=== PATIENT | female | born 1955 | race Caucasian/White ===

== ENCOUNTER 2020-05-22 09:43 | Outpatient (REF) | payer MEDICARE, SELFPAY | END 2020-05-22 09:44 | disposition home or self-care (01) | LOC: HO.LAB 09:43 | PROVIDERS: Visit Provider Internal Medicine | DX: Z20.828 Contact with and (suspected) exposure to other viral communicable diseases (principal) | CPT/HCPCS: C9803; U0003 ==

== ENCOUNTER 2021-01-28 09:04 | Emergency (ER) | payer MEDICARE, SELFPAY ==
--- NOTE | ~2021-01-28 | XR_ITS ---
EXAMINATION: XR CHEST CLINICAL INFORMATION: Bilateral flank pain COMPARISON: None TECHNIQUE: 2 views of the chest were obtained. FINDINGS: Lungs are clear. There is no pneumothorax, pneumomediastinum, or free air beneath the diaphragms. No hyperinflation, airspace consolidation, or effusion. The heart is normal in size. The costophrenic sulci are clear. The heart is normal in size and the hilar and mediastinal contours are normal. Bony structures are unremarkable. XR/XR chest 2V IMPRESSION: Unremarkable examination.
[2021-01-28 10:08] VITALS: BP 153/98; PULSE 62; RESP 16; TEMP 36.6; O2SAT 98; BMI 25.6
[2021-01-28] MEDS: Cyclobenzaprine HCl 5 MG TABLET PO (10:22)
[2021-01-28] MEDS: Lidocaine 4 % Patch ADH..PATCH 1 PATCH TRANSDERMA (10:23)
[2021-01-28] MEDS: Ketorolac Tromethamine 15 MG/ML VIAL IM ×2 (10:23)
--- NOTE | 2021-01-28 10:32 | ED.BACK ---
HPI - Back Pain/Injury General Chief Complaint: Back Pain/Injury Stated Complaint: Back Pain, nausea Time Seen by Provider: 01/28/21 09:59 Source: patient Mode of arrival: ambulatory History of Present Illness HPI Narrative: 65-year-old female with a past medical history of hyperlipidemia, hypertension, presenting to the ED complaining of bilateral flank pain and nausea nausea x1 week, and nonbloody diarrhea x3 weeks. Admits to golfing, denies other injury/trauma or falls. Denies fever, chills, vomiting, constipation, hematuria, dysuria, bloody BM/melena, numbness/tingling, CP/SOB Denies suspicious food intake, recent travel MD elicited complaint: back pain Related Data Previous Rx's Medication Instructions Recorded acetaminophen [Tylenol Extra 500 mg PO Q6H PRN #20 tab 01/28/21 Strength] cyclobenzaprine 5 mg PO Q8H PRN 5 Days #14 tab 01/28/21 lidocaine [Lidoderm] 1 patch TOPICAL DAILY PRN #30 ea 01/28/21 MDD remove after 12 hours naproxen 500 mg PO BID PRN 10 Days #20 tab 01/28/21 ondansetron HCl [Zofran] 4 mg PO Q8H PRN #10 tab 01/28/21 oxycodone 5 mg PO Q8H PRN 3 Days #9 tab 01/28/21 Allergies Allergy/AdvReac Type Severity Reaction Status Date / Time No Known Allergies Allergy Unverified 03/28/20 17:23 Review of Systems Review of Systems: Constitutional: No Fever, No Chills, No Fatigue, No Malaise Cardiovascular: No Chest Pain, No SOB Respiratory: No Cough, No Dyspnea Gastrointestinal: + Nausea, No Vomiting, + Diarrhea, No Constipation, No Abdominal pain, No Hematochezia, No Melena Genitourinary: No Dysuria, No Urinary Frequency, No Hematuria, + Flank Pain, No Urinary Flow Changes, No Hesitancy Musculoskeletal: No joint pain, No Myalgias, No Joint Swelling Skin: No Skin Lesions, No rash Neuro: No Weakness, No Numbness, No Paresthesias, No Headache Yes all other systems are reviewed and are negative Neurologic: Denies Sensory deficit (Neuro) [facility] Past Medical History Attestation statement: The following information was validated with the patient. Medical History (Updated 01/28/21 @ 11:22 by EZEQUIEL Sunshine) HLD (hyperlipidemia) HTN (hypertension) Social History Social History Alcohol intake: never Patient Tobacco Use Status: Never used Tobacco Use of substances other than those prescribed or required for medical reasons: No Advance Directives: No Advance Directives Information Provided: No Physical Exam Vital Signs: Vital Signs: Last Vital Signs Temp 97.9 F 01/28/21 10:08 Pulse 62 01/28/21 10:08 Resp 16 01/28/21 10:08 BP 153/98 H 01/28/21 10:08 Pulse Ox 98 01/28/21 10:08 Body Mass Index 25.6 Const: General: cooperative, healthy appearing and no acute distress Orientation/consciousness: patient oriented x3 Limitations: no limitations HENMT: Head: Yes normal to inspection Ears: hearing grossly normal bilaterally General nose exam: Normal external nose present Face and sinus: Yes normal facial exam Eyes: General: appearance normal, both eyes and all related structures EOM: EOMs intact bilaterally Neck: Neck: Yes normal visual inspection and Yes no meningeal signs Resp: Effort & Inspection: normal respiratory effort Auscultation: clear to auscultation bilaterally, no rales, no rhonchi and no wheezes Cardio: Rate: regular rate Heart sounds: S1 normal heart sound present and S2 normal heart sound present GI: Inspection: Yes normal to inspection Palpation (GI): Soft to palpation, nontender, no guarding and not rigid : General: Yes CVA tenderness bilateral Back/Spine/Pelvis: Other: No midline cervical/thoracic/lumbar spinous tenderness/step-off or deformity Skin: Rashes: no rashes Wounds: no wounds Neuro: Other: No saddle anesthesia General: patient oriented x3, gait normal, tone normal, moves all extremities and no meningeal signs Gait exam (Neuro): Normal gait present Motor exam (neuro): 5/5 motor strength present throughout Sensory Exam: No Sensory deficit (Neuro) Extrem: General: Yes normal to inspection Course Course Course Narrative: XR chest 2V IMPRESSION: Unremarkable examination. -1108--UA with trace blood patient with known history of hematuria. Not infected. Admits had outpatient labs through [facility] drawn this week which were WNL other than mildly elevated bilirubin. Patient reports back pain still present, discussed/offered labs and stool study, with shared decision making and recent labs just performed patient would like to follow-up with PCP, given sterile to provide stool sample for outpatient stool studies with PCP. Results discussed with patient, low suspicion for renal stone/pyelonephritis with UA results. Likely MSK pain. Worrisome signs and symptoms and strict return precautions discussed including close follow-up with PCP, patient verbalized understanding feel safe for discharge home MDM - Back Pain/Injury MDM Narrative Medical decision making narrative: 65-year-old female with a past medical history of hyperlipidemia, hypertension, presenting to the ED complaining of bilateral flank pain and nausea nausea x1 week, and diarrhea x3 weeks. On exam vital signs stable, NAD/nontoxic, no midline spinous tenderness throughout, no red flag symptoms, lungs CTA, bilateral CVAT. Concern for MSK pain vs pyelo vs ?Renal stone vs underlying pneumonia. Low concern for PE Plan: UA, CXR, symptomatic treatment, +/-lab/US, reassess Lab Data Labs: Lab Results 01/28/21 Range/Units 10:28 Urine Color YELLOW Urine Appearance CLEAR Urine pH 7.5 (5.0-8.0) Ur Specific [place] 1.010 (1.005-1.025) Urine Protein NEG (NEG-TRACE) MG/DL Urine Glucose (UA) NEG (NEG) MG/DL Urine Ketones NEG (NEG) MG/DL Urine Blood TRACE (NEG) Urine Nitrite NEG (NEG) Ur Leukocyte Esterase NEG (NEG) Urine RBC 1-4 (0) /HPF Urine WBC 0-2 (0-4) /HPF Ur Squamous Epith Cells TRACE /LPF Urine Bacteria NONE /LPF Discharge Plan Discharge Clinical Impression: Thoracic back pain, Diarrhea Patient Disposition: Home, Self-Care Instructions: Acute Diarrhea (ED), Back Pain (ED) Additional Instructions: Your x-ray was unremarkable, your urine had trace blood which is chronic for you Your given a sterile cup, please supply your PCP with a stool sample Zofran as an antinausea medication, take as needed Make sure you are staying hydrated at home Please call your doctor for follow-up Your pain is likely musculoskeletal Flexeril is a muscle relaxer, take at night as it makes you drowsy, do not drive, drink alcohol, or operate machinery while taking it Naproxen as an anti-inflammatory / pain medication, take with food Lidoderm patches are numbing patches, apply to painful area In addition take Tylenol at home Oxycodone as an opiate pain medication, take only when pain is severe for the next 3 days If symptoms persist or worsen, pain becomes unbearable, you developed urinary retention or incontinence, or weakness return to the ED Prescriptions: New ondansetron HCl [Zofran] 4 mg tablet 4 mg PO Q8H PRN (Reason: nausea and vomiting) Qty: 10 RF: 0 cyclobenzaprine 5 mg tablet 5 mg PO Q8H PRN (Reason: pain (scale score 7-10)) 5 Days Qty: 14 RF: 0 acetaminophen [Tylenol Extra Strength] 500 mg tablet 500 mg PO Q6H PRN (Reason: pain or fever) Qty: 20 RF: 0 lidocaine [Lidoderm] 5 % adhesive patch,medicated 1 patch topical DAILY MDD remove after 12 hours PRN (Reason: pain) Qty: 30 RF: 0 naproxen 500 mg tablet 500 mg PO BID PRN (Reason: pain) 10 Days Qty: 20 RF: 0 oxycodone 5 mg tablet 5 mg PO Q8H PRN (Reason: pain, severe) 3 Days Qty: 9 RF: 0 Referrals: Yesenia Moreno NP [Primary Care Provider] - 2 days
[2021-01-28 10:49] LABS: Glucose Urine UA NEG (NEG); Leukocyte Esterase Urine NEG (NEG); Nitrite Urine NEG (NEG); PH 7.5 (5.0-8.0); Urine Blood TRACE (NEG); Urine Ketones NEG (NEG); Urine Protein NEG (NEG-TRACE)
[2021-01-28 10:51] LABS: Appearance Urine CLEAR; Color Urine YELLOW
[2021-01-28 11:06] LABS: Squamous Epithelial Cell Urine TRACE /LPF; WBC Urine 0-2 /HPF (0-4)
== END 2021-01-28 11:39 | disposition home or self-care (01) ==
PROVIDERS: Physician Assistant; Emergency Provider Emergency Medicine; PCP Nurse Practitioner Family
DX: M54.6 Pain in thoracic spine (principal); R19.7 Diarrhea, unspecified; I10 Essential (primary) hypertension
CPT/HCPCS: 71046; 81001; 96372; 99284; J1885

== ENCOUNTER 2021-01-29 10:28 | Outpatient (REF) | payer MEDICARE, OTHER, SELFPAY ==
[2021-01-29 11:30] LABS: CDiff Gene PCR NEGATIVE (Negative)
== END 2021-01-29 10:29 | disposition home or self-care (01) ==
LOC: HO.LNP 10:28
PROVIDERS: PCP Nurse Practitioner Family; Visit Provider Physician Assistant
DX: R19.7 Diarrhea, unspecified (principal)
CPT/HCPCS: 87045; 87046; 87493

== ENCOUNTER 2021-06-10 09:42 | Outpatient (REF) | payer MEDICARE, OTHER, SELFPAY ==
[2021-06-10 10:14] LABS: COVID-19 Test Negative (Negative)
== END 2021-06-10 09:43 | disposition home or self-care (01) ==
LOC: HO.LAB 09:42
PROVIDERS: Visit Provider Internal Medicine
DX: Z20.822 Contact with and (suspected) exposure to COVID-19 (principal)
CPT/HCPCS: 36415; 87635; C9803

== ENCOUNTER 2021-06-16 09:59 | Outpatient (REF) | payer MEDICARE, OTHER, SELFPAY | END 2021-06-16 10:00 | disposition home or self-care (01) | LOC: HO.LAB 09:59 | PROVIDERS: Visit Provider Internal Medicine | DX: Z20.822 Contact with and (suspected) exposure to COVID-19 (principal) | CPT/HCPCS: C9803; U0003; U0005 ==

== ENCOUNTER 2022-02-04 08:49 | Emergency (ER) | payer MEDICARE, OTHER, SELFPAY ==
[2022-02-04 09:26] VITALS: BP 146/78; PULSE 66; RESP 18; TEMP 36.9; O2SAT 97; BMI 24.7
[2022-02-04 10:20] LABS: MANUAL DIFF FLAG NO
[2022-02-04 10:22] LABS: Basophils Percent Auto 0.5 % (0-2); Eosinophils Absolute Auto 0.2 X10*3/uL (0.0-0.4); Eosinophils Percent Auto 3.9 % (0-4); Hematocrit 44.2 % (37.0-47.0); Hemoglobin 14.7 g/dl (12.0-16.0); Imm Gran Abs Auto 0.01 X10*3/uL (0.00-0.03); Imm Gran Pct Auto 0.2 % (0.0-0.4); Lymphocytes Percent Auto 34.2 % (20-40); Mean Corpuscular HGB Conc 33.3 g/dl (31.0-35.0); Mean Corpuscular Hemoglobin 29.6 pg (27.0-33.0); Mean Corpuscular Volume 89.1 fL (80.0-98.0); Mean Platelet Volume 9.3 fL (9.4-12.3); Monocytes Absolute Auto 0.5 X10*3/uL (0.1-1.2); Monocytes Percent Auto 7.7 % (2-11); Neutrophils Absolute Auto 3.1 x10*3/uL (2.0-8.3); Neutrophils Percent Auto 53.5 % (45-73); Platelet Count 219 X10*3/uL (160-400); Red Blood Count 4.96 X10*6/uL (4.20-5.50); White Blood Count 5.9 X10*3/uL (4.8-10.8)
[2022-02-04 10:40] LABS: Anion Gap 12 (12-20); Blood Urea Nitrogen 18 mg/dL (9-16); Calcium 9.1 mg/dL (8.4-10.2); Carbon Dioxide 27 mmol/L (22-29); Chloride 105 mmol/L (96-108); Estimated Glomerular Filt Rate > 60; Glucose Random 88 mg/dL (60-115); Sodium 140 mmol/L (135-145)
--- NOTE | 2022-02-04 13:29 | ED.EXTPRO ---
HPI - Extremity Problem General Chief complaint: Extremity Problem Stated complaint: R ARM NUMBNESS BURNING NO KNOWN INJ Time Seen by Provider: 02/04/22 13:06 Source: patient Mode of arrival: ambulatory Limitations: no limitations History of Present Illness HPI Narrative: Patient presents to the emergency department for evaluation of right arm pain described as burning, with intermittent numbness. She is from [place] currently staying with her mother until April. She states that she was being treated for a ?pinched nerve? she had been given a Medrol Dosepak without significant improvement, had been in physical therapy for 3 sessions without any improvement. She presents today as she continues to have this same pain. She does note that it is worse at night, and she had a really difficult time sleeping last night. She denies any neck pain, any precipitating injuries. Denies any symptoms to the left upper extremity, no back pain, no bladder or bowel dysfunction, no numbness or tingling to the lower extremities nor weakness. Related Data Previous Rx's Medication Instructions Recorded acetaminophen 500 mg tablet 500 mg PO Q6H PRN pain or fever 01/28/21 (Tylenol Extra Strength) #20 tabs cyclobenzaprine 5 mg tablet 5 mg PO Q8H PRN pain (scale score 01/28/21 7-10) 5 days #14 tabs lidocaine 5 % topical patch 1 patch topical DAILY PRN pain #30 01/28/21 (Lidoderm) ea naproxen 500 mg tablet 500 mg PO BID PRN pain 10 days #20 01/28/21 tabs ondansetron HCl 4 mg tablet 4 mg PO Q8H PRN nausea and 01/28/21 (Zofran) vomiting #10 tabs oxycodone 5 mg tablet 5 mg PO Q8H PRN pain, severe 3 01/28/21 days #9 tabs Allergies Allergy/AdvReac Type Severity Reaction Status Date / Time No Known Allergies Allergy Unverified 03/28/20 17:23 Review of Systems Review of Systems: Constitutional: No weight loss. No fever. No chills. No weakness. No fatigue. Skin: No rash. No itching. Cardiovascular: No chest pain. No chest pressure. No palpitations. No pedal edema. Respiratory: No shortness of breath. No cough. No sputum production. Gastrointestinal: No anorexia. No nausea. No vomiting. No diarrhea. No abdominal pain. Genitourinary: No burning micturition. No urinary frequency. No incontinence. Neurologic: No headache. No dizziness. No pre-syncope/ syncope. No unilateral weakness. No ataxia. Positive intermittent numbness. No tingling. No change in bowel or bladder control. Musculoskeletal: Positive arm pain No back pain. No joint pain. No stiffness. Hematologic: No bleeding. No bruising. Lymphatics: No enlarged lymph nodes. Psychiatric:No depression. No anxiety. Endocrine: No reports of sweating. No cold or heat intolerance. No polyuria. No polydipsia. Yes all other systems are reviewed and are negative [facility] Past Medical History Attestation statement: The following information was validated with the patient. Source: old records reviewed Medical History HLD (hyperlipidemia) HTN (hypertension) Social History Social History Alcohol intake: never Patient Tobacco Use Status: Never used Tobacco Advance Directives: No Advance Directives Information Provided: No Physical Exam Vital Signs: Vital Signs: Last Vital Signs Temp 98.4 F 02/04/22 09:26 Pulse 66 02/04/22 09:26 Resp 18 02/04/22 09:26 BP 146/78 H 02/04/22 09:26 Pulse Ox 97 02/04/22 09:26 O2 Del Method 02/04/22 09:26 BMI result Body Mass Index 24.7 Appearance: Alert.?Oriented to person, place and time. No acute distress.?Normal affect. Eyes: Pupils equal, round and reactive to light.? ENT: Pharynx normal.?? Neck: Normal inspection.? Neck supple.??No midline cervical spine tenderness, step-offs, deformities CVS: Heart sounds normal. Normal heart rate and rhythm.? Pulses normal.?? Respiratory: No respiratory distress.? Lung sounds clear to auscultation bilaterally?? Abdomen: Soft and non-tender. Normoactive bowel sounds. ? Skin: Skin warm and dry.? Normal skin color.? ? Extremities: No lower extremity edema.? Bilateral upper extremity strength strong and equal. Palpable 2+ radial pulse bilaterally. Phalen sign is equivocal. Tinel sign is equivocal Neuro: Moves all extremities spontaneously. Sensation intact bilaterally. CN II-XII intact. No focal neuro deficits. Ambulates with normal steady gait. Course Course Course Narrative: Patient is a 66-year-old female with a past medical history of hypertension and hyperlipidemia presented to the emergency department for evaluation of persistent right arm pain described as burning with intermittent, pain is been ongoing over the past 3 weeks but was noted to be worse last night. There is no neurological deficit distally. No weakness. Has full AROM to the right shoulder. She was previously being treated for a pinched in her before she came to visit her mother for a few months. She states that she had an x-ray of her cervical spine and an x-ray of her right shoulder both of which were unremarkable. Given that the pain is felt to be particularly worse at night especially to her hand and forearm we discussed the possibility of carpal tunnel syndrome, Phalen sign and Tinel sign are equivocal on exam difficult for her to discern whether the symptoms are exacerbated with either movement. Discussed treatment with anti-inflammatories, as well as a wrist splint which she agrees to purchase from a pharmacy. She states that she does not have a primary care provider in this location or insurance. She plans to go back to her home residence in April, which is 3 months from now. Discussed that she likely needs further outpatient workup for evaluation of nerve impingement or EMG studies for carpal tunnel syndrome. Advised patient that I could prescribe her a short course of gabapentin to trial and see whether this helps with her pain as it does sound neuropathic in nature. She states that she does not want to take the medication if she is not going to be given an extended course of it. Discussed that that I would not prescribe an extended course from an emergency department setting, she would need appropriate follow-up. Encouraged her to consider establishing care with a primary care provider in this area she is going to remain here for some time. Patient states she will continue taking her naproxen as well as trialing the wrist splints at night. Discussed worsening signs that she should return back emergency department for. All questions were answered, she was discharged home in stable condition. MDM - Extremity (Nontraumatic) Medical Records Attestation: I reviewed the patient's medical records. Lab Data Attestation: I reviewed the patient's lab results. Result diagrams: 02/04/22 10:15 02/04/22 10:15 Labs: Lab Results 02/04/22 02/04/22 Range/Units 10:15 10:15 WBC 5.9 (4.8-10.8) X10*3/uL RBC 4.96 (4.20-5.50) X10*6/uL Hgb 14.7 (12.0-16.0) g/dl Hct 44.2 (37.0-47.0) % MCV 89.1 (80.0-98.0) fL MCH 29.6 (27.0-33.0) pg MCHC 33.3 (31.0-35.0) g/dl RDW 13.0 (11.0-16.0) % Plt Count 219 (160-400) X10*3/uL MPV 9.3 L (9.4-12.3) fL Immature Gran % (Auto) 0.2 (0.0-0.4) % Neut % (Auto) 53.5 (45-73) % Lymph % (Auto) 34.2 (20-40) % [place] % (Auto) 7.7 (2-11) % Eos % (Auto) 3.9 (0-4) % Baso % (Auto) 0.5 (0-2) % Lymph # (Auto) 2.0 (1.2-4.9) X10*3/uL [place] # (Auto) 0.5 (0.1-1.2) X10*3/uL Eos # (Auto) 0.2 (0.0-0.4) X10*3/uL Baso # (Auto) 0.0 (0.0-0.2) X10*3/uL Abs Immat Gran (auto) 0.01 (0.00-0.03) X10*3/uL Absolute Neuts (auto) 3.1 (2.0-8.3) x10*3/uL Absolute Nucleated RBC 0.000 (0.0-0.012) X10*3/uL Nucleated RBC % (auto) 0.0 (0.0-0.2) /100WBC Sodium 140 (135-145) mmol/L Potassium 4.0 (3.3-5.1) mmol/L Chloride 105 (96-108) mmol/L Carbon Dioxide 27 (22-29) mmol/L Anion Gap 12 (12-20) BUN 18 H (9-16) mg/dL Creatinine 0.81 (0.5-1.4) mg/dL Estim Creat Clear Calc 58.0 Estimated GFR > 60 Random Glucose 88 (60-115) mg/dL Calcium 9.1 (8.4-10.2) mg/dL Discharge Plan Discharge Clinical Impression: Neuropathy, Arm pain Patient Disposition: Home, Self-Care Instructions: Peripheral Neuropathy (ED), Arm Pain (ED) Additional Instructions: You advised us that you are being treated for a pinched nerve by your doctor, you had an x-ray of your neck and your right shoulder which were normal. You trialed a steroid Dosepak without significant improvement as well as physical therapy. As we discussed, the symptoms that you are describing seem most consistent with neuropathy, which may be secondary to a pinched nerve, we also discussed the possibility of carpal tunnel syndrome as a cause for your symptoms. Use a neutral/cock-up wrist splint at night You were offered a medication called gabapentin to trial for your pain however you declined and will continue taking your naproxen. As we discussed, you will likely need further outpatient workup, including EMG nerve studies, and possible MRI in the future. If you are going to remain in this area, you should consider having a primary care provider established here. Please feel free to return to the emergency department with any new or worsening symptoms or concerns. Prescriptions: No Action ondansetron HCl [Zofran] 4 mg tablet 4 mg PO Q8H PRN (Reason: nausea and vomiting) Qty: 10 0RF cyclobenzaprine 5 mg tablet 5 mg PO Q8H PRN (Reason: pain (scale score 7-10)) 5 Days Qty: 14 0RF acetaminophen [Tylenol Extra Strength] 500 mg tablet 500 mg PO Q6H PRN (Reason: pain or fever) Qty: 20 0RF lidocaine [Lidoderm] 5 % adhesive patch,medicated 1 patch topical DAILY MDD remove after 12 hours PRN (Reason: pain) Qty: 30 0RF Rx Instructions: leave on most painful area for up to 12 hrs naproxen 500 mg tablet 500 mg PO BID PRN (Reason: pain) 10 Days Qty: 20 0RF oxycodone 5 mg tablet 5 mg PO Q8H PRN (Reason: pain, severe) 3 Days Qty: 9 0RF Interventions: ED Discharge Assessment Last Done: 02/04/22 13:41 Discharge Date/Time: 02/04/22 13:42
== END 2022-02-04 13:42 | disposition home or self-care (01) ==
PROVIDERS: Emergency Provider Emergency Medicine
DX: G62.9 Polyneuropathy, unspecified (principal); M79.601 Pain in right arm; I10 Essential (primary) hypertension; E78.5 Hyperlipidemia, unspecified
CPT/HCPCS: 36415; 80048; 85025; 99282; 99283

== ENCOUNTER 2025-06-26 11:58 | Emergency (ER) | payer MEDICARE, SELFPAY ==
--- OUTSIDE RECORDS SUMMARY | 2024-07-20 03:45 | XMS_ITS ---
Author Organization [facility] Address [address] [address] Care Team Providers Care Shoe Cobbler Name Role Phone syeda rankin Primary Care Provider Unavailvicky e Kevin Heath Unavailable [phone] PCP, NO Unavailable Unavailable REASON FOR VISIT EKG Encounters Encounter Location Date Provider Diagnosis [facility] [address] [place] [phone] 07/20/2024 Kevin Heath HTN Hypertension I10 Assessments Encounter Date Diagnosis (ICD Code) Assessment Notes Treatment Notes Treatment Clinical Notes Section Notes 07/20/2024 HTN Hypertension (ICD-10 - I10) Plan Of Treatment Pending Test Test Name Order Date Electrocardiogram (EKG) 07/20/2024 Next Appt Details Provider Name:Kevin Heath 07/13 09:00:00 AM, [facility], [address], Provider Name:Kevin Heath 07/13 09:15:00 AM, [facility] [address], [address], Progress Notes * ASMITA KIMOB:1955 (69 yo F)Acc No.[id number]:07/20/2024 Progress Notes Patient: SAULO GTZ Provider: Blanca Heath MD, Ph D, [facility]1955 A ge:68 Y S ex:Female Date:07/20/2024 Address:[address] [place] [phone] Pcp:syeda rankin Subjective: * Chief Complaints: * 1 . EKG. * Medical History: Objective: * Vitals: Assessment: * Assessment: 1. H TN Hypertension - I10 (Primary) Plan: * Treatment: * Procedure Codes: 9 3000 ELECTROCARDIOGRAM, COMPLETE * * Electronic signature of Kevin Heath [facility] on 06/26/2025 at 07:56 PM EST Sign off status: Pending * Provider: Blanca Heath MD, Ph D, [facility] Date: 0 07/20/2024 Generated for Rory cardona/Nissa/Kostaitting on: 08/27/2024 07:56 PM EST
--- OUTSIDE RECORDS SUMMARY | 2025-01-18 02:45 | XMS_ITS ---
Author Organization [facility] Address [facility] [address] Care Team Providers Care Sales Associate Key Holder Name Role Phone syeda rankin Primary Care Provider Kevin Hess [phone] PCP, NO Unavailable Unavailable REASON FOR VISIT Echocardiogram Encounters Encounter Location Date Provider Diagnosis [place] [id number] [address] 01/18/2025 Kevin Heath Tricuspid Regurgita tion, nonrheumatic I36.1 Assessments Encounter Date Diagnosis (ICD Code) Assessment Notes Treatment Notes Treatment Clinical Notes Section Notes 01/18/2025 Tricuspid Regurgitation, nonrheumatic (ICD-10 - I36.1) Plan Of Treatment Pending Test Test Name Order Date Echocardiogram 01/18/2025 Next Appt Details Provider Name:Kevin Heath 07/13 09:00:00 AM, [facility] [address], [address], Provider Name:Kevin Heath 07/13 09:15:00 AM, [facility] [address], [address], Progress Notes * ASMITA KIMOB:1955 (69 yo F)Acc No.[id number]:01/18/2025 Progress Notes Patient: SAULO GTZ Provider: Blanca Heath MD, Ph D, [facility] :1955 A ge:69 Y S ex:Female Date:01/18/2025 Address:[address] [place] [phone] Pcp:syeda rankin Subjective: * Chief Complaints: * 1 . Echocardiogram. * Medical History: Objective: * Vitals: Assessment: * Assessment: 1. T ricuspid Regurgitation, nonrheumatic - I36.1 (Primary) Plan: * Treatment: * Procedure Codes: 9 3306 ECHO TTE W/DOPPLER, COMPLETE * * Electronic signature of Kevin Heath [facility] on 06/26/2025 at 07:53 PM EST Sign off status: Pending * Provider: Blanca Heath MD, Ph D, [facility] Date: 0 01/18/2025 Generated for Rory cardona/Nissa/Kostaitting on: 1 08/27/2024 07:53 PM EST
--- OUTSIDE RECORDS SUMMARY | 2025-01-23 04:00 | XMS_ITS ---
Author Organization [facility] Address [address] [place] [address] Care Team Providers Care Advertising Photographer Name Role Phone syeda rankin Primary Care Provider Kevin Hess Unavailable [phone] PCP, NO Unavailable Unavailable REASON FOR VISIT EKG Encounters Encounter Location Date Provider Diagnosis [facility] [address] [place] [phone] 01/23/2025 Kevin Heath Tricuspid Regurgita tion, nonrheumatic I36.1 and HTN Hypertension I10 Assessments Encounter Date Diagnosis (ICD Code) Assessment Notes Treatment Notes Treatment Clinical Notes Section Notes 01/23/2025 Tricuspid Regurgitation, nonrheumatic (ICD-10 - I36.1) 01/23/2025 HTN Hypertension (ICD-10 - I10) Plan Of Treatment Pending Test Test Name Order Date Electrocardiogram (EKG) 01/23/2025 Next Appt Details Provider Name:Kevin Heath 07/13 09:00:00 AM, [facility] [address], [address], Provider Name:Kevin Heath 07/13 09:15:00 AM, [facility] [place] [address], [phone], Progress Notes * ASMITA KIMOB:1955 (69 yo F)Acc No.[id number]:01/23/2025 Progress Notes Patient: SAULO GTZ Provider: Blanca Heath MD, Ph D, [facility] :1955 A ge:69 Y S ex:Female Date:01/23/2025 Address:[address] [place], [place] [phone] Pcp:syeda rankin Subjective: * Chief Complaints: * 1 . EKG. * Medical History: Objective: * Vitals: Assessment: * Assessment: 1. T ricuspid Regurgitation, nonrheumatic - I36.1 (Primary) 2 . H TN Hypertension - I10 Plan: * Treatment: 2. H TN Hypertension I maging: Electrocardiogram (EKG) * Procedure Codes: 9 3000 ELECTROCARDIOGRAM, COMPLETE * * Electronic signature of Kevin Heath [facility] on 06/26/2025 at 07:55 PM EST Sign off status: Pending * Provider: Blanca [facility] MD, Ph D, [facility] Date: 0 01/23/2025 Generated for Rory cardona/Nissa/Kostaitting on: 1 08/27/2024 07:55 PM EST
--- OUTSIDE RECORDS SUMMARY | 2025-04-03 09:45 | XMS_ITS ---
Author Organization [facility] Address [address] [address] Care Team Providers Care Ladies Locker Room Attendant Name Role Phone syeda rankin Primary Care Provider Unavailvicky e Kevin Heath Unavailable [phone] PCP, NO Unavailable Unavailable REASON FOR VISIT EKG Encounters Encounter Location Date Provider Diagnosis [facility] [address] [place] [phone] 04/03/2025 Kevin Heath HTN Hypertension I10 Assessments Encounter Date Diagnosis (ICD Code) Assessment Notes Treatment Notes Treatment Clinical Notes Section Notes 04/03/2025 HTN Hypertension (ICD-10 - I10) Plan Of Treatment Pending Test Test Name Order Date Electrocardiogram (EKG) 04/03/2025 Next Appt Details Provider Name:Kevin Heath 07/13 09:00:00 AM, [facility], [address], Provider Name:Kevin Heath 07/13 09:15:00 AM, [facility] [address], [address], Progress Notes * ASMITA KIMOB:1955 (69 yo F)Acc No.[id number]:04/03/2025 Progress Notes Patient: SAULO GTZ Provider: Blanca Heath MD, Ph D, [facility]1955 A ge:69 Y S ex:Female Date:04/03/2025 Address:[address] [place] [id number] Pcp:syeda rankin Subjective: * Chief Complaints: * 1 . EKG. * Medical History: Objective: * Vitals: Assessment: * Assessment: 1. H TN Hypertension - I10 (Primary) Plan: * Treatment: * Procedure Codes: 9 3000 ELECTROCARDIOGRAM, COMPLETE * * Electronic signature of Kevin Heath [facility] on 06/26/2025 at 07:53 PM EST Sign off status: Pending * Provider: Blanca Heath MD, Ph D, [facility] Date: 0 04/03/2025 Generated for Rory cardona/Nissa/Kostaitting on: 1 08/27/2024 07:53 PM EST
--- OUTSIDE RECORDS SUMMARY | 2025-04-09 05:30 | XMS_ITS ---
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 I25.10 and Abn EKG R94.31 Assessments Encounter Date Diagnosis (ICD Code) Assessment Notes Treatment Notes Treatment Clinical Notes Section Notes 04/09/2025 Atherosclerotic heart disease of [place] coronary artery without angina pectoris (ICD-10 - I25.10) 04/09/2025 Abn EKG (ICD-10 - R94.31) Plan Of Treatment Pending Test Test Name Order Date Nuclear Stress Test Exercise 04/09/2025 Next Appt Details Provider Name:Kevin Heath 07/13 09:00:00 AM, [facility] [address], [address], Provider Name:Kevin Heath 07/13 09:15:00 AM, [facility] [address], [address], Progress Notes * GUME KIM:1955 (69 yo F)Acc No.[id number]:04/09/2025 Progress Notes Patient: SAULO GTZ Provider: Blanca Heath MD, Ph D, [facility] :1955 A ge:69 Y S ex:Female Date:04/09/2025 Address:[address] [place], [place] [phone] Pcp:syeda rankin Subjective: * Chief Complaints: * 1 . stress test, fasting, nothing to eat or drink after midnight except water, no caffine 12 hours prior, please arrive at 9:30am Nuclear stress test. * Medical History: Objective: * Vitals: Assessment: * Assessment: 1. A therosclerotic heart disease of [place] coronary artery without angina pectoris - I25.10 (Primary) 2 . A bn EKG - R94.31 Plan: * Treatment: 2. O thers I maging: Nuclear Stress Test Exercise * Procedure Codes: 9 3015 CARDIOVASCULAR STRESS TEST, A9500 TC 99M [facility]CH[facility], Units: 2.00 , 08205 HT MUSCLE IMAGE SPECT MULT GLOBAL * * Electronic signature of Kevin Heath [facility] on 06/26/2025 at 07:53 PM EST Sign off status: Pending * Provider: Blanca Heath MD, Ph D, [facility] Date: 0 04/09/2025 Generated for Rory cardona/Nissa/Pablo on: 1 08/27/2024 07:53 PM EST
--- OUTSIDE RECORDS SUMMARY | 2025-04-16 09:00 | XMS_ITS ---
Author Organization [facility] Address [address] [address] Care Team Providers Care Cage Loader Name Role Phone syeda rankin Primary Care Provider Kevin Hess [phone] PCP, NO Unavailable Unavailable Allergies No Known Allergies REASON FOR VISIT 2 Weeks (Reason: Stress test) Medications Medication SIG (Take, Route, Frequency, Duration) Notes Start Date End Date Status Losartan Potassium 25 MG 1 tablet Orally Once a day; Duration: 90 days 09/20/2023 Active Atorvastatin Calcium 20 MG 1 tablet Oral ly Once a day; Duration: 90 days Active Aspirin 81 MG 1 tablet Orally Once a day; Duration: 30 day(s) Active Omeprazole 20 MG 1 tablet 30 minutes before morning meal Orally Once a day as needed as needed Active Nitroglycerin 0.4 MG 1 tablet under the tongue and allow to dissolve as needed. Take every 5 minutes up to 3 times if chest pain persists Sublingual as directed; Duration: 30 days Active Social History Tobacco Use: Social History Observation Description Date Details (start date - stop date) Former Smoker NA - NA Tobacco Control (Standard) Question Answer Notes Tobacco use: Former smoker How long has it been since you last smoked? Grea ter than 10 years Encounters Encounter Location Date Provider Diagnosis [facility] [address] [address] 04/16/2025 Kevin Heath Atherosclerotic hea rt disease of [place] coronary artery with unspecified angina pectoris I25.119 ; HTN Hypertension I10 ; Other hyperlipidemia E78.49 ; Palpitations R00.2 ; Abn EKG R94.31 ; Bradycardia R00.1 ; Tricuspid Regurgitation, nonrheumatic I36.1 ; Dizziness R42 and Other specified symptoms and signs involving the circulatory and respiratory systems R09.89 Assessments Encounter Date Diagnosis (ICD Code) Assessment Notes Treatment Notes Treatment Clinical Notes Section Notes 04/16/2025 Atherosclerotic heart disease of [place] coronary artery with unspecified angina pectoris (ICD-10 - I25.119) Mild to moderate non-obstructive CAD per [facility] 07/29/23. CP presents. Continue aggressive risk factor modifications. Continue optimal medical therapy. Order nitroglycerin 0.4 mg PRN. Continue ASA/statin therapy. Patient is not a good candidate for beta-vaibhav due to underlying bradycardia. order stress test to evaluate for ischemia Patient instructed to call 911 or present to the nearest ER for any concerning symptoms and expressed full understanding. 04/16/2025 HTN Hypertension (ICD-10 - I10) Stable. Well controlled on losartan 25mg daily, extra does prn Renal US 07/18/24: Abdominal aorta 2.0 cm, right RAR 2.11, left RAR 3.03 Pt intolerant to amlodipine. recommend patient to continue low salt diet, closely monitor BP at home, call office if BP is high. 04/16/2025 Other hyperlipidemia (ICD-10 - E78.49) Lipid panel 07/29/2023 TC 159, TG 48, HDL 77, LDL 72. 01/16/2025: TC 159, TG 62, HDL 72, LDL 75 Goal LDL <70, h/o muscle pain and fatigue on higher dose of statin. Advised lifestyle modifications. Continue heart healthy diet, continue statin therapy. Routine labs per PCP 04/16/2025 Palpitations (ICD-10 - R00.2) Stable. Not a good candidate for BB due to underlying bradycardia. If worsening symptoms, consider event monitor vs Holter monitor. Closely monitor HR. Periodic EKG Patient advised to avoid caffeine, ETOH and other stimulants Increase hydration Patient also advised to go to ED if palpitations worsen. 04/16/2025 Abn EKG (ICD-10 - R94.31) SR with acceptable HR. Routine EKG survelliance. 04/16/2025 Bradycardia (ICD-10 - R00.1) HR acceptable in office. Consider Event monitor vs Holter monitor in the future. Closely monitor HR. periodic ECG 04/16/2025 Tricuspid Regurgitation, nonrheumatic (ICD-10 - I36.1) mild TR Stable. Routine ECHO survelliance. 04/16/2025 Dizziness (ICD-10 - R42) Stable. Advised well hydration and slow position changes. Closely monitor BP and HR. 04/16/2025 Other specified symptoms and signs involving the circulatory and respiratory systems (ICD-10 - R09.89) b/l normal carotid arteries. stable Continue ASA/statin therapy. Routine survelliance. 04/16/2025 Other The patient car e coordinated with Dr. Brown by Florencio Richmond PA-C Plan Of Treatment Medication Medication Name Sig Start Date Stop Date Notes Nitroglycerin 0.4 MG 1 tablet under the tongue and allow to dissolve as needed. Take every 5 minutes up to 3 times if chest pain persists Sublingual as directed; Duration: 30 days Treatment Notes Assessment Notes Atherosclerotic heart diseas e of [place] coronary artery with unspecified angina pectoris Mild to moderate non-obstructive CAD per [facility] 07/29/23. CP presents. Continue aggressive risk factor modifications. Continue optimal medical therapy. Order nitroglycerin 0.4 mg PRN. Continue ASA/statin therapy. Patient is not a good candidate for beta-vaibhav due to underlying bradycardia. order stress test to evaluate for ischemia Patient instructed to call 911 or present to the nearest ER for any concerning symptoms and expressed full understanding. HTN Hypertension Stable. Well controlled on losartan 25mg daily, extra does prn Renal US 07/18/24: Abdominal aorta 2.0 cm, right RAR 2.11, left RAR 3.03 Pt intolerant to amlodipine. recommend patient to continue low salt diet, closely monitor BP at home, call office if BP is high. Other hyperlipidemia Lipid panel 07/29/2023 TC 159, TG 48, HDL 77, LDL 72. 01/16/2025: TC 159, TG 62, HDL 72, LDL 75 Goal LDL <70, h/o muscle pain and fatigue on higher dose of statin. Advised lifestyle modifications. Continue heart healthy diet, continue statin therapy. Routine labs per PCP Palpitations Stable. Not a good candidate for BB due to underlying bradycardia. If worsening symptoms, consider event monitor vs Holter monitor. Closely monitor HR. Periodic EKG Patient advised to avoid caffeine, ETOH and other stimulants Increase hydration Patient also advised to go to ED if palpitations worsen. Abn EKG SR with acceptable HR. Routine EKG survelliance. Bradycardia HR acceptable in office. Consider Event monitor vs Holter monitor in the future. Closely monitor HR. periodic ECG Tricuspid Regurgitation, nonrheumatic mild TR Stable. Routine ECHO survelliance. Dizziness Stable. Advised well hydration and slow position changes. Closely monitor BP and HR. Other specified symptoms and signs involving the circulatory and respiratory systems b/l normal carotid arteries. stable Continue ASA/statin therapy. Routine survelliance. 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 Brown by Florencio Richmond PA-C Next Appt Details Provider Name:Kevin Heath, 07/13 09:00:00 AM, [address] [place] [address], [phone], Provider Name:Kevin Heath, 07/13 09:15:00 AM, [address] [place] [address], [phone], Progress Notes * ASMITA KIMOB:1955 (69 yo F)Acc No.[id number]:04/16/2025 Progress Notes Patient: SAULO GTZ Provider: Blanca Heath MD, Ph D, [facility] :1955 A ge:69 Y S ex:Female Date:04/16/2025 Address:[address] [place], [place] [phone] Pcp:syeda rankin Subjective: * Chief Complaints: * 1 . 2 Weeks (Reason: Stress test). * HPI: F ollow-Up Visit Note: 69 year old female with PMH of HTN, HLD, bradycardia, mild to moderate CAD per [facility] 07/29/23, GERD, remote smoking, h/o breast cancer, pancreatic cyst managed by Dr. Nathan at [facility] who comes to the office for a follow up. Patient presents to office due to complaints of chest pain. Patient states symptoms started last Wednesday and comes and goes. Patient states symptoms feel sharp and dull. Symptom occurs on the l eft side of her chest. Patient has associated symptoms of SOB that occurs with chest discomfort. Patient denies any active pain in the office. Patient has palpitations that are unchanged from baseline. Patient denies syncope, TIA/stroke symptoms, or edema. BP 130/76, HR 60. EKG today shows SR with HR 59. DIAGNOSTICS: Carotid US 09/14/23 b/l normal carotid arteries. ECHO 07/27/23 (PCP) mild LVH, EF 60-65%, Grade I DD, mild AV sclerosis, mild TR. ECHO 01/18/25: Mild LVH, EF 60-65%, grade IDD, trace AR/MR, mild TR, RVSP 34 mmHg LHC 07/29/23 mild to moderate non-obstructive CAD, mCFx 30% stenosis, OM1 30%m LAD 30-50% stenosis, DIAG 50% stenosis, RPDA 30% stenosis, EF 55%. Renal US 07/18/24: Abdominal aorta 2.0 cm, right RAR 2.11, left RAR 3.03. * ROS: G eneral/Constitutional: Change in appetite d enies. C hills d enies. F ever d enies. N ight sweats d enies. R espiratory: Comments S HPI for details. C ough d enies. S hortness of breath at rest d enies. S hortness of breath with exertion d enies. W heezing d enies. C ardiovascular: Comments S HPI for details. C hest pain at rest d enies. C hest pain with exertion d enies. I rregular heartbeat d enies. D iaphoresis d enies. G astrointestinal: Abdominal pain d enies. D iarrhea d enies. N ausea d enies. V omiting d enies . O phthalmologic: Blurred vision d enies. D ischarge d enies. E ye Pain d enies. E NT: Decreased hearing d enies. S ore throat d enies.?Swollen glands d enies. E ndocrine: Cold intolerance d enies. E xcessive thirst d enies. H eat intolerance d enies. W eight loss d enies. N eurologic: Dizziness d enies. F ainting d enies. H eadache?denies. L oss of strength d enies. L oss of use of extremity d enies. ? G enitourinary: Blood in urine d enies. D ifficulty urinating d enies. F requent urination d enies. M usculoskeletal: Painful joints d enies. W eakness d enies. ? S kin: Dry skin d enies. I tching d enies. R ray d enies. * Medical History: m ild to moderate non-obstructive CAD, HLD, GERD, Remote smoking, Breast cancer. * Surgical History: h ysterectomy . * Family History: M other: , h/o DVT, PE, diagnosed with Hypertension, Stroke, A-FIB. * Social History: T obacco Use: T obacco Control (Standard) T obacco use: F ormer smoker H ow long has it been since you last smoked??Greater than 10 years M iscellaneous: C affeine: Yes, 1 cup per day of coffee. Alcohol: Yes, Wine, 4 per week. Living with: Alone. Marital status: single, . Occupation: Retired. * Medications: T aking Losartan Potassium 25 MG Tablet 1 tablet Orally Once a day , Taking Atorvastatin Calcium 20 MG Tablet 1 tablet Orally Once a day , Taking Aspirin 81 MG Tablet Delayed Release 1 tablet Orally Once a day , Taking Omeprazole 20 MG Tablet Delayed Release 1 tablet 30 minutes before morning meal Orally Once a day as needed , Notes to Pharmacist: as needed, Taking Nitroglycerin 0.4 MG Tablet Sublingual 1 tablet under the tongue and allow to dissolve as needed. Take every 5 minutes up to 3 times if chest pain persists Sublingual as directed * Allergies: N .K.D.A. Objective: * Vitals: * Examination: G eneral Examination: GENERAL APPEARANCE: w ell developed, well nourished, in no acute distress. HEAD: n ormocephalic, atraumatic. EYES: p upils equal, round, conjunctiva clear, extraocular movement full and smooth, sclera non-icteric. ORAL CAVITY: m ucosa moist. THROAT: no exudate. NECK/THYROID: c arotid pulse normal, no jugular venous distention, no cervical lymphadenopathy. LUNGS: c lear to auscultation bilaterally. HEART: r egular rate and rhythm, S1, S2 normal, no murmurs.? ABDOMEN: s oft, nontender, nondistended, bowel sounds present, no organomegaly . EXTREMITIES: n o clubbing, cyanosis, or edema. PERIPHERAL PULSES: 2 + posterior tibial. NEUROLOGIC: a lert and oriented x 3, nonfocal, motor strength normal upper and lower extremities. SKIN: w arm and dry, no suspicious lesions. ? C QM Exceptions: BETA Vaibhav therapy not given R shannan: M edical Reason T ype of Medical Reason: C ontraindicated Assessment: * Assessment: 1. A therosclerotic heart disease of [place] coronary artery with unspecified angina pectoris - I25.119 2 . H TN Hypertension - I10 3 . O ther hyperlipidemia - E78.49 4 . P alpitations - R00.2 5 . A bn EKG - R94.31 6. B radycardia - R00.1 7 . T ricuspid Regurgitation, nonrheumatic - I36.1 8 . D izziness - R42 9 . O ther specified symptoms and signs involving the circulatory and respiratory systems - R09.89 Plan: * Treatment: 2. H TN Hypertension Notes: Stable. Well controlled on losartan 25mg daily, extra does prn Renal US 07/18/24: Abdominal aorta 2.0 cm, right RAR 2.11, left RAR 3.03 Pt intolerant to amlodipine. recommend patient to continue low salt diet, closely monitor BP at home, call office if BP is high.? 3. O ther hyperlipidemia Notes: Lipid panel 07/29/2023 TC 159, TG 48, HDL 77, LDL 72. 01/16/2025: TC 159, TG 62, HDL 72, LDL 75 Goal LDL <70, h/o muscle pain and fatigue on higher dose of statin. Advised lifestyle modifications. Continue heart healthy diet, continue statin therapy. Routine labs per PCP 4. P alpitations Notes: Stable. Not a good candidate for BB due to underlying bradycardia. If worsening symptoms, consider event monitor vs Holter monitor. Closely monitor HR. Periodic EKG Patient advised to avoid caffeine, ETOH and other stimulants Increase hydration Patient also advised to go to ED if palpitations worsen. 5. A bn EKG Notes: SR with acceptable HR. Routine EKG survelliance. 6. B radycardia Notes: HR acceptable in office. Consider Event monitor vs Holter monitor in the future. Closely monitor HR. periodic ECG 7. T ricuspid Regurgitation, nonrheumatic Notes: mild TR Stable. Routine ECHO survelliance. 8. D izziness Notes: Stable. Advised well hydration and slow position changes. Closely monitor BP and HR. 9. O ther specified symptoms and signs involving the circulatory and respiratory systems Notes: b/l normal carotid arteries. stable Continue ASA/statin therapy. Routine survelliance. 10. O thers Start Nitroglycerin Tablet Sublingual, 0.4 MG, 1 tablet under the tongue and allow to dissolve as needed. Take every 5 minutes up to 3 times if chest pain persists, Sublingual, as directed, 30 days, 25, Refills 3. Notes: The patient care coordinated with Dr. Brown by Florencio Richmond PA-C * Preventive Medicine: Diet / Activity: L ow salt diet: L imit diet to 2 grams sodium daily.? L ow Fat / Low Cholesterol Diet: R ecommended. D ecrease carbohydrates: R ecommended. B risk walking 30-45 minutes daily 5-7 times a week: R ecommended. Counseling: Carissa P Management: BP Reassessment Plan: F ollow-up 2 weeks LIFESTYLE RECOMMENDATION: H ypertension education WEIGHT REDUCTION RECOMMENDATION: W eight-reducing diet education DIETARY RECOMMENDATIONS: D iet education H ypertension Counseling P lease follow a low salt diet, Limit your caffeine and alcohol intake. * Hypertension can be a silent disease- affecting the heart, brain and kidneys and is essential to be under good control. Checking your blood pressures outside of the office (home, pharmacy) aids your provider in determining adequate treatment. Increased physical fitness will help to improve and maintain good blood pressure control. H yperlipidemia Counseling * *Make sure to eat plenty of fruits, vegetables, whole grains and fish-all of which promote heart health. Avoid saturated and trans fats, which can raise cholesterol levels.. B IL Care goal follow-up plan: BMI management provided Y es Above Normal BMI Follow-up D ietary management education, guidance, and counseling * * Electronic signature of YAZAN YihDELENA on 06/26/2025 at 07:56 PM EST Sign off status: Pending * Provider: Blanca Heath MD, Ph D, [facility] Date: Generated for Rory cardona/Nissa/Pablo on: 08/27/2024 07:56 PM EST History and Physical Notes * HPI (History of Present Illness) Category Sub-Category Detail Notes Category Not es Follow-Up Visit Note 69 year old female with PMH of HTN, HLD, bradycardia, mild to moderate CAD per [facility] 07/29/23, GERD, remote smoking, h/o breast cancer, pancreatic cyst managed by Dr. Nathan at [facility] who comes to the office for a follow up. Patient presents to office due to complaints of chest pain. Patient states symptoms started last Wednesday and comes and goes. Patient states symptoms feel sharp and dull. Symptom occurs on the left side of her chest. Patient has associated symptoms of SOB that occurs with chest discomfort. Patient denies any active pain in the office. Patient has palpitations that are unchanged from baseline. Patient denies syncope, TIA/stroke symptoms, or edema. BP 130/76, HR 60. EKG today shows SR with HR 59. DIAGNOSTICS: Carotid US 09/14/23 b/l normal carotid arteries. ECHO 07/27/23 (PCP) mild LVH, EF 60-65%, Grade I DD, mild AV sclerosis, mild TR. ECHO 01/18/25: Mild LVH, EF 60-65%, grade IDD, trace AR/MR, mild TR, RVSP 34 mmHg [facility] 07/29/23 mild to moderate non-obstructive CAD, mCFx 30% stenosis, OM1 30%m LAD 30-50% stenosis, DIAG 50% stenosis, RPDA 30% stenosis, EF 55%. Renal US 07/18/24: Abdominal aorta 2.0 cm, right RAR 2.11, left RAR 3.03 Examination Category Sub-Category Detail Notes Category Not es General Examination GENERAL APPEARANCE: well dev eloped, well nourished, in no acute distress HEAD: normocephalic, atrau matic EYES: pupils equal, round, conjunctiva clear, extraocular movement full and smooth, sclera non-icteric THROAT: no exudate NECK/THYROID: carotid pulse normal , no jugular venous distention, no cervical lymphadenopathy HEART: regular rate and rhy thm, S1, S2 normal, no murmurs LUNGS: clear to auscultatio n bilaterally ABDOMEN: soft, nontender, non distended, bowel sounds present, no organomegaly NEUROLOGIC: alert and oriented x 3, nonfocal, motor strength normal upper and lower extremities SKIN: warm and dry, no antoine picious lesions EXTREMITIES: no clubbing, cyanosi s, or edema PERIPHERAL PULSES: 2+ posterior tibial ORAL CAVITY: mucosa moist CQM Exceptions BETA Vaibhav therapy not given Reason:: Med ical Reason Type of Medical Reason:: Contraindicated
--- OUTSIDE RECORDS SUMMARY | 2025-04-29 03:00 | XMS_ITS ---
Author Organization [employer] [facility] Address [address] [place] [address] Care Team Providers Care Regrader Name Role Phone Eliu Negron Primary Care Provider Kyle Clemons Unavailable [phone] REASON FOR VISIT Throbbing pain in left foot Social History Sex Assigned At : Social History Observation Description Sex Assigned At Female Encounters Encounter Location Date Provider Diagnosis [facility] [address] [address] 04/29/2025 Kyle Clemons Plan Of Treatment Next Appt Details Provider Name:Eliu Negron, 08/02/2025 10:30:00 AM, [address], [address], [address], Progress Notes * ASMITA KIMOB:1955 (69 yo F)Acc No.[id number]:04/29/2025 Telephone Only Visit Patient: Blanca JADELITSAULO Provider: EZEQUIEL Butcher, RD :1955 A ge:69 Y S ex:Female Date:04/29/2025 [facility] Pcp:Eliu Negron Subjective: * Chief Complaints: * T hrobbing pain in left foot * Electronic signature of EZEQUIEL Floyd on 06/26/2025 at 07:57 PM EST Sign off status: Pending * Provider: EZEQUIEL Butcher, RD Date: 1 Generated for Rory cardona/Nissa/Pablo on: 1 08/27/2024 07:57 PM EST
--- OUTSIDE RECORDS SUMMARY | 2025-05-30 04:30 | XMS_ITS ---
Author Organization [facility] Address [address] [address] Care Team Providers Care Sweep Molder Name Role Phone Jamil KEE, Eliu Primary Care Provider Unavaila Gus Jensen Unavailable [phone] Luis Haque Unavailable [phone] REASON FOR VISIT PT tx Encounters Encounter Location Date Provider Diagnosis [facility] [address] [address] 05/30/2025 Luis Haque Plan Of Treatment No Information Progress Notes * Amira KIMDOB: (69 yo F)Acc No.[id number]:05/30/2025 Patient: Blanca NOWAKAmira Provider: Sumi Haque PT :1955 A ge:69 Y S ex:Female Date:05/30/2025 Address:[address] [place], [place] [id number] Pcp:Eliu Negron MD Subjective: * Chief Complaints: * 1 . PT tx. * Medical History: Objective: * Vitals: Therapeutic Interventions: Assessment: Plan: * Treatment: * Billing Information: * Visit Code: * Procedure Codes: * Electronic signature of Luis Haque PT on 06/26/2025 at 07:53 PM EST Sign off status: Pending * Provider: Sumi Haque PT Date: 07/30/2024 Generated for Printi ng/Fakailag/eTransmitting on: 08/27/2024 07:53 PM EST
--- OUTSIDE RECORDS SUMMARY | 2025-05-30 08:00 | XMS_ITS ---
Author Organization [facility] Address [address] [address] Care Team Providers Care Concrete Sculptor Name Role Phone Jamil KEE, Eliu Primary Care Provider Unavaila Gus Jensen Unavailable [phone] Luis Haque Unavailable [phone] REASON FOR VISIT PT tx Encounters Encounter Location Date Provider Diagnosis [facility] [address] [address] 05/30/2025 Luis Haque Plan Of Treatment No Information Progress Notes * Amira KIMDOB: (69 yo F)Acc No.[id number]:05/30/2025 Patient: Blanca NOWAKAmira Provider: Sumi Haque PT :1955 A ge:69 Y S ex:Female Date:05/30/2025 Address:[address] [place], [place] [id number] Pcp:Eliu Negron MD Subjective: * Chief Complaints: * 1 . PT tx. * Medical History: Objective: * Vitals: Therapeutic Interventions: Assessment: Plan: * Treatment: * Billing Information: * Visit Code: * Procedure Codes: * Electronic signature of Luis Haque PT on 06/26/2025 at 07:57 PM EST Sign off status: Pending * Provider: Sumi Haque PT Date: 07/30/2024 Generated for Printi ng/Fakailag/eTransmitting on: 08/27/2024 07:57 PM EST
--- OUTSIDE RECORDS SUMMARY | 2025-06-01 04:30 | XMS_ITS ---
Author Organization [facility] Address [address] [address] Care Team Providers Care Consulting Intern Name Role Phone Eliu Negron MD Primary Care Provider Unavaila Gus Jensen Unavailable [phone] Luis Haque Unavailable [phone] REASON FOR VISIT PT tx 8 Medications Medication SIG (Take, Route, Frequency, Duration) Notes Start Date End Date Status Baby Aspirin Active Omeprazole Active Atorvastatin Calcium Active Doxycycline Monohydrate 100 MG 1 capsule Orally Once a day; Duration: 10 days 04/04/2025 Active Ketoconazole 2 % 1 application Externally Once a day; Duration: 14 days apply pea size drop to the area daily 05/08/2025 Active Losartan Potassium A ctive Encounters Encounter Location Date Provider Diagnosis [facility] [address] [address] 06/01/2025 Luis Haque Difficulty in walkin g, not elsewhere classified R26.2 ; Pain in left ankle and joints of left foot M25.572 ; Pain in left lower leg M79.662 ; Muscle weakness (generalized) M62.81 and Contracture of muscle, left lower leg M62.462 Assessments Encounter Date Diagnosis (ICD Code) Assessment Notes Treatment Notes Treatment Clinical Notes Section Notes 06/01/2025 Difficulty in walking, not elsewhere classified (ICD-10 - R26.2) 06/01/2025 Pain in left ankle and joints of left foot (ICD-10 - M25.572) 06/01/2025 Pain in left lower leg (ICD-10 - M79.662) 06/01/2025 Muscle weakness (generalized) (ICD-10 - M62.81) 06/01/2025 Contracture of muscle, left lower leg (ICD-10 - M62.462) Plan Of Treatment Next Appt Details Follow Up: Patient to follow up with DPM on 06/04/25., Reason: Progress Notes * Amira KIM JDOB: [birth year] (69 yo F)Acc No.[id number]:06/01/2025 Last Scheduled Visit Patient: Amira GTZ Provider: Sumi Haque PT :1955 A ge:69 Y S ex:Female Date:06/01/2025 Address:[address] [place], [place] [id number] Pcp:Eliu Negron MD Subjective: * Chief Complaints: * 1 . PT tx 8. * HPI: - : Pt reports 2-3/10 pain on left top of foot/front of ankle/foot upon entering therapy this morning. Pt relates the big toe wound is still there and she saw the I nfectious disease doctor ad was prescribed medications and was advised to not wear socks and keep the bandage on; pt was also advised to have the toe nail removed and pt is scheduled to see DPM next week, 05/29/25. Pt missed a visit due to cancelling accidentally and unable to get scheduled on same time due to it was already taken, as per patient. * Medical History: * Medications: T aking Atorvastatin Calcium , Taking Losartan Potassium , Taking Baby Aspirin , Taking Omeprazole , Taking Doxycycline Monohydrate 100 MG Capsule 1 capsule Orally Once a day , Taking Ketoconazole 2 % Cream 1 application Externally Once a day apply pea size drop to the area daily Objective: * Vitals: * Examination: G ait: Appearance a ntalgic using bilateral axillary crutches..? I nspection: Lower Extremity Functional Scale N o apparent swelling. + band aid on left big toe.. P alpation: Arch LT P ainful to deep palpation on left arch. lateral ankle p ainful to moderately deep palpation on left lateral ankle including sinus tarsi. dorsal surface of foot p ainful to moderately deep palpation on left dorsal foot. LEFT METATARSAL HEADS p ainful to deep palpation on left ball of the foot. M ore tender on left lat ankle, lateral/ant distal lower leg, Achilles tendon and sinus tarsi area. R yakov of Motion: Ankle RT ROM 1 , Dorsiflexion at 0 Knee Flexion 8 degrees, Plantarflexion 52 degrees, Inversion 24 d egrees, Eversion 6 degrees. Ankle LT ROM 1 , D orsiflexion at 0 Knee Flexion -19 degrees, P lantarflexion 32 degrees, I nversion 12 degrees, Eversion -5 degrees. S trength: Gastrocnemius RT . Gastrocnemius LT 2 +/5 with pain. Peroneal RT . Peroneal LT 2 +/5 with pain. Anterior Tibialis LT 2 +/5 with pain. Anterior Tibialis RT . inversion R . inversion L 2 +/5 with pain. Therapeutic Interventions: * Therapeutic Interventions: 1 . P hysical Therapy Today's treatment : Ther ex for LE ROM and strengthening per ex grid., Ther act for functional training per ex grid., Manual therapy to include Gentle manual soft tissue mobilization to left gastrocnemius and ankle/dorsal/plantar foot,, Direct Minutes : 45 minutes Total Treatment time : 45 minutes P erformed functional activities designed to improve proprioception, weight bearing/weight shifting with stabilization of ankle/foot region and activities to simulate bending and squatting to minimize injury or risk for falls in the home and community. Assessment: * Physical Therapy Assessment: 1. F unctional Limitations standing : limited standing time with pain ambulation : Limited to short periods of time of ambulation with pain; antalgic gait with bilateral axillary crutches Functional : Unable to normally bend, lift, or squat with pain assesment : Patient needed verbal cues for proper exercise performance. Patient felt strong stretch with all LE stretches. Patient showing limited ankle ROM with DF, , , See assessment above for details. Pt was educated on safely using bilateral axillary crutches to start with step to pattern to prevent exacerbation of pain and for safety. 2. I mpairments Prior Level of Functioning : Independent. 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 L manuel Term Goals 4 weeks : Patient to stand > 60 minutes without increased pain., Patient to ambulate >60 minutes with good heel toe gait pattern without increased pain., Patient to resume normal bending, lifting, and squatting activities without increased pain., Patient to be independent with HEP., increase ankle dorsi flexion to 5 degrees to allow normal gait mechanics 4. P T Prognosis Rehab potential : good 5. S hort Term Goals 2 weeks : Decrease pain with standing by 50%, Decrease pain with ambulation by 50%, Patient to have 1/2 grade improvement with ankle muscles., Issue HEP., Increase active dorsiflexion by 5 degrees to normalize gait pattern/heelstrike, transitions 6. P ain Description Pain Scale : left top of foot, Current, 3/10, 4/10, Best, 2/10, Worst, 8/10, lateral ankle Current, 5/10, 6/10, Best, 2/10, Worst, 8/10, and distal lateral lower leg , Current, 5/10, 6/10, Best, 2/10, Worst, 8/10 Pain Description : constant shooting sharp pain Pain Location : left top of foot, lateral ankle and distal lateral lower leg Pain Alleviators : Rest, Elevation Pain Aggravators : Any weight bearing activities, pressure/touch 7. P rior Level of Functioning Independent : ADL's, Self Care, Ambulation/Mobility, standing, lifting, bending, squatting Mental Status/Cognition : Alert and Oriented, to person, to Place, to time, insight and judgement intact 8. H istory of falls Fall history : no history 9. H istory of Injury Date of Onset : subacute to , chronic, Last DP appointment: 05/01/25 Duration : months Mechanism of injury : insidious onset Previous PT : Denies 10. C ertification of Medical Necessity Completed : It will be understood that the treatment plan mentioned above is certified medically necessary by the documenting therapist and referring physician mentioned in this report. Unless the physician indicates otherwise through written correspondance with our office, all further prescriptions will act as certification of medical necessity on the treatment plan indicated above. POC notification : Patient is aware of and agrees with the plan of care. P t was directed on safely performing exercises and activities without aggravating pain, Palpable tenderness on left ant/lateral distal lower leg, achilles tendon area, ant ankle/dorsal foot, sinus tarsi but denies tenderness on ball/arch area during soft tissue mobilization including attempted gentle IASTM and reports tingly sensation during manual therapy. + band aid on left big toe noted. Pt noted with significantly improved heel toe gait during ambulation. No complaints with continued progression of treatment with standing exercises/activities. HEP copy issued. Pt still demonstrates decreased left ankle DF with complaints of pain and tenderness on left dorsal foot/ankle area. Pt will benefit from continued skilled PT to further address deficits and pain and work toward achieving set goals. * Assessment: 1. D ifficulty in walking, not elsewhere classified - R26.2 (Primary) 2 . P ain in left ankle and joints of left foot - M25.572 3 . P ain in left lower leg - M79.662 4 . M uscle weakness (generalized) - M62.81 5 . C ontracture of muscle, left lower leg - M62.462 Plan: * Treatment: * Procedure Codes: 9 7140 MANUAL THERAPY, Modifiers: GP , 90748 THERAPEUTIC EXERCISES, Modifiers: GP , 04167 THERAPEUTIC ACTIVITIES, Modifiers: GP , 59 * Follow Up: P atient to follow up with DPM on 06/04/25. * Billing Information: * Visit Code: * Procedure Codes: 80526 MANUAL THERAPY. Modifiers: GP 27238 THERAPEUTIC EXERCISES. Modifiers: GP 82784 THERAPEUTIC ACTIVITIES. Modifiers: GP, 59 * Electronic signature of Luis Haque PT on 06/26/2025 at 07:56 PM EST Sign off status: Pending * Provider: Sumi Haque PT Date: 08/01/2024 Generated for Rory cardona/Nissa/Kostaitting on: 08/27/2024 07:56 PM EST History and Physical Notes * HPI (History of Present Illness) Category Sub-Category Detail Notes Category Not es - Pt reports 2-3/ 10 pain on left top of foot/front of ankle/foot upon entering therapy this morning. Pt relates the big toe wound is still there and she saw the Infectious disease doctor ad was prescribed medications and was advised to not wear socks and keep the bandage on; pt was also advised to have the toe nail removed and pt is scheduled to see DPM next week, 05/29/25. Pt missed a visit due to cancelling accidentally and unable to get scheduled on same time due to it was already taken, as per patient. Examination Category Sub-Category Detail Notes Category Not es Inspection Lower Extremity Functional Scale No apparent swelling. + band aid on left big toe. Range of Motion Ankle RT ROM 05/03/25 , Dorsi flexion at 0 Knee Flexion 8 degrees, Plantarflexion 52 degrees, Inversion 24 degrees, Eversion 6 degrees Ankle LT ROM 05/03/25 , Dorsiflex ion at 0 Knee Flexion -19 degrees, Plantarflexion 32 degrees, Inversion 12 degrees, Eversion -5 degrees Strength Gastrocnemius RT 5/5 Gastrocnemius LT 2+/5 with pain Peroneal RT 5/5 Peroneal LT 2+/5 with pain Anterior Tibialis LT 2+/5 with pain Anterior Tibialis RT 5/5 inversion R 5/5 inversion L 2+/5 with pain Palpation Arch LT Painful to deep palpation on left arch More tender on left lat ankle, lateral/ant distal lower leg, Achilles tendon and sinus tarsi area lateral ankle painful to moderatel y deep palpation on left lateral ankle including sinus tarsi dorsal surface of foot painful to modera tely deep palpation on left dorsal foot LEFT METATARSAL HEADS painful to deep pa lpation on left ball of the foot Gait Appearance antalgic using bilateral axi llary crutches.
--- OUTSIDE RECORDS SUMMARY | 2025-06-09 11:55 | XMS_ITS ---
Author Organization [facility] Address [address] [facility] [address] [place] [address] Care Team Providers Care Viticulturist Name Role Phone Eliu Negron Primary Care Provider [phone] Kiersten Zamarripa Unavailable [phone] REASON FOR VISIT Cough Social History Sex Assigned At : Social History Observation Description Sex Assigned At Female Encounters Encounter Location Date Provider Diagnosis [facility] [address] [address] 06/09/2025 Kiersten Zamarripa Plan Of Treatment Next Appt Details Provider Name:Eliu Negron, 08/02/2025 10:30:00 AM, [address], [facility] [address], [place], [address], Progress Notes * ASMITA KIMOB:1955 (69 yo F)Acc No.[id number]:06/09/2025 Telephone Only Visit Patient: SAULO GTZ Provider: EZEQUIEL Morales :1955 A ge:69 Y S ex:Female Date:06/09/2025 Address:[address] [place], [place] [phone] Pcp:Eliu Negron Subjective: * Chief Complaints: * C ough * Electronic signature of EZEQUIEL Anne on 06/26/2025 at 07:52 PM EST Sign off status: Pending * Provider: EZEQUIEL Morales Date: 08/09/2024 Generated for Rory cardona/Nissa/Pablo on: 08/27/2024 07:52 PM EST
--- OUTSIDE RECORDS SUMMARY | 2025-06-11 10:30 | XMS_ITS ---
Author Organization [facility] Address [address] [address] Care Team Providers Care Anvilsmith Name Role Phone Eliu Negron MD Primary Care Provider Unavaildarline eloisa Gus Vincent Unavailable [phone] Steven Roth Unavailable [phone] REASON FOR VISIT LT FT big toe nails removed, swollen; dropped a bottle a shampoo Medications Medication SIG (Take, Route, Frequency, Duration) Notes Start Date End Date Status Doxycycline Monohydrate 100 MG 1 capsule Orally Once a day; Duration: 10 days 04/04/2025 Active Omeprazole Active Baby Aspirin Active Losartan Potassium A ctive Ketoconazole 2 % 1 application Externally Once a day; Duration: 14 days apply pea size drop to the area daily 05/08/2025 Active Atorvastatin Calcium Active Encounters Encounter Location Date Provider Diagnosis [facility] [address] [place] [address] 06/11/2025 Steven Roth Plan Of Treatment No Information Progress Notes * Amira KIMDOB: (69 yo F)Acc No.[id number]:06/11/2025 Emergent Visit Patient: Amira GTZ Provider: Shankar Roth DPM :1955 A ge:69 Y S ex:Female Date:06/11/2025 Address:[address] [place], [place] [phone] Pcp:Eliu Negron MD Subjective: * Chief Complaints: * 1 . LT FT big toe nails removed, swollen; dropped a bottle a shampoo. * Medical History: * Medications: T aking Atorvastatin Calcium , Taking Losartan Potassium , Taking Baby Aspirin , Taking Omeprazole , Taking Doxycycline Monohydrate 100 MG Capsule 1 capsule Orally Once a day , Taking Ketoconazole 2 % Cream 1 application Externally Once a day apply pea size drop to the area daily Objective: * Vitals: Assessment: Plan: * Treatment: * Billing Information: * Visit Code: * Procedure Codes: * Electronic signature of Emigdio Roth DPM on 06/26/2025 at 07:57 PM EST Sign off status: Pending * Provider: Shankar Roth DPM Date: 08/12/2024 Generated for Rory cardona/Nissa/Pablo on: 08/27/2024 07:57 PM EST
--- OUTSIDE RECORDS SUMMARY | 2025-06-22 06:45 | XMS_ITS ---
Author Organization [facility] Address [address] [address] Care Team Providers Care Container Packer Operator Name Role Phone Jamil KEE, Eliu Primary Care Provider Unavaila Gus Jensen Unavailable [phone] REASON FOR VISIT LT hallux total avulsion Encounters Encounter Location Date Provider Diagnosis [facility] [address] [facility] [address] [place] [address] 06/22/2025 Gus Vincent Plan Of Treatment No Information Progress Notes * Amira KIMDOB: (69 yo F)Acc No.[id number]:06/22/2025 Follow Up Patient: Blanca NOWAKAmira Provider: Sumi Vincent DPM :1955 A ge:69 Y S ex:Female Date:06/22/2025 Address:[address] [place], [place] [phone] Pcp:Eliu Negron MD Subjective: * Chief Complaints: * 1 . LT hallux total avulsion. * Medical History: Objective: * Vitals: Assessment: Plan: * Treatment: * Billing Information: * Visit Code: * Procedure Codes: * Electronic signature of Ronny Vincent DPM on 06/26/2025 at 07:57 PM EST Sign off status: Pending * Provider: Sumi Vincent DPM Date: 08/23/2024 Generated for Printi ng/Fakailag/eTransmitting on: 08/27/2024 07:57 PM EST
--- OUTSIDE RECORDS SUMMARY | 2025-06-25 11:00 | XMS_ITS ---
Author Organization [facility] Address [address] [address] Care Team Providers Care Storeroom Keeper Name Role Phone Jamil KEE, Eliu Primary Care Provider Unavaila Gus Jensen Unavailable [phone] REASON FOR VISIT LT hallux total avulsion Encounters Encounter Location Date Provider Diagnosis [facility] 340 [facility] [address] [place] [address] 06/25/2025 Gus Vincent Plan Of Treatment No Information Progress Notes * Amira KIMDOB: (69 yo F)Acc No.[id number]:06/25/2025 Follow Up Patient: Blanca NOWAKAmira Provider: Sumi Vincent DPM :1955 A ge:69 Y S ex:Female Date:06/25/2025 Address:[address] [place], [place] [phone] Pcp:Eliu Negron MD Subjective: * Chief Complaints: * 1 . LT hallux total avulsion. * Medical History: Objective: * Vitals: Assessment: Plan: * Treatment: * Billing Information: * Visit Code: * Procedure Codes: * Electronic signature of Ronny Vincent DPM on 06/26/2025 at 07:53 PM EST Sign off status: Pending * Provider: Sumi Vincent DPM Date: 08/26/2024 Generated for Printi ng/Fakailag/eTransmitting on: 08/27/2024 07:53 PM EST
--- NOTE | ~2025-06-26 | XR_ITS ---
EXAMINATION: XR FOOT, LEFT CLINICAL INFORMATION: big toe pain. ostoemyelitits? Fracutre? COMPARISON: None available. TECHNIQUE: AP, lateral, and oblique views of the left foot. FINDINGS: Mild degenerative changes of the first MTP joint are evident with marginal osteophytes along the lateral joint line. No fractures are clear evidence of erosive changes are identified. XR/XR foot LT min 3V IMPRESSION: No definite erosions and no fracture. Mild first MTP joint osteoarthritis. Electronically signed by: Ramses Magana MD 06/26/2025 01:22 PM EST
[2025-06-26 13:01] VITALS: BP 156/70; PULSE 73; RESP 16; TEMP 36.9; O2SAT 98; BMI 24.6
--- NOTE | 2025-06-26 13:21 | ED_ITS ---
HPI - General Adult General Chief complaint: Skin/Abscess/Foreign Body Stated complaint: toe infection Time Seen by Provider: 06/26/25 15:19 Source: patient Mode of arrival: ambulatory Limitations: no limitations History of Present Illness ED Provider: Rashid Rao HPI narrative: 69 yold female presents to the left bit toe redness and pain for the past couple of weeks. Patient states has had pain for month, but the redness is new. patient states in the past having toenail removed due to recurrent ingorwn toe nails. patient states some chills Related Data Previous Rx's ?Medication ?Instructions ?Recorded acetaminophen 500 mg tablet 500 mg PO Q6H PRN pain or fever 01/28/21 (Tylenol Extra Strength) #20 tabs cyclobenzaprine 5 mg tablet 5 mg PO Q8H PRN pain (scal e score 01/28/21 7-10) 5 days #14 tabs lidocaine 5 % topical patch 1 patch topical DAILY PRN pain #30 01/28/21 (Lidoderm) ea naproxen 500 mg tablet 500 mg PO BID PRN pain 10 da ys #20 01/28/21 tabs ondansetron HCl 4 mg tablet 4 mg PO Q8H PRN nausea and 01/28/21 (Zofran) vomiting #10 tabs oxycodone 5 mg tablet 5 mg PO Q8H PRN pain, severe 3 01/28/21 days #9 tabs naproxen 500 mg tablet 500 mg PO BID PRN pain #14 t abs 06/26/25 sulfamethoxazole 800 1 tab PO Q12H 7 days #14 tab s 06/26/25 mg-trimethoprim 160 mg tablet (Bactrim DS) Allergies Allergy/AdvReac Type Severity Reaction Status Date / Time No Known Allergies Allergy Verified 06/26/25 13:05 Review of Systems 2 Review of Systems: left bit toe rendess Yes all other systems are reviewed and are negative [facility] Past Medical History Medical History HLD (hyperlipidemia) HTN (hypertension) Social History Social History Alcohol intake: never Patient Tobacco Use Status: Never used Tobacco Physical Exam ED Vital Signs: Vital Signs - 24 hr 06/26/25 13:01 Temperature 98.4 F Pulse Rate 73 Respiratory Rate 16 Blood Pressure 156/70 H Pulse Oximetry 98 Oxygen Delivery Method Room Air BMI result Body Mass Index 24.6 Const General: cooperative, healthy appearing, comfortable, no acute distress, well developed, alert, awake and Physically active [facility] Head: Yes normal to inspection, Yes No palpable skull fracture present, Yes normocephalic and Yes atraumatic Eyes General: appearance normal, both eyes and all related structures Neck Neck: Yes normal visual inspection, Yes full ROM, Yes no lymphadenopathy, Yes no meningeal signs, Yes trachea midline, Yes supple, No anterior neck swelling and No tender Chest Chest palpation & inspection: normal inspection of the chest and normal palpation of entire chest wall Resp Effort & Inspection: normal respiratory effort and able to speak in complete sentences Auscultation: clear to auscultation bilaterally Cardio Jugular venous distension: no JVD Heart sounds: S1 normal heart sound present and S2 normal heart sound present GI Inspection: Yes normal to inspection Palpation (GI): Soft to palpation, not firm, nontender, no guarding and not rigid General: Yes no CVA tenderness Back/Spine/Pelvis Back: no CVA tenderness and No back tenderness Skin General skin exam: no rashes or lesions noted, elasticity normal and turgor normal Neuro General: gait normal, tone normal, moves all extremities, no meningeal signs, no focal motor deficits, CN's II-XI intact bilaterally and normal sensation to monofilament Extrem General: Yes normal to inspection, Yes full ROM and Yes capillary refill normal Ankle/foot/toe images: 2 1. positive for tenderness on palpation. positive for erythema. negative for ecchymosis, open wounds ulcer, pus discharge, foul odor, deformities, or red streaks. rest of extremity is normal. motor, neuro, and vascular exam is itnactg Psych Appearance: grossly normal, well kempt and not disheveled Course Course Course Narrative: RME: 69-year-old female presents to the ED for left big toe pain with redness. Patient has had this pain for months with a redness for the past few weeks. Patient denies any calf pain, leg swelling, chest pain or shortness of breath. Medical Decision Making Medical Decision Making MDM Narrative: [age] year female presents to ED for left big toe redness with pain. Labs came back reassuring. X-ray negative for osteomyelitis. Not suspecting arterial occlusion, DVT, PE, necrotizing fascitits, compartment syndrome, lypmhandigits or any other life threatening eitology. Patient states allergic reaction to Keflex. Will discharge with bactrim. Differential Diagnosis Differential Diagnoses: The differential diagnosis associated with the presentation includes (Osteomyelitis, arthritis, cellulitis,) Admission/Observation Consideration of admission/observation: Escalation of care including admission/observation considered Lab Data MDM Lab Attestation statement: I reviewed the patient's lab results. 06/26/25 13:22 06/26/25 13:22 Labs: Lab Results 06/26/25 Range/Units 13:22 WBC 8.1 (4.8-10.8) X10*3/uL RBC 4.44 (4.20-5.50) X10*6/uL Hgb 13.5 (12.0-16.0) g/dl Hct 39.9 (37.0-47.0) % MCV 89.9 (80.0-98.0) fL MCH 30.4 (27.0-33.0) pg MCHC 33.8 (31.0-35.0) g/dl RDW 13.5 (11.0-16.0) % Plt Count 263 (160-400) X10*3/uL MPV 9.3 L (9.4-12.3) fL Immature Gran % (Auto) 0.2 (0.0-0.4) % Neut % (Auto) 67.6 (45-73) % Lymph % (Auto) 20.8 (20-40) % Knott % (Auto) 6.7 (2-11) % Eos % (Auto) 4.1 H (0-4) % Baso % (Auto) 0.6 (0-2) % Lymph # (Auto) 1.7 (1.2-4.9) X10*3/uL Knott # (Auto) 0.5 (0.1-1.2) X10*3/uL Eos # (Auto) 0.3 (0.0-0.4) X10*3/uL Baso # (Auto) 0.1 (0.0-0.2) X10*3/uL Abs Immat Gran (auto) 0.02 (0.00-0.03) X10*3/uL Absolute Neuts (auto) 5.5 (2.0-8.3) x10*3/uL Absolute Nucleated RBC 0.000 (0.0-0.012) X10*3/uL Nucleated RBC % (auto) 0.0 (0.0-0.2) /100WBC ESR 5 (1-30) MM/HR Sodium 143 (135-145) mmol/L Potassium 3.9 (3.3-5.1) mmol/L Chloride 106 (96-108) mmol/L Carbon Dioxide 29 (22-29) mmol/L Anion Gap 12 (12-20) BUN 15 (9-16) mg/dL Creatinine 0.84 (0.5-1.4) mg/dL Estim Creat Clear Calc 55.7 Estimated GFR > 60 Random Glucose 127 H (60-115) mg/dL Calcium 9.2 (8.4-10.2) mg/dL Total Bilirubin 2.7 H (0.0-1.0) mg/dL AST 24 (5-31) U/L ALT 24 (0-31) U/L Alkaline Phosphatase 61 (39-117) U/L C-Reactive Protein < 0.10 (< or = 0.50) mg/dL Total Protein 7.1 (6.5-8.0) g/dL Albumin 4.4 (3.5-5.0) g/dL Independent Interpretation I performed an independent interpretation of an: Plain X-Ray Radiology Impression Discussion of test interpretation with radiology: I have reviewed the radiologist's reading. Independent Historian Clinical information obtained from an independent historian. History obtained from or confirmed by: Other (patient) Prescription Management I considered prescription management with: Antibiotic Discharge Plan Discharge Clinical Impression: Cellulitis Patient Disposition: Home, Self-Care Instructions: Cellulitis (ED), Warm Compress or Soak (ED) Additional Instructions: Recommend follow-up with primary care provider, wound clinic, and tumbler tender. Return to the ED immediately for any redness, swelling, pus discharge, foul odor, fever, chills, bluish black discoloration, or any other concerning symptoms. Prescriptions: New sulfamethoxazole-trimethoprim [Bactrim DS] 800-160 mg tablet 1 tab PO Q12H 7 Days Qty: 14 0RF naproxen 500 mg tablet 500 mg PO BID PRN (Reason: pain) Qty: 14 0RF No Action ondansetron HCl [Zofran] 4 mg tablet 4 mg PO Q8H PRN (Reason: nausea and vomiting) Qty: 10 0RF cyclobenzaprine 5 mg tablet 5 mg PO Q8H PRN (Reason: pain (scale score 7-10)) 5 Days Qty: 14 0RF acetaminophen [Tylenol Extra Strength] 500 mg tablet 500 mg PO Q6H PRN (Reason: pain or fever) Qty: 20 0RF lidocaine [Lidoderm] 5 % adhesive patch,medicated 1 patch topical DAILY MDD remove after 12 hours PRN (Reason: pain) Qty: 30 0RF Rx Instructions: leave on most painful area for up to 12 hrs naproxen 500 mg tablet 500 mg PO BID PRN (Reason: pain) 10 Days Qty: 20 0RF oxycodone 5 mg tablet 5 mg PO Q8H PRN (Reason: pain, severe) 3 Days Qty: 9 0RF Referrals: [facility] [place] Podiatry [Provider Group, Podiatry] - 2 days Referral Note: Foot cellulitis great toe Clinical Impression: Cellulitis [facility] [place] Wound Care Management [Provider Group, Wound Care] - 2 days Referral Note: Chronic cellulitis Clinical Impression: Cellulitis Stand Alone Forms: Work/School Release Discharge Date/Time: 06/26/25 16:21 Print Language: Bengali
[2025-06-26 13:27] LABS: MANUAL DIFF FLAG NO
[2025-06-26 13:29] LABS: Hematocrit 39.9 % (37.0-47.0); Hemoglobin 13.5 g/dl (12.0-16.0); Imm Gran Abs Auto 0.02 X10*3/uL (0.00-0.03); Imm Gran Pct Auto 0.2 % (0.0-0.4); Lymphocytes Absolute Auto 1.7 X10*3/uL (1.2-4.9); Mean Corpuscular HGB Conc 33.8 g/dl (31.0-35.0); Mean Corpuscular Hemoglobin 30.4 pg (27.0-33.0); Mean Corpuscular Volume 89.9 fL (80.0-98.0); NRBC Abs Auto 0.000 X10*3/uL (0.0-0.012); NRBC Pct Auto 0.0 /100WBC (0.0-0.2); Platelet Count 263 X10*3/uL (160-400); Red Blood Count 4.44 X10*6/uL (4.20-5.50); White Blood Count 8.1 X10*3/uL (4.8-10.8)
[2025-06-26 13:51] LABS: Alanine Aminotransferase 24 U/L (0-31); Albumin Level 4.4 g/dL (3.5-5.0); Alkaline Phosphatase 61 U/L (39-117); Anion Gap 12 (12-20); Aspartate Amino Transferase 24 U/L (5-31); Blood Urea Nitrogen 15 mg/dL (9-16); Calcium 9.2 mg/dL (8.4-10.2); Carbon Dioxide 29 mmol/L (22-29); Chloride 106 mmol/L (96-108); Creatinine Clr Calc Pharmacy 55.7; Estimated Glomerular Filt Rate > 60; Potassium 3.9 mmol/L (3.3-5.1); Sodium 143 mmol/L (135-145); Total Protein 7.1 g/dL (6.5-8.0)
--- NOTE | 2025-06-26 16:20 | PC.NURSE ---
this patient was seen and discahrged by P[facility]. Recommendations for follow up with podiatry and wound care. Pt agreeable toDC care plan
--- OUTSIDE RECORDS SUMMARY | 2025-06-26 19:53 | XMS_ITS | Patient Health Record ---
Author Organization [facility] Address [address] [facility] [address] [place] [address] Care Team Providers Care Iron Bender Name Role Phone Eliu Negron MD Primary Care Provider Unavaila Gus Jensen Unavailable [phone] Steven Roth Unavailable [phone] Angela Gonzalez Unavailable [phone] Jonathan Armenta Unavailable [phone] Luis Haque Unavailable [phone] Allergies No Known Allergies Results Component Value Reference Range Notes X ray: Foot, left 3v Reviewed date:04/13/2025 04:22:09 PM Interpretation: Performing Lab: Notes/Report: X ray: Foot, left 3v Reviewed date:06/11/2025 10:44:02 PM Interpretation: Performing Lab: Notes/Report: Reason For Referral Reason highly suspect CRPS Diagnosis 1 Complex regional hill n syndrome type 1 of left lower extremity (G90.522) Referral Organization [facility] Referring Provider First Name Gus Referring Provider Last Name Carlton Referring Provider Speciality Podiatry - Surgical Chiropody Referred Provider Khang Ramirez Referred Provider Specialty Pain Managem ent General Notes Jennifer Robledo 02/2025 08:51:06 AM > spoke with Edita, referral received and pt will be called soonVenkat Jennifer 04/20/2025 10:09:45 AM > scheduled 04-19-25, notes received, assigned to Dr. Vincent, addressing Referral Priority Routine Reason Patient has mold cul ture positive for Curvularia Diagnosis 1 Mold exposure (Z77.1 20) Referral Organization [facility] Referring Provider First Name Gus Referring Provider Last Name Carlton Referring Provider Speciality Podiatry - Surgical Chiropody Referred Provider Syed Marley (Matilde) Referred Provider Specialty Infectious D isease General Notes SagarElvia donahue 05/17 07:55:15 AM > request sent, SagarElvia 05/24/2025 08:11:28 AM > request sentSagar Nicole 05/31/2025 08:55:09 AM > request sentSagar Nicole 05/31/2025 01:13:48 PM > notes received Referral Priority Routine Medications Medication SIG (Take, Route, Frequency, Duration) Notes Start Date End Date Status Atorvastatin Calcium Active Doxycycline Monohydrate 100 MG 1 capsule Orally Once a day; Duration: 10 days 04/04/2025 Active Omeprazole Active Baby Aspirin Active Losartan Potassium A ctive Ketoconazole 2 % 1 application Externally Once a day; Duration: 14 days apply pea size drop to the area daily 05/08/2025 Active Social History Tobacco Use: Social History Observation Description Date Details (start date - stop date) Former Smoker NA - NA Marital/ Living Question Answer Notes Status: Alcohol Question Answer Notes Usage Yes Smoking Question Answer Notes Are you a: former smoker Problems Problem Type SNOMED Code ICD Code Onset Dates Problem Status W/U Status Risk Notes Problem Spasm (69094828) Contracture of muscle, 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) Active confirmed Problem Walking disability (889749631) Difficulty in walking, not elsewhere classified (R26.2) Active confirmed Problem Ingrown nail (228921616) Ingrown nail (L60.0) Active confirmed Problem Arthritis of left ankle (25778270087340 06) Arthritis of left ankle (M19.072) Active confirmed Problem Complex regional pain syndrome type I of left lower limb (disorder) (15070946325662 1) Complex regional pain syndrome type 1 of left lower extremity (G90.522) Active confirmed Vital Signs Respiratory Rate 18 /min 06/11/2025 Blood pressure diastolic 74 mm Hg 06/11/2025 Height 62 in 06/11/2025 Blood pressure systolic 123 mm Hg 06/11/2025 Weight 136 lbs 06/11/2025 BMI 24.87 kg/m2 06/11/2025 Procedures Procedure Date Ordered Date Performed Result Body Sit e Physical Therapy 04/17/2025 05/03/2025 N/A Physical Therapy 04/25/2025 05/03/2025 N/A Encounters Encounter Location Date Provider Diagnosis [facility] [address] [address] [place] [address] 03/26/2025 Gus Vincent Ingrown nail L60.0 a nd Pain of left great toe M79.675 [facility] [address] [place] [address] 03/29/2025 Gus Vincent Ingrown nail L60.0 ; Onychomycosis B35.1 and Pain of left great toe M79.675 [facility] [address] [place] [address] 04/04/2025 Gus Vincent Ingrown nail L60.0 ; Onychomycosis B35.1 ; Pain of left great toe M79.675 and Cellulitis of left toe L03.032 [facility] [address] [place] [address] 04/12/2025 Gus Floresaleja Peroneal tendonitis of left lower extremity M76.72 and Ingrown nail L60.0 [facility] [address] [place] [address] 04/17/2025 Gus Vincent Ingrown nail L60.0 ; Complex regional pain syndrome type 1 of left lower extremity G90.522 and Arthritis of left ankle M19.072 [facility] [address] [place] [address] 04/25/2025 Gus Vincent Ingrown nail L60.0 ; Complex regional pain syndrome type 1 of left lower extremity G90.522 ; Arthritis of left ankle M19.072 and Ankle pain, left M25.572 [facility] [address] [place] [address] 05/01/2025 Gus Vincent Ingrown nail L60.0 ; Complex regional pain syndrome type 1 of left lower extremity G90.522 ; Arthritis of left ankle M19.072 ; Ankle pain, left M25.572 ; Cellulitis of left toe L03.032 and Bacterial infection A49.9 [facility] [address] [place] [address] 05/03/2025 Luis Andal Difficulty in walkin g, not elsewhere classified R26.2 ; Pain in left ankle and joints of left foot M25.572 ; Pain in left lower leg M79.662 ; Muscle weakness (generalized) M62.81 and Contracture of muscle, left lower leg M62.462 [facility] [address] [address] 05/08/2025 Luis Andal Difficulty in walkin g, not elsewhere classified R26.2 ; Pain in left ankle and joints of left foot M25.572 ; Pain in left lower leg M79.662 ; Muscle weakness (generalized) M62.81 and Contracture of muscle, left lower leg M62.462 [facility] [address] [address] 05/09/2025 Gus Vincent Ingrown nail L60.0 ; Complex regional pain syndrome type 1 of left lower extremity G90.522 ; Arthritis of left ankle M19.072 and Mold contact confirmed Z77.120 [facility] [address] [address] [place] [address] 05/10/2025 Luis Andal Difficulty in walkin g, not elsewhere classified R26.2 ; Pain in left ankle and joints of left foot M25.572 ; Pain in left lower leg M79.662 ; Muscle weakness (generalized) M62.81 and Contracture of muscle, left lower leg M62.462 [facility] [address] [address] 05/14/2025 Luis Andal Difficulty in walkin g, not elsewhere classified R26.2 ; Pain in left ankle and joints of left foot M25.572 ; Pain in left lower leg M79.662 ; Muscle weakness (generalized) M62.81 and Contracture of muscle, left lower leg M62.462 [facility] [address] [address] 05/16/2025 Luis Andal Difficulty in walkin g, not elsewhere classified R26.2 ; Pain in left ankle and joints of left foot M25.572 ; Pain in left lower leg M79.662 ; Muscle weakness (generalized) M62.81 and Contracture of muscle, left lower leg M62.462 [facility] [address] [facility] [address] [place] [address] 05/17/2025 Luis Andal Difficulty in walkin g, not elsewhere classified R26.2 ; Pain in left ankle and joints of left foot M25.572 ; Pain in left lower leg M79.662 ; Muscle weakness (generalized) M62.81 and Contracture of muscle, left lower leg M62.462 [facility] [address] [facility] [address] [place] [address] 05/25/2025 Luis Andal Difficulty in walkin g, not elsewhere classified R26.2 ; Pain in left ankle and joints of left foot M25.572 ; Pain in left lower leg M79.662 ; Muscle weakness (generalized) M62.81 and Contracture of muscle, left lower leg M62.462 [facility] [address] [facility] [address] [place] [address] 05/29/2025 Gus Wassell Ingrown nail L60.0 ; Complex regional pain syndrome type 1 of left lower extremity G90.522 ; Arthritis of left ankle M19.072 and Mold contact confirmed Z77.120 [facility] [address] [facility] [address] [place] [address] 05/30/2025 Gus Wassell Ingrown nail L60.0 ; Complex regional pain syndrome type 1 of left lower extremity G90.522 ; Arthritis of left ankle M19.072 and Mold contact confirmed Z77.120 [facility] [address] [facility] [address] [place] [address] 06/04/2025 Gus Wassell Ingrown nail L60.0 ; Complex regional pain syndrome type 1 of left lower extremity G90.522 ; Arthritis of left ankle M19.072 and Mold contact confirmed Z77.120 [facility] [address] [facility] [address] [place] [address] 06/11/2025 Gus Wassell Ingrown nail L60.0 ; Complex regional pain syndrome type 1 of left lower extremity G90.522 ; Arthritis of left ankle M19.072 ; Mold contact confirmed Z77.120 and Contusion of left great toe without damage to nail, initial encounter S90.112A [facility] [address] [facility] [place] [address] 04/30/2025 Gus Floresfausto [facility] [address] [facility] [place] [address] 04/25/2025 Gus Floresfausto [facility] [address] [facility] [place] [address] 04/26/2025 Gus Vincent [facility] [address] [facility] [place] [address] 05/01/2025 Gus Floresfausto [facility] [address] [facility] [place] [address] 05/07/2025 Gus [facility] [address] [facility] [place] [address] 05/08/2025 Gus Vincent Mold exposure Z77.12 0 [facility] [address] [place] [address] 05/14/2025 [facility] [address] [facility] [place] [address] 05/14/2025 Gus Vincent Mold contact confirm ed Z77.120 [facility] [address] [facility] [place] [address] 05/16/2025 [facility] [address] [place] [address] 05/21/2025 Luis [facility] [address] [place] [address] 05/21/2025 [facility] [address] [place] [address] 05/21/2025 [facility] [address] [place] [address] 05/21/2025 [facility] [address] [place] [address] 05/21/2025 Luis Andemanuel Assessments Encounter Date Diagnosis (ICD Code) Assessment Notes Treatment Notes Treatment Clinical Notes Section Notes 03/26/2025 Ingrown nail (ICD-10 - L60.0) Discussed P&A procedure with patient as nail grows back ingrown chronically. This would prevent future infection and pain in toenail, Advise soaks post op with dilute dish wash soap or epson salts then apply bandaid and betadine or neosporin 03/29/2025 Ingrown nail (ICD-10 - L60.0) Discussed proper nail care with patient in order to avoid infection, Discussed P&A procedure with patient if nail grows back ingrown. This would prevent future infection and pain in toenail 04/04/2025 Ingrown nail (ICD-10 - L60.0) Advised patient to continue soaks as instructed for 1 more week. Nail border curretted of fibrous plug. Patient advised about signs and symptoms of infection and to present sooner if any issues. Switch from epson salts and neosporin to betadine and dilute dish soap 04/12/2025 Peroneal tendonitis of left lower extremity (ICD-10 - M76.72) Patient has tendonitis. Recommend ice and anti-inflammator ies. MRI ordered to r/o any fractures or tears dispensed tall boot to rest the ankle given the pain was high enough she had trouble WB suspect possible occult fx [employer] Standards disclosure given to patient 04/12/2025 Ingrown nail (ICD-10 - L60.0) Advised patient to continue soaks as instructed for 1 more week. Nail border curretted of fibrous plug. Patient advised about signs and symptoms of infection and to present sooner if any issues. 04/17/2025 Ingrown nail (ICD-10 - L60.0) Advised patient to continue soaks as instructed for 1 more week. Nail border curretted of fibrous plug. Patient healing well no SOI ankle pain is not relatednor connected 04/04/2025 Onychomycosis (ICD-10 - B35.1) Patient advised to keep the feet clean, dry between the toes, change the socks or hose daily, and apply a topical antifungal medication to the affected nails as needed. 04/17/2025 Complex regional pain syndrome type 1 of left lower extremity (ICD-10 - G90.522) Complex regional pain syndrome (CRPS) is a form of chronic pain that usually affects an arm or a leg. CRPS typically develops after an injury, a surgery, a stroke or a heart attack. Diagnosis of CRPS is based on a physical exam and your medical history. Consider advanced testing to diagnostic purposes. Patient has been to emergency room now couple times has trouble sleeping at night pain with light touch slightly cooler skin temp in the area, I called Dr Nnuez with pain managment to try and get her in ths week we can try physical therapy if she tolerates it 04/25/2025 Ingrown nail (ICD-10 - L60.0) Advised patient to continue soaks as instructed for 1 more week. Nail border curretted of fibrous plug. Nail border granular finish Keflex soaks as needed applied neosporin an bandaid 04/25/2025 Complex regional pain syndrome type 1 of left lower extremity (ICD-10 - G90.522) Complex regional pain syndrome (CRPS) is a form of chronic pain that usually affects an arm or a leg. CRPS typically develops after an injury, a surgery, a stroke or a heart attack. Diagnosis of CRPS is based on a physical exam and your medical history. Consider advanced testing to diagnostic purposes. Patient has been to emergency room now couple times has trouble sleeping at night pain with light touch slightly cooler skin temp in the area, she has seen Dr Nunez with pain managment with back injection that gave no relief the Gabapentin is helping we can try physical therapy if she tolerates it 05/01/2025 Ingrown nail (ICD-10 - L60.0) Advised patient to continue soaks as instructed for 1 more week. Nail border curretted of fibrous plug. Nail border granular finish Keflex soaks as needed applied neosporin an bandaid 05/03/2025 Difficulty in walking, not elsewhere classified (ICD-10 - R26.2) 05/08/2025 Mold exposure (ICD-10 - Z77.120) 05/08/2025 Difficulty in walking, not elsewhere classified (ICD-10 - R26.2) 05/09/2025 Ingrown nail (ICD-10 - L60.0) Advised patient to continue soaks as instructed for 1 more week. Nail border curretted of fibrous plug. Patient healing well no SOI ankle pain is not relatednor connected 05/09/2025 Complex regional pain syndrome type 1 of left lower extremity (ICD-10 - G90.522) Complex regional pain syndrome (CRPS) is a form of chronic pain that usually affects an arm or a leg. CRPS typically develops after an injury, a surgery, a stroke or a heart attack. Diagnosis of CRPS is based on a physical exam and your medical history. Consider advanced testing to diagnostic purposes. Patient has been to emergency room now couple times has trouble sleeping at night pain with light touch slightly cooler skin temp in the area, I called Dr Nunez with pain managment to try and get her in ths week we can try physical therapy if she tolerates it 05/10/2025 Difficulty in walking, not elsewhere classified (ICD-10 - R26.2) 05/14/2025 Difficulty in walking, not elsewhere classified (ICD-10 - R26.2) 05/14/2025 Mold contact confirmed (ICD-10 - Z77.120) 05/16/2025 Difficulty in walking, not elsewhere classified (ICD-10 - R26.2) 05/17/2025 Difficulty in walking, not elsewhere classified (ICD-10 - R26.2) 05/25/2025 Difficulty in walking, not elsewhere classified (ICD-10 - R26.2) 05/29/2025 Ingrown nail (ICD-10 - L60.0) Left hallux discussed total removal as recommended by ID to help clear the fungal infection soak with dilute soap and apply topical antifungal 05/30/2025 Ingrown nail (ICD-10 - L60.0) Left hallux s/p total removal as recommended by ID to help clear the fungal infection soak with dilute soap and apply topical antifungal change twice daily procedure was yesterday cleaned the medial border of yellow fibrous plug 06/04/2025 Ingrown nail (ICD-10 - L60.0) Left hallux s/p total removal as recommended by ID to help clear the fungal infection soak with dilute soap and apply topical antifungal change twice daily procedure was yesterday cleaned the medial border of yellow fibrous plug 06/11/2025 Ingrown nail (ICD-10 - L60.0) Left hallux s/p total removal as recommended by ID to help clear the fungal infection 06/11/2025 Complex regional pain syndrome type 1 of left lower extremity (ICD-10 - G90.522) Complex regional pain syndrome (CRPS) is a form of chronic pain that usually affects an arm or a leg. CRPS typically develops after an injury, a surgery, a stroke or a heart attack. Improved with Gabapentin 06/11/2025 Arthritis of left ankle (ICD-10 - M19.072) MRI shows partial thickness degenerative arthrosis of the ankle, peroneal tendons were unremarkable mild achilles tendinosis 06/04/2025 Complex regional pain syndrome type 1 of left lower extremity (ICD-10 - G90.522) Complex regional pain syndrome (CRPS) is a form of chronic pain that usually affects an arm or a leg. CRPS typically develops after an injury, a surgery, a stroke or a heart attack. Resolved with Gabapentin 05/30/2025 Complex regional pain syndrome type 1 of left lower extremity (ICD-10 - G90.522) Complex regional pain syndrome (CRPS) is a form of chronic pain that usually affects an arm or a leg. CRPS typically develops after an injury, a surgery, a stroke or a heart attack. Improved with Gabapentin 05/29/2025 Complex regional pain syndrome type 1 of left lower extremity (ICD-10 - G90.522) Complex regional pain syndrome (CRPS) is a form of chronic pain that usually affects an arm or a leg. CRPS typically develops after an injury, a surgery, a stroke or a heart attack. Improved with Gabapentin 05/25/2025 Pain in left ankle and joints of left foot (ICD-10 - M25.572) 05/17/2025 Pain in left ankle and joints of left foot (ICD-10 - M25.572) 05/16/2025 Pain in left ankle and joints of left foot (ICD-10 - M25.572) 05/14/2025 Pain in left ankle and joints of left foot (ICD-10 - M25.572) 05/10/2025 Pain in left ankle and joints of left foot (ICD-10 - M25.572) 05/09/2025 Arthritis of left ankle (ICD-10 - M19.072) MRI shows partial thickness degenerative arthrosis of the ankle, peroneal tendons were unremarkable mild achilles tendinosis 05/08/2025 Pain in left ankle and joints of left foot (ICD-10 - M25.572) 05/01/2025 Arthritis of left ankle (ICD-10 - M19.072) MRI shows partial thickness degenerative arthrosis of the ankle, peroneal tendons were unremarkable mild achilles tendinosis 05/01/2025 Complex regional pain syndrome type 1 of left lower extremity (ICD-10 - G90.522) Complex regional pain syndrome (CRPS) is a form of chronic pain that usually affects an arm or a leg. CRPS typically develops after an injury, a surgery, a stroke or a heart attack. Diagnosis of CRPS is based on a physical exam and your medical history. Consider advanced testing to diagnostic purposes. Patient has been to emergency room now couple times has trouble sleeping at night pain with light touch slightly cooler skin temp in the area, she has seen Dr Nunez with pain managment with back injection that gave no relief the Gabapentin is helping we can try physical therapy if she tolerates it 05/03/2025 Pain in left ankle and joints of left foot (ICD-10 - M25.572) 03/26/2025 Pain of left great toe (ICD-10 - M79.675) 04/25/2025 Arthritis of left ankle (ICD-10 - M19.072) MRI shows partial thickness degenerative arthrosis of the ankle, peroneal tendons were unremarkable mild achilles tendinosis 04/04/2025 Pain of left great toe (ICD-10 - M79.675) 04/17/2025 Arthritis of left ankle (ICD-10 - M19.072) MRI shows partial thickness degenerative arthrosis of the ankle, peroneal tendons were unremarkable mild achilles tendinosis 03/29/2025 Onychomycosis (ICD-10 - B35.1) Patient advised to keep the feet clean, dry between the toes, change the socks or hose daily, and apply a topical antifungal medication to the affected nails as needed. 03/29/2025 Pain of left great toe (ICD-10 - M79.675) 04/04/2025 Cellulitis of left toe (ICD-10 - L03.032) Given mild redness advise antibiotics start if not better in a couple days 04/25/2025 Ankle pain, left (ICD-10 - M25.572) referral sent to PT 05/03/2025 Pain in left lower leg (ICD-10 - M79.662) 05/01/2025 Ankle pain, left (ICD-10 - M25.572) referral sent to PT 05/08/2025 Pain in left lower leg (ICD-10 - M79.662) 05/09/2025 Mold contact confirmed (ICD-10 - Z77.120) Awaiting culture results I discussed case with ID will keep with topical antifungal and consider oral medication base on culture speciation. More black mold was debrided off the area keep dry and change daily 05/10/2025 Pain in left lower leg (ICD-10 - M79.662) 05/14/2025 Pain in left lower leg (ICD-10 - M79.662) 05/16/2025 Pain in left lower leg (ICD-10 - M79.662) 05/17/2025 Pain in left lower leg (ICD-10 - M79.662) 05/25/2025 Pain in left lower leg (ICD-10 - M79.662) 05/29/2025 Arthritis of left ankle (ICD-10 - M19.072) MRI shows partial thickness degenerative arthrosis of the ankle, peroneal tendons were unremarkable mild achilles tendinosis 05/30/2025 Arthritis of left ankle (ICD-10 - M19.072) MRI shows partial thickness degenerative arthrosis of the ankle, peroneal tendons were unremarkable mild achilles tendinosis 06/04/2025 Arthritis of left ankle (ICD-10 - M19.072) MRI showed partial thickness degenerative arthrosis of the ankle, peroneal tendons were unremarkable mild achilles tendinosis improved with PT continue at home stretching 06/11/2025 Mold contact confirmed (ICD-10 - Z77.120) keep with topical antifungal and consider oral medication base on culture speciation. Decision was to remove the toenail to help fully treat all the mold that may be under the nail no signs of black mold at this time 06/04/2025 Mold contact confirmed (ICD-10 - Z77.120) keep with topical antifungal and betadine to the nail bed. Decision was to remove the toenail to help fully treat all the mold that may be under the nail no signs of black mold at this time 06/11/2025 Contusion of left great toe without damage to nail, initial encounter (ICD-10 - S90.112A) Patient dropped a shampoo bottle on the big toe no fractures or lacerations keep covered with betadine neosporin or anti fungal 05/30/2025 Mold contact confirmed (ICD-10 - Z77.120) keep with topical antifungal and consider oral medication base on culture speciation. Decision was to remove the toenail to help fully treat all the mold that may be under the nail no signs of black mold at this time 05/29/2025 Mold contact confirmed (ICD-10 - Z77.120) Awaiting culture results I discussed case with ID will keep with topical antifungal and consider oral medication base on culture speciation. Decision was to remove the toenail to help fully treat all the mold that may be under the nail at the request of ID which is reasonable a new nail will grow in over time 05/25/2025 Muscle weakness (generalized) (ICD-10 - M62.81) 05/17/2025 Muscle weakness (generalized) (ICD-10 - M62.81) 05/16/2025 Muscle weakness (generalized) (ICD-10 - M62.81) 05/14/2025 Muscle weakness (generalized) (ICD-10 - M62.81) 05/10/2025 Muscle weakness (generalized) (ICD-10 - M62.81) 05/08/2025 Muscle weakness (generalized) (ICD-10 - M62.81) 05/03/2025 Muscle weakness (generalized) (ICD-10 - M62.81) 05/01/2025 Cellulitis of left toe (ICD-10 - L03.032) Swab cultures taken for C&S will cover patient with broad spectrum antibiotics and follow up on cultures was on Keflex but developed a rash now on cipro 05/03/2025 Contracture of muscle, left lower leg (ICD-10 - M62.462) 05/01/2025 Bacterial infection (ICD-10 - A49.9) 05/08/2025 Contracture of muscle, left lower leg (ICD-10 - M62.462) 05/14/2025 Contracture of muscle, left lower leg (ICD-10 - M62.462) 05/10/2025 Contracture of muscle, left lower leg (ICD-10 - M62.462) 05/16/2025 Contracture of muscle, left lower leg (ICD-10 - M62.462) 05/17/2025 Contracture of muscle, left lower leg (ICD-10 - M62.462) 05/25/2025 Contracture of muscle, left lower leg (ICD-10 - M62.462) 04/17/2025 Other 04/25/2025 Other 05/01/2025 Other 05/09/2025 Other 05/29/2025 Other 05/30/2025 Other 06/04/2025 Other 06/11/2025 Other Plan Of Treatment Pending Test Test Name Order Date Physical Therapy 04/17/2025 Physical Therapy 04/25/2025 MRI left ankle without contrast 04/12/20 Insurance Providers Payer Name Payer Address Payer Phone Subscriber Number Group Number Insured Name Patient Relationship to Insured Coverage Start Date Coverage End Date Medicare Part B [address] [place] [address] [id number] Amira Ramos Self - patient is the insured A[employer] Supplement [address] [place] [phone] [id number] Amira Ramos Self - patient is the insured Medical (General) History Medical History History ICD Code Bronchitis Palpitations
--- OUTSIDE RECORDS SUMMARY | 2025-06-26 19:54 | XMS_ITS | Data Portability ---
Author Organization [facility] CASO_Admin ([facility]) Address [address] [place] [address] Care Team Providers Care Performing Arts Technicians Name Role Phone PRESSER, JACQUELYN Primary Care Provider ENRIQUE GORDON Osha Inspector [phone] CLINT LUGO Keyboard Instrument Tuner Assessment No assessment recorded. Plan of Treatment Reminders Order Date Submit Date Provider Last Modified By Organization Details Last Modified Time Details Appointments None record ed. Lab lipid panel, serum 2019 020 [facility], [address], [place], [address], 1 03:28:28 ALT (amparo ne aminot ransfe rase), serum or plasma 2019 020 [facility], [address], [address], [place], [address], 0 05:02:17 AST/SG OT (aspar hunter aminot ransfe rase), serum or plasma 2019 020 [facility], [address], [address], [place], [address], 0 05:02:17 Referral None record ed. Procedures None record ed. Surgeries None record ed. Imaging electr ocardi ogram 2021 022 [email or web address] Not available 2 09:39:27 electr ocardi ogram 2020 021 [email or web address] gu Not available 11:39:46 electr ocardi ogram 2019 020 acampbellrodri gu Not available 0 15:50:19 nuclea r stress test 2019 020 crubis Not available 0 14:35:17 Medication Orders atorva statin 20 mg tablet [address] [id number], [address] [address], [place], [address], 21:29:05 Patient TargetsNo targets recorded. Patient Instructions Encounter Date Encounter Id Patient Instructions Last Modified By Organization Details Last Modified Time 12/14/2018 [id number] chest pain: care instructions Not available 12/14/2018 13:19:47 palpitations: care instructions Not available 12/14/2018 13:19:47 elevated blood pressure: care instructions Not available 12/14/2018 13:19:47 11/09/2019 [id number] palpitations: care instructions Not available 11/09/2019 15:44:02 elevated blood pressure: care instructions Not available 11/09/2019 15:44:01 chest pain: care instructions Not available 11/09/2019 15:44:01 09/02/2020 [id number] chest pain: care instructions Not available 09/02/2020 11:37:04 palpitations: care instructions Not available 09/02/2020 11:37:05 elevated blood pressure: care instructions Not available 09/02/2020 11:37:04 03/24/2021 [id number] chest pain: care instructions [email or web address] Not available 03/24/2021 12:13:58 palpitations: care instructions [email or web address] Not available 03/24/2021 12:13:58 elevated blood pressure: care instructions sbierschenk Not available 03/24/2021 12:13:58 body mass index: care instructions [email or web address] Not available 03/24/2021 09:07:40 10/07/2021 [id number] chest pain: care instructions Not available 10/07/2021 09:35:40 palpitations: care instructions Not available 10/07/2021 09:35:40 elevated blood pressure: care instructions Not available 10/07/2021 09:35:40 body mass index: care instructions Not available 10/07/2021 09:35:40 Reason for Referral None Reported. Results Created Date Observation Date Name Description Value Unit Range Abnormal Flag Note LastModifiedBy Organization Detail LastModifiedTime 08/01/1908/02/2020 lipid panel , serum cholesterol, total 134 mg/dL <200 normal Not Available [facility] [address] [place], [address], 08/02/2020 03:28:28 08/01/1908/02/2020 lipid panel , serum HDL cholesterol 57 mg/dL > or = 50 normal Not Available [facility] [address], [place], [address], 08/02/2020 03:28:28 08/01/1908/02/2020 lipid panel , serum triglyceride s 53 mg/dL <150 normal Not Available [facility] [address] [place], [address], 08/02/2020 03:28:28 08/01/1908/02/2020 lipid panel , serum LDL-choleste rol 64 mg/dL _(higinio c) normal Refer ence range : <100 Deepika able range <100 mg/dL for prima ry preve ntion ; <70 mg/dL for patie nts with CHD or diabe tic patie nts with > or = 2 CHD risk facto rs. LDL-C is now calcu lated using the Ghada n-Hop kins moody quevedo n, which is a valid ated novel metho d provi ding reji r accur acy than the Fried kat equat ion in the estim ation of LDL-C . Ghada n SS et al. CHET. 2013; 310(1 1): 2061- 2068 (http ://ed ucati on.Qu Sofiya chasityQuad/Graphicss. com/f aq/FA Q164) Not Available [facility] [address], [place], [address], 08/02/2020 03:28:28 08/01/19 21 08/02/2020 lipid panel , serum chol/HDLC ratio 2.4 (calc ) <5.0 normal Not Available [facility] [address], [place], [address], 08/02/2020 03:28:28 08/01/1908/02/2020 lipid panel , serum non HDL cholesterol 77 mg/dL _(higinio c) <130 normal For patie nts with diabe bereket plus 1 major ASCVD risk facto r, treat ing to a non-H DL-C goal of <100 mg/dL (LDL- C of <70 mg/dL ) is consi shelbi flores n. Not Available [facility] [address], [place], [address], 08/02/2020 03:28:28 08/01/1908/02/2020 AST/S GOT (aspa rtate amino trans feras e), serum or plasm a AST 17 U/L 10-35 normal Not Available [facility] [address], [place], [address], 08/02/2020 03:28:28 08/01/1908/02/2020 ALT (paula ine amino trans feras e), serum or plasm a ALT 18 U/L 6-29 normal Not Available [facility] [address], [place], [address], 08/02/2020 03:28:29 10/02/19 22 10/02/2021 LIPID PANEL , STAND MALI cholesterol, total 174 mg/dL <200 normal Not Available [facility] [address], [place], [address], 10/02/2021 06:21:12 10/02/19 22 10/02/2021 LIPID PANEL , STAND MALI HDL cholesterol 58 mg/dL > or = 50 normal Not Available [facility] [address], [place], [address], 10/02/2021 06:21:12 10/02/19 22 10/02/2021 LIPID PANEL , STAND MALI triglyceride s 65 mg/dL <150 normal Not Available [facility] [address], [place], [address], 10/02/2021 06:21:12 10/02/19 22 10/02/2021 LIPID PANEL , STAND MALI LDL-choleste rol 101 mg/dL _(higinio c) high Refer ence range : <100 Deepika able range <100 mg/dL for prima ry preve ntion ; <70 mg/dL for patie nts with CHD or diabe tic patie nts with > or = 2 CHD risk facto rs. LDL-C is now calcu lated using the Ghada n-Hop kins calcu sae n, which is a valid ated novel daveo d kaushik mendoza r accur acy than the Fried kat equat ion in the estim ation of LDL-C . Ghada zuniga SS et al. CHET. 2013; 310(1 9): 2061- 2068 (http ://ed ucati on.Qu yamelDi chasityQuad/Graphicss. com/f aq/FA Q164) Not Available [facility] [address], [place], [address], 10/02/2021 06:21:12 10/02/19 22 10/02/2021 LIPID PANEL , STAND MALI chol/HDLC ratio 3.0 (calc ) <5.0 normal Not Available [facility] [address], [place], [address], 10/02/2021 06:21:12 10/02/19 22 10/02/2021 LIPID PANEL , STAND MALI non HDL cholesterol 116 mg/dL _(higinio c) <130 normal For patie nts with diabe bereket plus 1 major ASCVD risk facto r, treat ing to a non-H DL-C goal of <100 mg/dL (LDL- C of <70 mg/dL ) is consi dered a thera peuti c optio n. Not Available [facility] [address], [place], [address], 10/02/2021 06:21:12 10/02/19 22 10/02/2021 AST AST 16 U/L 10-35 normal Not Available [facility] [address], [place], [address], 10/02/2021 06:21:13 10/02/19 22 10/02/2021 ALT ALT 19 U/L 6-29 normal Not Available [facility] [address], [place], [address], 10/02/2021 06:21:13 12/24/19 19 12/20/2018 US, duple x, carot id arter y No observ ation record ed. [facility] [address], [place], [address], 12/23/2018 16:21:50 11/09/19 elect linusar diogr am No observ ation record ed. crubis Not Available 2019 15:04:13 01/09/20 20 11/20/2019 nucle ar stres s test No observ ation record ed. [email or web address] [facility]_[address], [place], [address], 03/07/2020 10:49:56 03/27/20 20 11/20/2019 nucle ar stres s test No observ ation record ed. [facility] [address], [place], [address], 03/27/2020 14:33:33 09/02/19 21 elect rocar diogr am No observ ation record ed. crubis Not Available 2020 11:07:11 10/08/19 22 elect rocar diogr am No observ ation record ed. adisilvester [facility] [address], [place], [address], 10/07/2021 09:03:10 10/08/19 22 elect rocar diogr am No observ ation record ed. adisilvester Not Available 09:03:05 Result Notes None recorded. Problems Name Problem SNOMED Code Status Onset Date Resolution Date Notes Provider Name and Address Organization Details Recorded Time Tachycardia 1796825 Active 2013 (Problem was migrated from [facility] on 7) Not Available [facility] [employer] 7 04:19:42 Hyperlipide radha 09300848 Active 2016 JORDI MARLOW [address] [facility] [address], [place], [address] , [facility] 7 14:46:53 Coronary arterioscle rosis 62207568 Active 2016 JORDI MARLOW [address], [facility] [address], [place], [address] , [facility] 7 15:37:32 Chest pain 43838617 Active 2017 Clint Lugo DO [address] [facility], [facility] [address], [place], [address] , [facility] 8 12:15:00 Palpitation s 08504190 Active 2017 Clint Luog DO [address] [facility], [address], [place], [address] , [facility] 12:17:03 Problem Notes Documentation Provider Name and Address Organization Details Recorded Time Consult Note : [address], [place] [address] Patient Name: AMIRA KIM : 1955 Gender: F ACCT:[id number] PT TYPE: O ADM-DSCH: 03/07/2022 - 03/08/2022 DICT DATE: 03/08/2022 09:52 Consult Note EMR ID:[id number] STATUS: F DICT PROV: CLINT LUGO DO Consultation Report Date/Time Note Created: 03/08/2022 09:52 Date/Time Patient Seen: 03/08/2022 09:52:32 EDT Consulting Service: Cardiology, Dr. Lugo Requesting Physician: Dr. Eason Reason for Consultation:Chest pain Date of Admission: 03/07/2022 Primary Care Provider: Dr. Cooper History of Present Illness: Ms. Kim 66-year-old female came to [facility] due to intermittent chest pain since 4 AM this a.m. She awoke with CP, thought it was gastro and took a tums and went back to bed, when she woke back up the CP reoccurred and she came to hospital. No recurrent symptoms after malox given.Was up walking when I arrived to do assessment, no symptoms. Cath 2017 with minimal disease, Nuclear 11/2019 negative. Past Medical History: History of SVT, bronchitis, coronary artery disease, dyslipidemia Past Surgical History: Hysterectomy Social History: Lives at home alone. Is a . Ambulates independently Denies alcohol nicotine or recreational drug use Family History: Denies any pertinent family history Medications (22) Active Scheduled: (6) aspirin 81 mg = 1 tab, Oral, Daily atorvastatin 40 mg = 1 tab, Oral, QAM docusate (Colace) 100 mg = 1 cap, Oral, BID pantoprazole (Protonix) 40 mg = 1 tab, Oral, Daily Before Dinner polyethylene glycol 3350 (MiraLax) 17 g = 1 packet(s), Oral, Daily sodium chloride (sodium chloride 0.9% flush) 3 mL, IV Push, Q8hr Consult Note EMR ID: [id number] PAGE: [address] [address] Patient Name: AMIRA KIM : 1955 Gender: Delisa ACCT:[id number] PT TYPE: O ADM-DSCH: 03/07/2022 - 03/08/2022 DICT DATE: 03/08/2022 09:52 Consult Note EMR ID:[id number] STATUS: F DICT PROV: CLINT LUGO DO Continuous: (0) PRN: (16) acetaminophen (Tylenol) 650 mg = 2 tab, Oral, H2C-wyq acetaminophen (Tylenol) 650 mg = 2 tab, Oral, X3F-lsr Al hydroxide/Mg hydroxide/simethicone (Maalox (with simethicone) Regular Strength) 30 mL, Oral, Q4hr albuterol (albuterol 2.5 mg/3 mL (0.083%) inhalation solution) 2.5 mg = 3 mL, Nebulizer, RT TID bisacodyl (Dulcolax Laxative) 5 mg = 1 tab, Oral, Daily bisacodyl (Dulcolax Laxative) 10 mg = 1 suppos, Rectal, Daily cloNIDine 0.1 mg = 1 tab, Oral, TID GI cocktail 35 mL, Oral, Q6hr haloperidol 2 mg = 0.4 mL, IV Push, Q6hr ketorolac (Toradol) 15 mg = 1 mL, IV, W3O-tzf morphine 1 mg = 0.5 mL, IV Push, One Time Unscheduled nitroGLYCerin (Nitrostat) 0.4 mg = 1 tab, Sublingual, Q5 Min-int ondansetron (Zofran) 4 mg = 2 mL, IV Push, Q6hr promethazine (Phenergan) 12.5 mg = 0.5 mL, IV Piggyback, Q6hr sodium chloride (sodium chloride 0.9% flush) 3 mL, IV Push, As Directed temazepam 7.5 mg = 1 cap, Oral, Q Bedtime Allergies (1) Active Reaction No Known Medication Allergies None Documented Review of Systems: CONST: [No fever, fatigue, or weight changes.] _ EYES: [No recent vision problems.] _ ENT: [No congestion, ear pain, or sore throat.] _ C/V: [+ chest pain, no palpitations, or edema.] _ RESP: [No cough, congestion, wheezing or shortness of breath.] _ GI: [No abdominal pain, nausea, vomiting, constipation, or diarrhea.] _ : [No incontinence or dysuria.] _ M/S: [No joint pain or swelling.] _ SKIN: [No rash.] _ NEURO: [No headache, focal numbness or weakness, dizziness, or seizures.] _ PSYCH: [No depression or anxiety.] _ ENDO: [No thyroid problems. No polyuria or polydipsia.] _ HEME: [No abnormal bruising or bleeding.] _ LYMPH: [No swollen glands.] _ IMMUN: [No itching or hives.] _ Physical Examination: Vital Signs: Last Charted: 24 Hr Minimum: 24 Hr Maximum: Consult Note EMR ID: [id number] PAGE: [address] [address] Patient Name: AMIRA KIM : 1955 Gender: F ACCT:[id number] PT TYPE: O ADM-DSCH: 03/07/2022 - 03/08/2022 DICT DATE: 03/08/2022 09:52 Consult Note EMR ID:[id number] STATUS: F DICT PROV: JAMARCLINT DO Temp F 97.9 (L) (03/08 08:00) 97.9 (L) (03/08 08:00) 98.4 (03/07 13:29) Heart Rate 65 (03/08 08:00) 56 (L) (03/08 00:11) 70 (03/07 16:19) Resp Rate 18 (03/07 17:24) 15 (03/07 13:29) 19 (03/07 16:19) SBP 143 (H) (03/08 08:00) 118 (03/07 16:19) 143 (H) (03/08 08:00) DBP 80 (03/08 08:00) 70 (03/07 16:19) 88 (03/08 05:45) SpO2 97 (03/08 08:00) 96 (03/07 20:36) 100 (03/07 13:29) Height 157 (03/07 16:48) GENERAL: [No acute distress, non-toxic appearing.] _ HEAD: [Normal with no signs of head trauma.] _ EYES: [PERRLA, EOMI, conjunctiva normal, no discharge.] _ ENT: [Hearing grossly intact, normal oropharynx.] _ NECK: [Supple, no tenderness, no lymphadenopathy, no masses, no thyromegaly, no bruits, no JVD.] _ LUNGS: [Clear breath sounds bilaterally. No wheezes, rales, or rhonchi.] _ HEART: [Regular rate and rhythm. Normal S1 and S2, without murmurs, rub or gallop] _ VASC: [No edema. Peripheral pulses normal and equal in all extremities.] _ ABD: [Bowel sounds normal, soft, nontender, no masses, no organomegaly.] _ : [Normal] _ LYMPH: [No lymphadenopathy noted.] _ EXT: [Normal range of motion, no joint swelling, no clubbing, no cyanosis.] _ SKIN: [No rashes or lesions.] _ NEURO: [Alert and oriented x3. Normal affect. Cranial nerves intact. No focal sensory or strength deficits. Reflexes symmetric.] _ Laboratory Data: Hematology Basic - Last 36 hours (25) Result Date/Time WBC 5.6 03/08 05: RBC 4.59 03/08 05:30 Hgb 13.7 03/08 05:30 Hct 40.8 03/08 05:30 MCV 88.9 03/08 05:30 MCH 29.8 03/08 05: MCHC 33.6 03/08 05:30 RDW-SD 41.9 03/08 05:30 RDW-CV 12.8 03/08 05:30 Platelet Count 214 03/08 05:30 MPV 9.8 03/08 05:30 NRBC Auto Abs 0.00 03/07 13:50 NRBC Auto Rel 0.0 03/07 13:50 Neutrophil Rel 57.3 03/07 13:50 Lymphocyte Rel 29.2 03/07 13:50 Monocyte Rel 9.6 03/07 13:50 Eosinophil Rel 3.0 03/07 13:50 Consult Note EMR ID: [id number] PAGE: [address] [address] Patient Name: AMIRA KIM : 1955 Gender: F ACCT:[id number] PT TYPE: O ADM-DSCH: 03/07/2022 - 03/08/2022 DICT DATE: 03/08/2022 09:52 Consult Note EMR ID:[id number] STATUS: F DICT PROV: CLINT LUGO DO Basophil Rel 0.7 03/07 13:50 Imm Gran Rel 0.2 03/07 13:50 Neutrophil Abs 2.45 03/07 13:50 Lymphocyte Abs 1.25 03/07 13:50 Monocyte Abs 0.41 03/07 13:50 Eosinophil Abs 0.13 03/07 13:50 Basophil Abs 0.03 03/07 13:50 Imm Gran Abs 0.01 03/07 13:50 Chemistry Comprehensive - Last 36 hours (22) Result Date/Time Sodium Lvl 141 03/08 05:30 Potassium Lvl 4.0 03/08 05:30 Chloride Lvl 105.9 03/08 05:30 CO2 28.0 03/08 05:30 Glucose Level 94 03/08 05:30 BUN 14 03/08 05:30 Creatinine Lvl 0.8 03/08 05:30 AGAP 7 (L) 03/08 05:30 BUN/Creat 18 03/08 05:30 Total Protein 6.9 03/08 05:30 Albumin Lvl 3.9 03/08 05:30 Calcium Lvl 9.1 03/08 05:30 Alk Phos 60.0 03/08 05:30 AST 19.0 03/08 05:30 ALT 15.0 03/08 05:30 Globulin 3 03/08 05:30 A/G Ratio 1.3 03/08 05:30 Calcium Corrctd 9 03/08 05:30 Hgb A1c 5.4 03/07 13:50 est Av Glu(eAG) 108.3 03/07 13:50 Bili Total 1.4 (H) 03/08 05:30 TSH 1.59 03/07 13:50 [ To insert other lab results say any or all of the following: 'Insert Blood Gases', 'Insert Cardiac Studies', 'Insert Chemistry Basic', 'Insert Coagulation Basic, 'Insert Glucose Point of Care', 'Insert Liver Enzymes', 'Insert Microbiology', 'Insert Urinalysis'] Radiology - Last 36 hours (1) XR Chest 1 View Portable (03/07 14:02) FINDINGS: Heart size is normal for technique. Interstitial markings are within normal limits. There is no acute infiltrate. No pneumothorax. Consult Note EMR ID: [id number] PAGE: [address] [address] Patient Name: AMIRA KIM : 1955 Gender: F ACCT:[id number] PT TYPE: O ADM-DSCH: 03/07/2022 - 03/08/2022 DICT DATE: 03/08/2022 09:52 Consult Note EMR ID:[id number] STATUS: F DICT PROV: CLINT LUGO DO IMPRESSION: No acute finding. Diagnostics - Non-Radiology - Last 36 hours (0) No results in past 36 hours Assessment: 1. Chest pain rule out IN 2. Dyslipidemia 3. Coronary artery disease 4. History of SVT Plan: -monitor on telemetry -EKG with NSR and NSSTW -Troponins are negative x3. -Will check Echocardiogram -If Echo favorable should be able to be d/cd with outpatient stress testing. Seen on rounds earlier this AM. I saw and examined Mrs. iKm and agree with the treatment plan as documented by JORDI Sadler. CP atypical and no objective evidence of cardiac etiology. Echo was reviewed with her. Nick for discharge as discussed and will plan outpatient stress echo. Thank you, Clint Lugo Electronically Signed On 03/08/22 10:38 EDT GREY MCINTYRE APRN Electronically Signed On 03/08/22 20:43 EDT CLINT LUGO DO Consult Note EMR ID: [id number] PAGE: 5 Grye Graham APRN [address] [facility],[address], [place], [address], [facility] 03/09/2022 09:16:05 Procedures Surgical History Date Name Laterality Status Provider Name and Address Organization Details Recorded Time Line And Frame Poler Surgery completed Marilyn Barriga [facility] [place] r[place] 03/24/2021 08:55:43 Imaging Results None recorded. Procedure Notes None recorded. Medical Equipment None Reported. Allergies Allergen ID Allergen Name Allergen Category Reaction Reaction Severity Criticality Documentation Date Start Date Code Code System Note Provider Name and Address Organization Details Recorded Time 719045 atorvasta tin medicatio n myalgias (muscle pain) Not available Not available 01/27/2021 25085 RxNorm at highe r dose of 40 mg daily Marilyn Barriga [facility] 09:45:06 048479 rosuvasta tin medicatio n myalgias (muscle pain) Not available Not available 01/27/2021 64269 2 RxNorm Marilyn Barriga [facility] 13:35:11 756410 cat dander environme nt Not available Not available Not available 03/24/2021 Mrailyn Barriga [facility] 1 08:55:40 844545 POLLEN EXTRACTS environme nt,medica tion Not available Not available Not available 03/24/2021 60361 6 RxNorm Marilyn Barriga [facility] 1 08:55:40 361524 mold extract environme nt Not available Not available Not available 03/24/2021 43218 8 RxNorm Marilyn Barriga [facility] 1 08:55:40 Medications Name Sig Start Date Stop Date Status Note LastModified by Organization Details LastModified Time cyclobenz aprine 10 mg tablet 04/19 completed Not Available Not Available Not Available amoxicill in 500 mg capsule TAKE 1 CAPSULE BY MOUTH EVERY 8 HOURS UNTIL FINISHED active Not Available Not Available No t Available atorvasta tin 40 mg tablet Take 0.5 tablets every day by oral route. 03/24 completed Not Available Not Available Not Available prednison e 10 mg tablet TAKE 6 TABLETS BY MOUTH ON DAY 1, THEN DECREASE BY 1 TABLET DAILY UNTIL FINISHED 08/08 completed Not Available Not Available Not Available atorvasta tin 20 mg tablet TAKE ONE TABLET BY MOUTH ONE TIME DAILY active Not Available Not Available No t Available ipratropi um 0.5 mg-albute rol 3 mg (2.5 mg base)/3 mL nebulizat ion soln INHALE ONE VIAL VIA NEBULIZE R EVERY 12 HOURS NEEDED FOR COUGH active Not Available Not Available No t Available ketoconaz ole 2 % shampoo as dir 11/08 completed Not Available Not Available Not Available Digitek 125 mcg (0.125 mg) tablet 04/19 completed Not Available Not Available Not Available atorvasta tin 10 mg tablet Take 1 tablet every day by oral route. 03/24 completed pt reports she has been using up the 40 mg tablet by taking 1/2 daily, is having some calf issues with the 20 mg daily Not Available Not Available Not Available azithromy lilo 250 mg tablet TAKE TWO TABLETS BY MOUTH ON DAY 1, THEN TAKE ONE TABLET ONE TIME DAILY ON DAYS 2-5 active Not Available Not Available No t Available ibuprofen 800 mg tablet TAKE ONE TABLET BY MOUTH THREE TIMES A DAY ( DO NOT TAKE MORE THAN 5 CONSECUT RUFINA DAYS IN A ROW ) 08/08 completed Not Available Not Available Not Available fluconazo le 150 mg tablet 04/19 completed Not Available Not Available Not Available clarithro mycin 500 mg tablet 12/09 completed Not Available Not Available Not Available ondansetr on HCl 8 mg tablet TAKE ONE TABLET BY MOUTH THREE TIMES A DAY NEEDED active Not Available Not Available No t Available meloxicam 15 mg tablet TAKE ONE TABLET BY MOUTH ONE TIME DAILY 03/24 completed Not Available Not Available Not Available prednison e 20 mg tablet TAKE THREE TABLETS BY MOUTH ONE TIME DAILY FOR 3 DAYS THEN TAKE TWO TABLETS BY MOUTH ONE TIME DAILY FOR 3 DAYS THEN TAKE ONE TABLET BY MOUTH active Not Available Not Available No t Available clobetaso l 0.05 % topical cream APPLY CREAM TO SCALP TOPICALL Y TWICE DAILY FOR 14 DAYS active Not Available Not Available No t Available clindamyc in HCl 150 mg capsule 08/08 completed Not Available Not Available Not Available metronida zole 500 mg tablet TAKE ONE TABLET BY MOUTH THREE TIMES A DAY active Not Available Not Available No t Available sulfameth oxazole 800 mg-trimet hoprim 160 mg tablet 04/19 completed Not Available Not Available Not Available omeprazol e 40 mg capsule,d elayed release TAKE ONE CAPSULE BY MOUTH ONE TIME DAILY 30 MINUTES BEFORE MORNING MEAL active Not Available Not Available No t Available triamcino lone acetonide 0.1 % topical cream 08/08 completed Not Available Not Available Not Available amoxicill in 875 mg tablet TAKE ONE TABLET BY MOUTH TWICE A DAY FOR 10 DAYS 10/07 completed Not Available Not Available Not Available Mapap (acetamin ophen) 500 mg capsule TAKE 1 TABLET BY MOUTH EVERY 6 HOURS NEEDED FOR FEVER OR PAIN 03/20 completed Not Available Not Available Not Available benzonata te 100 mg capsule 1 CAPSULE 3 TIMES PER DAY NEEDED FOR COUGH active Not Available Not Available No t Available triamcino lone acetonide 0.1 % topical ointment APPLY ONE APPLICAT ION ON THE SKIN TWO TIMES A DAY; APPLY TO ARMS NEEDED FOR ITCH 10/07 completed Not Available Not Available Not Available clobetaso l 0.05 % topical foam as dir 11/08 completed Not Available Not Available Not Available omeprazol e 20 mg capsule,d elayed release TAKE ONE CAPSULE BY MOUTH EVERY MORNING active Not Available Not Available No t Available diltiazem CD 120 mg capsule,e xtended release 24 hr 04/19 completed Not Available Not Available Not Available monteluka st 10 mg tablet TAKE ONE TABLET BY MOUTH EVERY MORNING active Not Available Not Available No t Available codeine 10 mg-guaife nesin 100 mg/5 mL oral liquid TAKE 10 ML BY MOUTH EVERY FOUR HOURS NEEDED FOR COUGH active Not Available Not Available No t Available clobetaso l 0.05 % topical ointment APPLY THIN LAYER TO AFFECTED AREA ONCE DAILY FOR 1 WEEK, THEN NEEDED FOR ITCHING active Not Available Not Available No t Available epinephri ne 0.3 mg/0.3 mL injection , auto-inje ctor 04/19 completed Not Available Not Available Not Available prednison e 5 mg tablets in a dose pack Take by oral route for 6 days. 12/14 completed Not Available Not Available Not Available ibuprofen 600 mg tablet TAKE 1 TABLET BY MOUTH FOUR TIMES A DAY WITH MEALS NEEDED 03/20 completed Not Available Not Available Not Available levofloxa lilo 500 mg tablet TAKE ONE TABLET BY MOUTH EVERY 24 HOURS FOR 7 DAYS active Not Available Not Available No t Available estradiol 0.01% (0.1 mg/gram) vaginal cream INSERT 0.5 GRAMS VAGINALL Y THREE TIMES WEEKLY DIRECTED active Not Available Not Available No t Available levofloxa lilo 750 mg tablet TAKE ONE TABLET BY MOUTH ONE TIME DAILY FOR 5 DAYS 10/07 completed Not Available Not Available Not Available methylpre dnisolone 4 mg tablets in a dose pack TAKE DIRECTED ON PACKAGE active Not Available Not Available No t Available albuterol sulfate HFA 90 mcg/actua tion aerosol inhaler INHALE ONE PUFF BY MOUTH EVERY 6 HOURS NEEDED FOR WHEEZING active Not Available Not Available No t Available clobetaso l 0.05 % scalp solution 10/07 completed Not Available Not Available Not Available fluticaso ne propionat e 50 mcg/actua tion nasal spray,antoine pension USE TWO SPRAYS IN EACH NOSTRIL ONE TIME DAILY active Not Available Not Available No t Available doxycycli ne hyclate 100 mg tablet 11/08 completed Not Available Not Available Not Available naproxen 500 mg tablet TAKE 1 TABLET BY MOUTH TWICE A DAY FOR 10 DAYS NEEDED FOR PAIN 03/20 completed Not Available Not Available Not Available amoxicill in 875 mg-potass ium clavulana te 125 mg tablet 11/08 completed Not Available Not Available Not Available amoxicill in 500 mg-potass ium clavulana te 125 mg tablet 08/08 completed Not Available Not Available Not Available neomycin- polymyxin -hydrocor t 3.5 mg-10,000 unit/mL-1 % ear drops,antoine p 04/19 completed Not Available Not Available Not Available Adult Low Dose Aspirin 81 mg tablet,de layed release Take 1 tablet every day by oral route. 10/07 completed Not Available Not Available Not Available azithromy lilo 500 mg tablet TAKE 1 TABLET BY MOUTH DAILY FOR 3 DAYS 10/07 completed Not Available Not Available Not Available cyclobenz aprine 5 mg tablet TAKE 1 TABLET BY MOUTH EVERY 8 HOURS NEEDED FOR PAIN X5 DAYS 03/20 completed Not Available Not Available Not Available rosuvasta tin 10 mg tablet TAKE ONE TABLET BY MOUTH ONE TIME DAILY 03/24 completed last filled was the atorvast atin Not Available Not Available Not Available metoprolo l tartrate 25 mg tablet 04/19 completed Not Available Not Available Not Available chlorhexi dine gluconate 0.12 % mouthwash PLEASE SEE ATTACHED FOR DETAILED DIRECTIO NS 03/20 completed Not Available Not Available Not Available sodium fluoride 1.1 % dental paste USE DIRECTED 10/07 completed Not Available Not Available Not Available diclofena c 1 % topical gel 09/02 completed Not Available Not Available Not Available azelastin e 205.5 mcg (0.15 %) nasal spray SPRAY ONE SPRAY IN EACH NOSTRIL ONE TIME DAILY PREFERRE D IN THE EVENING TIME active Not Available Not Available No t Available Suprep Bowel Prep Kit 17.5 gram-3.13 gram-1.6 gram oral solution TAKE 177 MLS BY MOUTH TWO TIMES A DAY 09/02 completed Not Available Not Available Not Available Sorilux 0.005 % topical foam 04/19 completed Not Available Not Available Not Available lancets 28 gauge 04/19 completed Not Available Not Available Not Available Enstilar 0.005 %-0.064 % topical foam as dir 11/08 completed Not Available Not Available Not Available Yuvafem 10 mcg vaginal tablet 12/09 completed Not Available Not Available Not Available Imvexxy Maintenan ce Pack 10 mcg vaginal insert Insert by vaginal route for 28 days. 12/14 completed Not Available Not Available Not Available Vitals Date Recorded Systolic And Diastolic Systolic And Diastolic Provider Name and Address Organization Details Last Updated DateTime 09/02/2020 144/76 mm[Hg] 136/70 mm[Hg] Clint Lugo DO [address] [place], [address] 09/02/2020 11:28:39 Date Recorded Body height Body mass index (BMI) Body weight Heart rate Systolic And Diastolic Provider Name and Address Organization Details Last Updated DateTime 09/02/2020 157.48 cm 24.3 kg/m2 18664.79 g 60 /min 136/80 mm[Hg] Marilyn Barriga [facility] 09/02/2020 11:02:43 Date Recorded Systolic And Diastolic Provider Name and Address Organization Details Last Updated DateTime 10/07/2021 134/68 mm[Hg] Clint Lugo DO [address] [facility],[address], [place], [address] 10/07/2021 09:32:10 Date Recorded Body height Body mass index (BMI) Body weight Heart rate Systolic And Diastolic Provider Name and Address Organization Details Last Updated DateTime 10/07/2021 157.48 cm 26 kg/m2 01171.12 g 67 /min 142/78 mm[Hg] Destini Disilvester [facility] 08:59:23 Date Recorded Systolic And Diastolic Systolic And Diastolic Provider Name and Address Organization Details Last Updated DateTime 11/09/2019 144/80 mm[Hg] 138/70 mm[Hg] Clint Lugo DO [address], [place], [address] [place] [address] 11/09/2019 15:35:41 Date Recorded Body height Body mass index (BMI) Body weight Heart rate Systolic And Diastolic Provider Name and Address Organization Details Last Updated DateTime 11/09/2019 157.48 cm 25.8 kg/m2 50321.52 g 64 /min 134/80 mm[Hg] Marilyn Rubis [facility] 11/09/2019 15:00:33 Date Recorded Systolic And Diastolic Systolic And Diastolic Provider Name and Address Organization Details Last Updated DateTime 12/14/2018 146/78 mm[Hg] 138/80 mm[Hg] Clint Lugo DO [address] [id number] 12/14/2018 13:14:36 Date Recorded Body height Body mass index (BMI) Body weight Heart rate Systolic And Diastolic Provider Name and Address Organization Details Last Updated DateTime 12/14/2018 157.48 cm 25.6 kg/m2 09035.93 g 69 /min 140/90 mm[Hg] Matilda Patel [facility] 12/14/2018 12:49:52 Date Recorded Body height Body mass index (BMI) Body weight Heart rate Systolic And Diastolic Provider Name and Address Organization Details Last Updated DateTime 03/24/2021 157.48 cm 25.6 kg/m2 77622.93 g 66 /min 120/70 mm[Hg] Marilyn Barriga [facility] 03/24/2021 09:01:56 Social History Question Answer Notes LastModified by Organizat ion Details LastModified Time Tobacco Smoking Status Former Smoker Laurita Castillo shakeel, [facility] 04/19/2017 14:06:09 Do You Have An Advance Directive? Yes Information not available 03/24/2021 Are You Blind Or Do You Have Difficulty Seeing? No Information not available 03/24/2021 Is Blood Transfusion Acceptable In An Emergency? Yes Information not available 03/24/2021 What Is Your Level Of Caffeine Consumption? Occasional Information not available 03/24/2021 How Much Tobacco Do You Chew? None [email or web address] Information not available 12/14/2018 Are You Deaf Or Do You Have Serious Difficulty Hearing? No Information not available 03/24/2021 What Type Of Diet Are You Following? REGULAR Information not available 03/24/2021 When Did You Quit Smoking? 16+yearssincel [email or web address] Information not available 10/07/2021 Which Of Your Hands Is Dominant? Right Information not available 03/24/2021 What Was The Date Of Your Most Recent Tobacco Screening? 10/07/2021 Information not available 10/07/2021 Do You Have Any Pets? No Information not available 03/24/2021 What Is Your Relationship Status? Information not available 03/24/2021 How Much Tobacco Do You Smoke? No 1 Ppd Information not available 10/07/2021 How Many Years Have You Smoked Tobacco? 4 Information not available 04/19/2017 How Many Days In The Past Year Have You Consumed 4 Or More Drinks? 0 Information no t available 10/07/2021 Sex: Unknown Functional Status Question Answer Note LastModified by Organizat ion Details LastModified Time Do you use any illicit or recreational drugs? No Information not available 10/07/2021 Do you or have you ever used any other forms of tobacco or nicotine? No Information not available 10/07/2021 What is your level of alcohol consumption? Occasional Information not available 03/24/2021 Do you or have you ever used smokeless tobacco? Never used smokeless tobacco Information not available 11/09/2019 Are you currently employed? No Information not available 10/07/2021 Are you able to care for yourself independently? Yes Information not available 03/24/2021 Do you or have you ever used e-cigarettes or vape? Never used electronic cigarettes Information not available 11/09/2019 What is your exercise level? Occasional Information not available 03/24/2021 Mental Status Question Answer Note LastModified by Organization D etails LastModified Time Do you feel stressed (tense, restless, nervous, or anxious, or unable to sleep at night)? [id number] Information not available 03/24/2021 Family History Relationship Description Onset Age of this Age Resolved Age Notes LastModified by Organization Details LastModified Time Mother Pulmonary embolism x 2 [email or web address] Not available 2017 11:48:38 Mother Heart disease 80 [email or web address] Not available 2020 10:50:01 Mother Hypertensive disorder 55 crubis Not available 2020 10:50:01 Notes:NO HX OF PREMATURE CAD Medical History Condition Response High Cholesterol (Hyperlipidemia) Y Gynecological HistoryNo gynecological history recorded. Obstetrics History GPAL:G 0 P 0 0 0 0 Past Encounters Encounter ID Performer Location Encounter Start Date Encounter Closed Date Diagnosis/Indication Diagnosis SNOMED-CT Code Diagnosis ICD10 Code Diagnosis IMO Codes Diagnosis Note [id number] JORDI MARLOW [facility] [address] [place] [address] 04/19/2017 13:50:51 04/19/2017 14:54:46 Hyperlipidemia 27118434 E78.2 Last lipid check was 03/24. Total cholestero l 158, HDL 63, triglyceri macey 77 and LDL 80. Diet and exercise regimen for RF modificati ons Recheck lipid and liver profile in 6 to 8 weeks Coronary arteriosclerosis 62374841 I25.10 -Cath report from 04/12/2017 shows 25% pro/mid and 30% mild lad. 20% ostial first diagonal. 25% distal lesion in a dominant RCA and patent left main. -EF 55% Continue on ASA 81mg po daily and increase atorvastat in to 40m gpo daily Diet and exercise for RF modificati on Low heat to right groin 1 to 2 a day no more than 20 minutes at a time [id number] Clint Lugo, DO [facility] [address] [place] [address] 12/09/2017 11:35:33 12/09/2017 13:04:22 Coronary arteriosclerosis 91087044 I25.10 Cath Apr 2017 with 25% prox/mid LAD, 30% mid LAD, 20% ostial D1 and 25% distal RCA. EF 55% EKG 12/09/17 SB 57 bpm with Rare PVC's Hyperlipidemia 09912295 E78.2 Lipids Aug 2017 Chol 145, LDL 62, HDL 69, Trig 65 She reports that she might have been on 80 mg (sent by pharmacy) at the time of that test. Will recheck Lipids to make sure that dose is optimized. [id number] Clint Lugo, DO [facility] [address] [place] [address] 05/04/2018 11:09:19 05/04/2018 12:27:05 Coronary arteriosclerosis 29413259 I25.10 Cath Apr 2017 with 25% prox/mid LAD, 30% mid LAD, 20% ostial D1 and 25% distal RCA. EF 55% EKG 12/09/17 SB 57 bpm with Rare PVC's EKG 05/04/18 NSR with mild NSST Hyperlipidemia 34013630 E78.2 Lipids Aug 2017 Chol 145, LDL 62, HDL 69, Trig 65 She reports that she might have been on 80 mg (sent by pharmacy) at the time of that test. Lipids December 2017 Chol 123, LDL 58, HDL 55, Trig 49 (likely on 80 mg Lipitor at that time) Continues on Lipitor without adverse symptoms. Chest pain 65914785 R07. 2 Chest pain is atypical based on descriptio n and not likely to be cardiac in origin. She feels considerab ly better with activity. Suspect recent cold and cough responsibl e. Will check CXR in view of persistent cough Palpitations 21526115 R0 0.2 These have not been recently noted. [id number] Clint Lugo, DO [facility] [address] [place] [address] 12/14/2018 12:06:49 12/14/2018 13:29:49 Coronary arteriosclerosis 00310566 I25.10 Cath Apr 2017 with 25% prox/mid LAD, 30% mid LAD, 20% ostial D1 and 25% distal RCA. EF 55% EKG 12/09/17 SB 57 bpm with Rare PVC's EKG 05/04/18 NSR with mild NSST Hyperlipidemia 57525909 E78.2 Lipids Aug 2017 Chol 145, LDL 62, HDL 69, Trig 65 She reports that she might have been on 80 mg (sent by pharmacy) at the time of that test. Lipids December 2017 Chol 123, LDL 58, HDL 55, Trig 49 (likely on 80 mg Lipitor at that time) Lipids November 2018 Chol 143, LDL 58, HDL 67, Trig 92 (non-fasti ng) Continues on Lipitor without adverse symptoms. Chest pain 18198141 R07. 2 No recurrence of chest pain. Chest pain was atypical based on descriptio n and not likely to have been cardiac in origin. She feels considerab ly better with activity. Suspect cold and cough responsibl e. CXR Apr 2018 showed clear lungs Palpitations 83797625 R0 0.2 These have not been recently noted. Elevated blood-pressure reading without diagnosis of hypertension 362385639 R03.0 Prior BP's had been good Mildly elevated December 2018 May be due to significan t work related stress She's retiring at the end of December 2018, expecting to watch diet, exercise. No need to add antihypert ensive medication at present. She'll check BP outside of office and notify if elevated BP check in 6 months. [id number] Clint Lugo, [address] [facility],[address] [place] [address] 11/09/2019 14:45:30 11/09/2019 15:50:18 Coronary arteriosclerosis 70493017 I25.10 Cath Apr 2017 with 25% prox/mid LAD, 30% mid LAD, 20% ostial D1 and 25% distal RCA. EF 55% EKG 12/09/17 SB 57 bpm with Rare PVC's EKG 05/04/18 NSR with mild NSST EKG 11/09/19 SB 55 bpm with mild NSST Will check Ex Cardiolite to evaluate for ischemia in view of known CAD and atypical chest pain. Recommende d that she resume EC ASA 81 Daily Hyperlipidemia 84487887 E78.2 Lipids Aug 2017 Chol 145, LDL 62, HDL 69, Trig 65 She reports that she might have been on 80 mg (sent by pharmacy) at the time of that test. Lipids December 2017 Chol 123, LDL 58, HDL 55, Trig 49 (likely on 80 mg Lipitor at that time) Lipids November 2018 Chol 143, LDL 58, HDL 67, Trig 92 (non-fasti ng) Lipids Jul 2019 Chol 157, LDL 82, HDL 62, Trig 61 (thinks she's on 20 mg Lipitor daily) Continues on Lipitor without adverse symptoms (she apparently has been on 20 mg QD). Rationale for more aggressive lipid lowering was discussed with her (documente d CAD). Will increase Lipitor to 40 mg QD Patient was asked to notify me if any adverse symptoms with the medication change(s). L&L 2 months Chest pain 23437747 R07. 2 Chest pain is atypical based on descriptio n. She feels considerab ly better with activity. CXR Apr 2018 showed clear lungs Palpitations 48419307 R0 0.2 These have not been recently noted. Elevated blood-pressure reading without diagnosis of hypertension 457170911 R03.0 BP satisfacto ry, continue to monitor Mixed hyperlipidemia 267 060472 E78.2 test Medication monitoring 39 3387446 Z51.81 lipid management f/u labs. Long-term drug therapy 497097941 Z79.899 lipid management f/u labs [id number] Clint Lugo, DO [facility] [address] [place] [address] 09/02/2020 10:24:58 09/02/2020 11:39:46 Coronary arteriosclerosis 98707728 I25.10 Cath Apr 2017 with 25% prox/mid LAD, 30% mid LAD, 20% ostial D1 and 25% distal RCA. EF 55% EKG 12/09/17 SB 57 bpm with Rare PVC's EKG 05/04/18 NSR with mild NSST EKG 11/09/19 SB 55 bpm with mild NSST EKG 09/02/20 NSR with no significan t ST changes. Ex Cardiolite November 2019 was normal with EF. 74% Recommende d that she resume EC ASA 81 Daily Hyperlipidemia 86084849 E78.2 Lipids Aug 2017 Chol 145, LDL 62, HDL 69, Trig 65 She reports that she might have been on 80 mg (sent by pharmacy) at the time of that test. Lipids December 2017 Chol 123, LDL 58, HDL 55, Trig 49 (likely on 80 mg Lipitor at that time) Lipids November 2018 Chol 143, LDL 58, HDL 67, Trig 92 (non-fasti ng) Lipids Jul 2019 Chol 157, LDL 82, HDL 62, Trig 61 (thinks she's on 20 mg Lipitor daily) Had been on Lipitor without adverse symptoms (she apparently has been on 20 mg QD). Rationale for more aggressive lipid lowering was discussed with her (documente d CAD). Increased Lipitor to 40 mg QD Lipids Jul 2020 Chol 134, LDL 64, HDL 57, Trig 53 Because of bilateral calf pains (went to ER 2 separate occasions, once for each leg) will stop Statin to evaluate for possible adverse drug effect. She'll call in 1 month with an update on leg symptoms Will consider Crestor 20 mg or Lipitor at lower dose, ie. 20 mg daily. Chest pain 69525344 R07. 2 Chest pain was atypical based on descriptio n and has resolved. She feels considerab ly better with activity. CXR Apr 2018 showed clear lungs Palpitations 95108745 R0 0.2 These have not been recently noted. Elevated blood-pressure reading without diagnosis of hypertension 775723216 R03.0 BP is slightly higher Recent use of Ibuprofen may be a factor She is planning on losing additional weight. Will hold off on adding antihypert ensive medication and consider this if BP's high at f/u. [id number] Clint Lugo, [facility] [address] [facility] [address] [place] [address] 03/24/2021 08:41:20 03/24/2021 09:22:02 Coronary arteriosclerosis 90640992 I25.10 Cath Apr 2017 with 25% prox/mid LAD, 30% mid LAD, 20% ostial D1 and 25% distal RCA. EF 55% EKG 12/09/17 SB 57 bpm with Rare PVC's EKG 05/04/18 NSR with mild NSST EKG 11/09/19 SB 55 bpm with mild NSST EKG 09/02/20 NSR with no significan t ST changes. Ex Cardiolite November 2019 was normal with EF. 74% Continue EC ASA 81 Daily and statin Hyperlipidemia 29929236 E78.2 Lipids Aug 2017 Chol 145, LDL 62, HDL 69, Trig 65 She reports that she might have been on 80 mg (sent by pharmacy) at the time of that test. Lipids December 2017 Chol 123, LDL 58, HDL 55, Trig 49 (likely on 80 mg Lipitor at that time) Lipids November 2018 Chol 143, LDL 58, HDL 67, Trig 92 (non-fasti ng) Lipids Jul 2019 Chol 157, LDL 82, HDL 62, Trig 61 (thinks she's on 20 mg Lipitor daily) Had been on Lipitor without adverse symptoms (she apparently has been on 20 mg QD). Rationale for more aggressive lipid lowering was discussed with her (documente d CAD). Increased Lipitor to 40 mg QD Lipids Jul 2020 Chol 134, LDL 64, HDL 57, Trig 53 Because of bilateral calf pains (went to ER 2 separate occasions, once for each leg) stopped Lipitor for 1 month with resolution of leg symptoms.T ried Crestor 10 mg daily but did not tolerate reporting body aches and diarrhea Restarted Lipitor 20 mg daily and reports tolerating .Suggested addition of Co Q-10 daily.Lipi ds January 2021 Chol 165, LDL 79, HDL 72, Trig 69 (was not on a statin at the time)Discu ssed if intolerant to Lipitor in the future, could consider Zetia Chest pain 51619127 R07. 2 Chest pain was atypical based on descriptio n and has resolved. She feels considerab ly better with activity. CXR Apr 2018 showed clear lungs Palpitations 59086688 R0 0.2 These have not been recently noted. Elevated blood-pressure reading without diagnosis of hypertension 037907486 R03.0 BP was slightly higher at last OV Aug 2020--use of Ibuprofen at the time may be a factorBP is well controlled today without antihypert ensive medication s.Continue to monitor. Body mass index 25-29 - overweight 336225830 Z68.25 Noted 7# increase since Aughe reports dietary indiscreti onsDiscuss ed need for efforts toward weight control. [id number] Clint Lugo DO [facility] [address] [place] [address] 10/07/2021 08:44:51 10/07/2021 09:39:27 Coronary arteriosclerosis 80533746 I25.10 Cath Apr 2017 with 25% prox/mid LAD, 30% mid LAD, 20% ostial D1 and 25% distal RCA. EF 55% EKG 12/09/17 SB 57 bpm with Rare PVC's EKG 05/04/18 NSR with mild NSST EKG 11/09/19 SB 55 bpm with mild NSST EKG 09/02/20 NSR with no significan t ST changes.EK G 10/07/21 NSR with normal axis and intervals. No significan t ST changes. Ex Cardiolite November 2019 was normal with EF 74% Continue EC ASA 81 Daily and statin Hyperlipidemia 67779350 E78.2 Lipids Aug 2017 Chol 145, LDL 62, HDL 69, Trig 65 She reports that she might have been on 80 mg (sent by pharmacy) at the time of that test. Lipids December 2017 Chol 123, LDL 58, HDL 55, Trig 49 (likely on 80 mg Lipitor at that time) Lipids November 2018 Chol 143, LDL 58, HDL 67, Trig 92 (non-fasti ng) Lipids Jul 2019 Chol 157, LDL 82, HDL 62, Trig 61 (thinks she's on 20 mg Lipitor daily) Had been on Lipitor without adverse symptoms (she apparently has been on 20 mg QD). Rationale for more aggressive lipid lowering was discussed with her (documente d CAD). Increased Lipitor to 40 mg QD Lipids Jul 2020 Chol 134, LDL 64, HDL 57, Trig 53 Because of bilateral calf pains (went to ER 2 separate occasions, once for each leg) stopped Lipitor for 1 month with resolution of leg symptoms.T ried Crestor 10 mg daily but did not tolerate reporting body aches and diarrhea Restarted Lipitor 20 mg daily and reports tolerating .Suggested addition of Co Q-10 daily.Lipi ds January 2021 Chol 165, LDL 79, HDL 72, Trig 69 (Unclear what she was on at that time)Lipid s September 2021 Chol 174, LDL 101, HDL 58, Trig 65 (Atorvasta tin 20) She reports diarrhea. Unclear if this is an adverse reaction to Statin.Jun ld temporaril y hold statin to exclude adverse drug effect, if desirable from the GI standpoint .She'll review with Dr. Mayda steele try lower dose Atorvastat in if diarrhea is due to Statin. Discussed if completely intolerant to Lipitor in the future, could consider Zetia Chest pain 60080268 R07. 2 Chest pain was atypical based on descriptio n and has resolved. She feels considerab ly better with activity. CXR Apr 2018 showed clear lungs Palpitations 45280397 R0 0.2 These have not been recently noted. Elevated blood-pressure reading without diagnosis of hypertension 068271068 R03.0 BP is normal upon recheck, without antihypert ensive medication . Body mass index 25-29 - overweight 886343539 Z68.25 She reports dietary indiscreti onsDiscuss ed need for efforts toward weight control. Health Concerns Section Related Observation LastModified by Organization Detai ls LastModified Time None Recorded Concern Status LastModified by Organization Details LastModified Time None Recorded Advance Directives Directive Y: Payers Insurance Date Sequence Insurance Name Policy Number Policy Ibanez Covered Member ID Ibanez Member ID Guarantor Name 09/18/2022 2 [employer] SUPPLEMENTAL - [employer]URANCE (MEDICARE SUPPLEMENT) Amira Kim [id number] Amira Kim 09/02/2020 1 [employer] [id number] Amira Kim [id number] Amira Kim 09/18/2022 1 [place] Amira Kim [id number] Amira Kim 09/02/2020 2 [employer] (MEDICARE SUPPLEMENT) Amira Kim [id number] Amira Kim 09/02/2020 1 [employer] - [employer] [id number] Amira Kim [id number] Amira Kim Notes Date Note Type Note Provider Name and Address Organization Details Recorded Time 12/14/2018 text/html Reports feeling well without CP, SOB or palpitations. Achilles issue limits activity. Clint Lugo, DO [address], [place], [address], [facility] 12/14/2018 13:19:50 11/09/2019 text/html Seen for followup after having last been seen in our office approximately one year ago. She reports elevated BP's with her wrist machine but good after running. Running and biking without adverse symptoms. She has recently noted palpitations (racing feeling) without known trigger. Not noted with activity. Reports bad indigestion 3 nights in a row that she thinks could have been related to Lipitor (not occurring since taking Lipitor earlier in the day). Clint Lugo DO [address], [place], [address], [facility] 11/09/2019 15:44:09 09/02/2020 text/html Seen for f/u and reports separate trips to the ER due to right and then left leg calf pains. No DVT either time. She stopped Lipitor for only 3-4 days, last week. Walks and plays tennis without adverse symptoms. Occasional palpitations (racing feeling) without known trigger. Not noted with activity. Terminates with a cough. No chest discomfort. Clint Lugo DO [address], [place], [address], [facility] 09/02/2020 11:37:11 03/24/2021 text/html Seen today for cardiology follow-up.Did not tolerate Crestor dues to myalgias and restarted Lipitor 20 mg without AE.Denies any chest discomfort, palpitations, dyspnea, orthopnea, PND, lightheadedness, or dizziness.Walks and plays golf without adverse symptoms. Clint Lugo DO [address], [place], [address], [facility] 04/10/2021 21:29:58 10/07/2021 text/html Seen today for cardiology follow-up.Recent back pain but otherwise doing well.Had Colonoscopy. Did not tolerate Crestor dues to myalgias and restarted Lipitor 20 mg.No myalgias but does have diarrhea.Denies any chest discomfort, palpitations, dyspnea, orthopnea, PND, lightheadedness, or dizziness.Walks, does pool aerobics and plays golf without adverse symptoms. Clint Lugo, DO [address], [place], [address], [facility] 10/07/2021 09:35:46 OBGyn Episode No OBEpisode recorded.
--- OUTSIDE RECORDS SUMMARY | 2025-06-26 19:54 | XMS_ITS | Clinical Summary ---
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 Name Role Phone Unavailable Primary Care Provider Unavailabl e Medications atorvastatin (Lipitor) 20 MG tablet 20 mg = 1 tab, Oral, Daily, # 30 tab, Start Date: 03/28/21 4:50:00 PM CDT 03/28/2021 Active aspirin 81 MG EC tablet 81 mg = 1 tab, Oral, Daily, # 30 tab, 0 Refill(s), Start Date: 10/16/22 10:39:00 PM CDT 10/16/2022 Active Social History Tobacco Use Types Packs/Day Years Used Date Smoking Tobacco: Never Assessed Comments Unknown Sex and Gender Information Value Date Recorded Sex Assigned at Female 01/11/2024 12:02 AM EDT Legal Sex Female 9:04 PM EDT Gender Identity Female 01/11/2024 12:02 AM EDT Sexual Orientation Not on file Last Filed Vital Signs Vital Sign Reading Time Taken Comments Blood Pressure 130/74 09/21/2022 12:00 PM EDT Pulse - - Temperature - - Respiratory Rate - - Oxygen Saturation - - Inhaled Oxygen Concentration - - Weight 64 kg (141 lb) 09/21/2022 12:00 PM EDT Height 157.5 cm (5' 2 ) 09/21/2022 12:00 PM EDT Body Mass Index 25.79 09/21/2022 12:00 PM EDT Plan of Treatment Health Maintenance Due Date Last Done Comments Bone Density Scan 1954 CT Colonography 1954 Colonoscopy 1954 Colorectal Cancer Screening 1954 FIT-DNA 1954 FIT 1954 FOBT 1954 Medicare Annual Wellness (AWV) 1954 Sigmoidoscopy 1954 DTaP/Tdap/Td Vaccines (1 - Tdap) 1961 Hepatitis C Screening 1972 Mammogram 1994 Pneumococcal Vaccine: 50+ Ye ars (1 of 1 - PCV) 2004 COVID-19 Vaccine (1 - 2024-2 6 season) 2025 Influenza Vaccine (#1) 2025 Lipid Panel 10/17/2027 10/16/2022 HIB Vaccines Aged Out No longer eligi ble based on patient's age to complete this topic Hepatitis A Vaccines Aged Out No long er eligible based on patient's age to complete this topic Hepatitis B Vaccines Aged Out No long er eligible based on patient's age to complete this topic IPV Vaccines Aged Out No longer eligi ble based on patient's age to complete this topic Meningococcal B Vaccine Aged Out No l onger eligible based on patient's age to complete this topic Meningococcal Vaccine Aged Out No jackelyn jorge eligible based on patient's age to complete this topic Rotavirus Vaccines Aged Out No longer eligible based on patient's age to complete this topic Procedures Procedure Name Priority Date/Time Associated Diagnosis Comments LIPID PANEL Routine 10/16/2022 11:54 PM EDT from Last 3 Months or Most Recently Relevant to Health Maintenance Results * Lipid panel (10/16/2022 11:54 PM EDT) Very Low Density Lipoprotein 16 2 - 30 mg/dL [facility] Cholesterol, Total 145.0 140.0 - 200.0 mg/dL [facility] Comment:Total Cholesterol < 200 Desirable 200-239 Borderline high =>240 High Triglycerides 82.00 0.00 - 150.00 mg/dL [facility] Comment:Triglycerides <150 Normal 150-199 Borderline high 200-499 High Hdl Cholesterol 54 >>=50 mg/dL [facility] Comment:HDL Cholesterol <40 Low =>60 High Ldl Direct 74.00 <<=100.00 mg/dL [facility] Blood 10/16/2022 11:5 4 PM EDT us Charan Hoskins MD LAB BLOOD ORDERABLES Final Resu lt [facility] [address] [place] [address], [place] [phone] from Last 3 Months or Most Recently Relevant to Health Maintenance Insurance [place] [address] MEDICARE
--- OUTSIDE RECORDS SUMMARY | 2025-06-26 19:54 | XMS_ITS | Encounter Summary ---
Author Organization [facility] Address [address] [id number] Care Team Providers Care Patient Services Representative Name Role Phone Eliu Negron Primary Care Provider [phone] Reason for Visit * Reason Onset Date Comments Orders 06/14/2025 colonoscopy Encounter Details Date Type Department Care Team (Late st Contact Info) Description 06/14/2025 Telephone [facility] Dig[facility]ive [facility] - [facility] [address] [place] [address] Chirs Feng MD [address] [facility] [address] [place] [address] Orders (colonoscopy) Social History Tobacco Use Types Packs/Day Years Used Date Smoking Tobacco: Former Cigarettes 1 5 0 09/09/1985 - 09/09/1990 Passive Smoke Exposure: Past Smokeless Tobacco: Never Alcohol Use Standard Drinks/Week Comments Yes 5 (1 standard drink = 0.6 oz pur e alcohol) AUDIT-C Answer Date Recorded Q1: How often do you have a drink containing alc ohol? 2-3 times a week 04/17/2025 Q2: How many drinks containi ng alcohol do you have on a typical day when you are drinking? 1 or 2 04/17/2025 Q3: How often do you have si x or more drinks on one occasion? Never 04/17/2025 Comments No Sex and Gender Information Value Date Recorded Sex Assigned at Not on file Legal Sex Female 2:05 PM EST Gender Identity Female 07/22/2023 1:20 PM EST Sexual Orientation Not on file documented as of this encounter Miscellaneous Notes * Telephone Encounter - Vickie De Paz LPN - 06/15/2025 1:43 PM EST Images from the original note were not included. Called patient. No answer. Left a message. AC: Please read [employer] what's in store message & document Call. Thanks * Telephone Encounter - Angelina Mayberry - 06/14/2025 8:12 AM EST Caller's Name: self Relationship to Pt: na Contact Number: [phone] Request/Reason for call: The patient states it is time for a colonoscopy. She request an order placed. Did you notify patient of turn around time? yes documented in this encounter Plan of Treatment Not on file documented as of this encounter Visit Diagnoses Not on filedocumented in this encounter Care Teams Patient Services Representative Relationship Specialty Start Date End Date Eliu Negron [address] [id number] PCP - General Internal Medicine 04/09/25 documented as of this encounter
--- OUTSIDE RECORDS SUMMARY | 2025-06-26 19:54 | XMS_ITS | Data Portability ---
Author Organization [place] [id number] Address [address] [place] [address] Assessment Encounter Date Assessment Date Assessment LastModified by Organization Details LastModified Time 11/04/2022 11/04/2022 Reviewed MRCP findings of a suspected mass noted at the inferior posterior margin of the head of the pancreas, measuring 1.4cm x 1.5cm. No pancreatic duct dilatation. Small gallbladder polyp is supsected measuring 3mm. [email or web address] Not available 10/30/2022 08:49:17 11/18/2022 11/18/2022 Pt is s/p EUS-FNA and CT scan with no abnormal findings. CA 19-9 normal. tonny Not available 11/13/2022 12:12:57 04/21/2023 04/21/2023 Reviewed patient's recent MRI with findings of Tiny cystic lesion in the region of the pancreatic head and the uncinate process measuring 4 mm. [email or web address] Not available 04/20/2023 11:11:31 Plan of Treatment Reminders Order Date Submit Date Provider Last Modified By Organization Details Last Modified Time Details Appointments None recorded. Lab None recorded. Referral None recorded. Procedures None recorded. Surgeries upper gastrointes tinal endoscopy, w/ endoscopic ultrasound exam (SURG) 2022 023 [email or web address] 4 Not available 14:09:30 Imaging MRI, abdomen, w/wo contrast - In 4 months 2022 023 [email or web address] 4 [facility] [place], [facility], [place], [address], 3 06:29:57 MR, cholangiopa ncreatogram , w/o contrast - In 4 months 2022 023 [email or web address] 5 [facility] [place], [address], [place], [address], 15:25:35 Medication Orders None recorded. Patient TargetsNo targets recorded. Patient InstructionsNo instructions recorded. Reason for Referral None Reported. Results Created Date Observation Date Name Description Value Unit Range Abnormal Flag Note LastModifiedBy Organization Detail LastModifiedTime 11/06/1911/05/2022 imagi ng inter preta tion No observ ation record ed. [email or web address] 1 [facility] [address], [place], [address], 07/02/2023 13:43:25 04/20/20 23 04/12/2023 MRI, abdom en, w/wo contr ast No observ ation record ed. [email or web address] [facility] - [address], [place], [address], 04/21/2023 15:36:21 Result Notes None recorded. Problems Name Problem SNOMED Code Status Onset Date Resolution Date Notes Provider Name and Address Organization Details Recorded Time Cyst of pancreas 24969010 Active 2022 EZEQUIEL FREEMAN [address], [place], [address] , [facility] 3 11:11:34 Hypercholester olemia 95259994 Active 2022 Ade beckford, [facility] 3 08:54:03 Problem Notes None recorded. Medical Equipment None Reported. Allergies No known drug allergies Medications Name Sig Start Date Stop Date Status Note LastModified by Organization Details LastModified Time amoxicillin 500 mg capsule TAKE 1 CAPSULE BY MOUTH EVERY 8 HOURS UNTIL FINISHED active Not Available Not Available No t Available buspirone 5 mg tablet TAKE TWO TABLETS BY MOUTH EVERY EVENING active Not Available Not Available No t Available prednisone 10 mg tablet active Not Available Not Available No t Available atorvastatin 20 mg tablet TAKE ONE TABLET BY MOUTH ONE TIME DAILY active Not Available Not Available N ot Available ipratropium 0.5 mg-albuterol 3 mg (2.5 mg base)/3 mL nebulization soln INHALE ONE VIAL VIA NEBULIZER EVERY 12 HOURS NEEDED FOR COUGH active Not Available Not Available No t Available ketoconazole 2 % shampoo WASH THE SCALP,LET SIT FOR 5 MINUTES BEFORE WASHING OFF 3 TIMES A WEEK DIRECTED active Not Available Not Available No t Available azithromycin 250 mg tablet TAKE TWO TABLETS BY MOUTH ON DAY 1, THEN TAKE ONE TABLET ONE TIME DAILY ON DAYS 2-5 active Not Available Not Available No t Available benzonatate 200 mg capsule TAKE ONE CAPSULE BY MOUTH THREE TIMES A DAY NEEDED FOR 10 DAYS active Not Available Not Available No t Available prednisone 20 mg tablet TAKE THREE TABLETS BY MOUTH ONE TIME DAILY FOR 3 DAYS THEN TAKE TWO TABLETS BY MOUTH ONE TIME DAILY FOR 3 DAYS THEN TAKE ONE TABLET BY MOUTH active Not Available Not Available No t Available clobetasol 0.05 % topical cream APPLY CREAM TO SCALP TOPICALLY TWICE DAILY FOR 14 DAYS active Not Available Not Available No t Available omeprazole 40 mg capsule,delay ed release TAKE ONE CAPSULE BY MOUTH ONE TIME DAILY 30 MINUTES BEFORE MORNING MEAL active Not Available Not Available No t Available benzonatate 100 mg capsule 1 CAPSULE 3 TIMES PER DAY NEEDED FOR COUGH active Not Available Not Available No t Available omeprazole 20 mg capsule,delay ed release TAKE ONE CAPSULE BY MOUTH EVERY MORNING active Not Available Not Available No t Available montelukast 10 mg tablet TAKE ONE TABLET BY MOUTH EVERY MORNING active Not Available Not Available No t Available codeine 10 mg-guaifenesi n 100 mg/5 mL oral liquid TAKE 10 ML BY MOUTH EVERY FOUR HOURS NEEDED FOR COUGH active Not Available Not Available No t Available mupirocin 2 % topical ointment APPLY TO THE AFFECTED AREA(S) TOPICALLY TWICE DAILY active Not Available Not Available No t Available clobetasol 0.05 % topical ointment APPLY THIN LAYER TO AFFECTED AREA ONCE DAILY FOR 1 WEEK, THEN NEEDED FOR ITCHING active Not Available Not Available No t Available levofloxacin 500 mg tablet TAKE ONE TABLET BY MOUTH EVERY 24 HOURS FOR 7 DAYS active Not Available Not Available No t Available estradiol 0.01% (0.1 mg/gram) vaginal cream INSERT 0.5 GRAMS VAGINALLY THREE TIMES WEEKLY DIRECTED active Not Available Not Available No t Available methylprednis olone 4 mg tablets in a dose pack TAKE DIRECTED ON DOSE PACK active Not Available Not Available No t Available albuterol sulfate HFA 90 mcg/actuation aerosol inhaler INHALE 2 PUFFS BY MOUTH EVERY 4 TO 6 HOURS NEEDED active Not Available Not Available No t Available clobetasol 0.05 % scalp solution APPLY TO SCALP ONE TIME DAILY NEEDED FOR ITCH/SCALE active Not Available Not Available N ot Available fluticasone propionate 50 mcg/actuation nasal spray,suspens ion USE TWO SPRAYS IN EACH NOSTRIL ONE TIME DAILY active Not Available Not Available No t Available amoxicillin 875 mg-potassium clavulanate 125 mg tablet TAKE ONE TABLET BY MOUTH TWICE A DAY active Not Available Not Available No t Available diclofenac 1 % topical gel APPLY 2 GRAMS TO THE AFFECTED AREA(S) BY TOPICAL ROUTE 4 TIMES PER DAY active Not Available Not Available No t Available azelastine 205.5 mcg (0.15 %) nasal spray SPRAY ONE SPRAY IN EACH NOSTRIL ONE TIME DAILY PREFERRED IN THE EVENING TIME active Not Available Not Available No t Available aspirin 81 mg capsule Take 1 capsule every day by oral route for 30 days. active Not Available Not Available No t Available Vitals Date Recorded Body height Body mass index (BMI) Body weight Heart rate Systolic And Diastolic Provider Name and Address Organization Details Last Updated DateTime 11/04/2022 157.48 cm 25.1 kg/m2 15082.15 g 67 /min 138/85 mm[Hg] Laina Gustafson [facility] 11/04/2022 13:21:10 Social History Question Answer Notes LastModified by [employer] Details LastModified Time Tobacco Smoking Status Never Smoker Henriquedayannadarline Gustafson [facility] 11/09/2022 13:27:39 Do You Have An Advance Directive? Yes Information not available 11/09/2022 What Is Your Level Of Caffeine Consumption? None Information not available 11/09/2022 Sex: Unknown Functional Status Question Answer Note LastModified by [employer] Details LastModified Time How many times per week do you consume alcohol? 3-4 times per week [email or web address] Information not available 11/09/2022 What is your level of alcohol consumption? Moderate [email or web address] Information not available 11/09/2022 Mental Status None recorded. Family History Relationship Description Onset Age of this Age Resolved Age Notes LastModified by Organization Details LastModified Time Mother Atrial fibrillation [email or web address] Not available 05/2023 08:54:43 Mother Hypertensive disorder [email or web address] Not available 2022 08:54:55 Father Alzheimer's disease [email or web address] Not available 2022 08:55:07 Medical History Condition Response GI Problems Y Gynecological HistoryNo gynecological history recorded. Obstetrics History GPAL:G 0 P 0 0 0 0 Past Encounters Encounter ID Performer Location Encounter Start Date Encounter Closed Date Diagnosis/Indication Diagnosis SNOMED-CT Code Diagnosis ICD10 Code Diagnosis IMO Codes Diagnosis Note [id number] MD [facility] [place] [address] [place] [address] 11/04/2022 11:31:11 11/04/2022 13:40:52 Mass of pancreas 911044808 K86.89 The plan for the patient will be upper EUS. Risks and benefits were discussed including risk of perforatio n, infection, and bleeding. Advised patient to stop vitamin E, ASA products and fish oil 1 week prior to procedure. All questions answered to patient's satisfacti on. Patient instructed to call office with any further questions/ concerns. [id number] MD [facility] [place] [address] [place] [address] 11/18/2022 09:04:43 11/18/2022 09:30:09 Cyst of pancreas 68667394 K86.2 Patient's telehealth visit was performed utilizing m[employer]ura video conference platform. The plan for the patient will be repeat MRI in four months. Risks and benefits were discussed including risk of perforatio n, infection, and bleeding. Advised patient to stop vitamin E, ASA products and fish oil 1 week prior to procedure. All questions answered to patient's satisfacti on. Patient instructed to call office with any further questions/ concerns. [id number] EZEQUIEL FREEMAN [facility] [place] [address] [place] [address] 04/21/2023 08:37:18 04/21/2023 09:00:34 Cyst of pancreas 62646643 K86.2 Patient's telehealth visit was performed utilizing m[employer]ura video conference platform. The plan for the patient will be for 1 year follow yp with MRI. All questions answered to patient's satisfacti on. Patient instructed to call office with any further questions/ concerns.T his visit was performed by Rowan Mcnair PA-C. The above assessment and plan of care have been reviewed with Dr. Garza. Health Concerns Section Related Observation LastModified by Organization Detai ls LastModified Time None Recorded Concern Status LastModified by Organization Details LastModified Time None Recorded Advance Directives Directive Y: Payers Insurance Date Sequence Insurance Name Policy Number Policy Ibanez Covered Member ID Ibanez Member ID Guarantor Name 06/03/2023 2 UNSPECIFIED REMIT PAYOR Amira Rachel 06/03/2023 2 [employer] SUPPLEMENTAL - [employer] (MEDICARE SUPPLEMENT) Amira Ramos [id number] Amira Ramos 04/20/2023 1 [place] Amira Ramos [id number] Amira Ramos 11/04/2022 2 [employer] [id number] Amira Ramos [id number] Amira Ramos Notes Date Note Type Note Provider Name and Address Organization Details Recorded Time 11/04/2022 text/html 67 y/o female referred by Dr. Contreras for a pancreatic mass 10/26/22 MRCPThere is a suspected mass noted at the inferior posterior margin of the head of the pancreas, measuring 1.4cm x 1.5cm. No pancreatic duct dilatation. Small gallbladder polyp is suspected measuring 3mm. Presents for evaluation Some abd pain. No h/o pancreatitis. No h/o cancer. Appetite. No n/v. No smoking. Drink one glass of wine a night. No abd sx. Doctor's told her that she had a hiatal hernia, so she started to eat healthier foods/ lost weight. Moody Garza MD [address] [address], [place], [address], [facility]. 11/05/2022 07:18:17 11/18/2022 text/html 67 y/o female referred by Dr. Contreras for a pancreatic mass 10/26/22 MRCPThere is a suspected mass noted at the inferior posterior margin of the head of the pancreas, measuring 1.4cm x 1.5cm. No pancreatic duct dilatation. Small gallbladder polyp is suspected measuring 3mm. Presents for evaluation 11/05/22 EUS-FNAEvaluation of the pancreas revealed normal pancreatic duct and normal pancreatic parenchyma throughout. There was an area of hypoechogenicity toward the head of the pancreas but this appeared to represent the junction of the dorsal and ventral ducts there was no obvious mass noted. Pancreatic duct again was normal throughout this area.Impression is of EUS exam that did not identify any findings consistent with the outside imaging.The plan will be to obtain a CA 19 9 and a pancreatic protocol CT for confirmation. Specimen none. 11/05/22 CT at [facility]-No acute pathology within the abdomen or pelvis.No discrete pancreatic lesion identified. CA 19-9 6 Pt presents for evaluation. No new concerns. Moody Garza MD [address], [address], [facility] 11/23/2022 13:44:55 04/21/2023 text/html 67 y/o female referred by Dr. Contreras for a pancreatic mass 10/26/22 MRCPThere is a suspected mass noted at the inferior posterior margin of the head of the pancreas, measuring 1.4cm x 1.5cm. No pancreatic duct dilatation. Small gallbladder polyp is suspected measuring 3mm. Presents for evaluation 11/05/22 EUS-FNAEvaluation of the pancreas revealed normal pancreatic duct and normal pancreatic parenchyma throughout. There was an area of hypoechogenicity toward the head of the pancreas but this appeared to represent the junction of the dorsal and ventral ducts there was no obvious mass noted. Pancreatic duct again was normal throughout this area.Impression is of EUS exam that did not identify any findings consistent with the outside imaging.The plan will be to obtain a CA 19 9 and a pancreatic protocol CT for confirmation. Specimen none. 11/05/22 CT at [facility]-No acute pathology within the abdomen or pelvis.No discrete pancreatic lesion identified. CA 19-9 6 At the previous visit, the plan for the patient was to follow-up with MRI in 4 months. Patient underwent MRI on 04/12 with findings of Tiny cystic lesion in the region of the pancreatic head and the uncinate process measuring 4 mm. Today she states she is doing well. No new concerns at this time. EZEQUIEL FREEMAN [address], [place], [address], [facility] - [facility]. 04/21/2023 08:57:16 OBGyn Episode No OBEpisode recorded.
--- OUTSIDE RECORDS SUMMARY | 2025-06-26 19:56 | XMS_ITS | Patient Health Record ---
Author Organization [facility] Address [address] [facility] [address] [place] [address] Care Team Providers Care Silviculture Professor Name Role Phone Eliu Negron Primary Care Provider MarilouKiersten Unavailable [phone] Rita Woodall Unavailable [phone] Kyle Clemons Unavailable [phone] RODRIGO KEE Unavailable Allergies Allergen (clinical drug ingredient) Drug/Non Drug Allergy documented on EMR Reaction Allergy Type Onset Date Status cephalexin Cephalexin rash Drug Allergy Activ e Results Component Value Reference Range Flag Notes Rheumatoid Arthritis Profile Reviewed date:01/18/2025 08:15:56 AM Interpretation: Performing Lab:[facility], [address] [place] [address], Phone - [phone], Director - [facility] Notes/Report: Clinical Information:SRC:UC Rheumatoid Factor (RF) 10.3 <14.0 IU/mL Anti-CCP Ab, IgG/IgA 7 0-19 units Moderate positive 40 - 59 Weak positive 20 - 39 Negative <20 Strong positive >59 MAMMOGRAM SCREENING WITH U/S IF REQUIRED Reviewed date:03/15/2025 03:50:08 PM Interpretation: Performing Lab: Notes/Report: US Breast Bilateral Reviewed date:04/04/2025 01:57:14 PM Interpretation: Performing Lab: Notes/Report: Transthorasic Echocardiogram Reviewed date:02/06/2025 04:37:10 PM Interpretation: Performing Lab: Notes/Report: Hemoglobin A1c ([id number], Q- 496) Reviewed date:01/18/2025 08:15:33 AM Interpretation: Performing Lab:[facility] [address] [place] [address], Phone - [phone], Director - MDRichendollar Notes/Report: Clinical Information:SRC:UC Hemoglobin A1c 5.7 4.8-5.6 % H Diabetes: >6.4 Glycemic control for adults with diabetes: <7.0 . Prediabetes: 5.7 - 6.4 Lipid Panel ([id number]) Reviewed date:01/18/2025 08:15:41 AM Interpretation: Performing Lab:[facility], [address] [place] [address], Phone - [phone], Director - MDR[facility]dollar Notes/Report: Clinical Information:SRC:UC Cholesterol, Total 159 100-199 mg/dL Triglycerides 62 0-149 mg/dL HDL Cholesterol 72 >39 mg/dL VLDL Cholesterol Sathish 12 5-40 mg/dL LDL Chol Calc (NIH) 75 0-99 mg/dL Urine Culture, Routine Reviewed date:01/18/2025 08:15:52 AM Interpretation: Performing Lab:[facility], [address] [place] [address], Phone - [phone], Director - MDRichendollar Notes/Report: Clinical Information:SRC: Clinical Information:SRC:UC Urine Culture, Routine Final report Result 1 Mixed urogenital deion 25,000-50,000 colony forming units per mL Comp. Metabolic Panel (12) Reviewed date:01/18/2025 08:16:00 AM Interpretation: Performing Lab:[facility], [address] [place] [address], Phone - [phone], Director - MDR[facility] Notes/Report: Clinical Information:SRC:UC Glucose 98 70-99 mg/dL BUN 18 8-27 mg/dL Creatinine 0.99 0.57-1.00 mg/dL eGFR 61 >59 mL/min/1.73 BUN/Creatinine Ratio 18 12-28 Sodium 142 134-144 mmol/L Potassium 4.2 3.5-5.2 mmol/L Chloride 103 96-106 mmol/L Calcium 9.3 8.7-10.3 mg/dL Protein, Total 6.8 6.0-8.5 g/dL Albumin 4.5 3.9-4.9 g/dL Globulin, Total 2.3 1.5-4.5 g/dL Bilirubin, Total 2.4 0.0-1.2 mg/dL H Alkaline Phosphatase 62 44-121 IU/L AST (SGOT) 17 0-40 IU/L CBC With Differential/Platel et ([id number]) Reviewed date:01/18/2025 08:16:11 AM Interpretation: Performing Lab:[facility], [facility], Phone - [phone], Director - MDR[facility]dollar Notes/Report: Clinical Information:SRC:UC WBC 6.0 3.4-10.8 x10E3/uL RBC 4.43 3.77-5.28 x10E6/uL Hemoglobin 13.7 11.1-15.9 g/dL Hematocrit 40.8 34.0-46.6 % MCV 92 79-97 fL MCH 30.9 26.6-33.0 pg MCHC 33.6 31.5-35.7 g/dL RDW 13.0 11.7-15.4 % Platelets 246 150-450 x10E3/uL Neutrophils 42 Not Estab. % Lymphs 40 Not Estab. % Monocytes 7 Not Estab. % Eos 10 Not Estab. % Basos 1 Not Estab. % Neutrophils (Absolute) 2.5 1.4-7.0 x10E3/uL Lymphs (Absolute) 2.4 0.7-3.1 x10E3/uL Monocytes(Absolute) 0.4 0.1-0.9 x10E3/uL Eos (Absolute) 0.6 0.0-0.4 x10E3/uL H Baso (Absolute) 0.1 0.0-0.2 x10E3/uL Immature Granulocytes 0 Not Estab. % Immature Grans (Abs) 0.0 0.0-0.1 x10E3/uL Urinalysis, Complete Reviewed date:01/18/2025 08:16:15 AM Interpretation: Performing Lab:[facility], [facility], Phone - [phone], Director - [facility] Notes/Report: Clinical Information:SRC:UC Clinical Information:SRC:UC Specific [place] 1.015 1.005-1.030 pH 7.0 5.0-7.5 Urine-Color Yellow Yellow Appearance Clear Clear WBC Esterase Negative Negative Protein Negative Negative/Trace Glucose Negative Negative Ketones Negative Negative Occult Blood Negative Negative Bilirubin Negative Negative Urobilinogen,Semi-Qn 0.2 0.2-1.0 mg/dL Nitrite, Urine Negative Negative Microscopic Examination Microscopic follows if indicated. Microscopic was indicated and was performed. Microscopic Examination See below: Microscopic follows if indicated. Microscopic was indicated and was performed. WBC None seen 0 - 5 /hpf RBC None seen 0 - 2 /hpf Epithelial Cells (non renal) None seen 0 - 10 /hpf Casts None seen None seen /lpf Bacteria None seen None seen/Few DX Ankle 3 or more View LT Reviewed date:04/16/2025 08:11:29 AM Interpretation: Performing Lab: Notes/Report: HEPATIC FUNCTION PANEL Reviewed date:01/21/2025 03:15:08 PM Interpretation: Performing Lab:[facility], [id number], [id number] Angel Kirk MD Notes/Report: FASTING PROTEIN, TOTAL 7.1 6.1-8.1 g/dL N ALBUMIN 4.6 3.6-5.1 g/dL N GLOBULIN 2.5 1.9-3.7 g/dL (calc) N ALBUMIN/GLOBULIN RATIO 1.8 1.0-2.5 (calc) N BILIRUBIN, TOTAL 2.3 0.2-1.2 mg/dL H BILIRUBIN, DIRECT 0.4 < OR = 0.2 mg/dL H BILIRUBIN, INDIRECT 1.9 0.2-1.2 mg/dL (calc) H ALKALINE PHOSPHATASE 53 37-153 U/L N AST 17 10-35 U/L N ALT 14 6-29 U/L N CT FOOT W/CONTRAST & 3D COLEEN N (LEFT) Reviewed date:04/18/2025 11:32:46 AM Interpretation: Performing Lab: Notes/Report: Reason For Referral Reason [MAMMOGRAM SCREENING WITH U/S IF REQUIRED] Pre-Authorization is required for Lab/DI/Procedure ordered Diagnosis 1 Encounter for screen ing mammogram for malignant neoplasm of breast (Z12.31) Referral Organization [facility] Referring Provider First Name Eliu Referring Provider Last Name Jamil Referring Provider Speciality Internal M edicine Referred Provider [facility] Referred Provider Specialty Radiology Procedure 1 SCR MAMMO BI INCL CA D ([id number]) General Notes Cinthya Clemons 2024 02:48:48 PM >PCP ordered, faxed, sent patient notification Referral Priority Routine Reason [US Breast Bilateral ] Pre-Authorization is required for Lab/DI/Procedure ordered Diagnosis 1 Inconclusive mammogr am (R92.2) Referral Organization [facility] Referring Provider First Name Eliu Referring Provider Last Name Jamil Referring Provider Speciality Internal edicine Referred Provider [facility] Referred Provider Specialty Radiology Procedure 1 ULTRASOUND BREAST CO MPLETE ([id number]) General Notes Desire Larose 2024 02:16:23 PM >pcp ordered, faxed Referral Priority Routine Reason Home Health Evaluati on Medicare Aligned Diagnosis 1 Pain in left foot (M 79.672) Referral Organization [facility] Referring Provider First Name Eliu Referring Provider Last Name Jamil Referring Provider Speciality Internal edicine [facility] Special[facility] Procedure 1 [facility] PHYS TRPST [facility] EA 15 MIN (G0151) Procedure 2 SN (G0299) Procedure 3 [facility] AIDE H OM EA 15 MIN (G0156) General Notes Gemma Thomas 04/18/2025 10:37:25 AM > PCP Approved through TE. Please process Urgent.Deonte Anna 04/18/2025 11:56:32 AM >Faxed all notes to Deonte mora Anna 05/18/2025 10:23:45 AM EST >patient serviced Referral Priority Urgent Reason Verbal Colonoscopy - Dr. Chris Feng Diagnosis 1 Gastro-esophageal re flux disease without esophagitis (K21.9) Referral Organization [facility] Referring Provider First Name Eliu Referring Provider Last Name Jamil Referring Provider Speciality Internal edicine Referred Provider Chris Feng Referred Provider Specialty Gastroentero logy General Notes Sonali Linda 06/15 04:17:14 PM EST > Pt called requesting a referral for colonoscopy with Dr. Chris Feng at [address] [address]. Fax number: [phone]. Pls be advised. Thank you., DyAndraeyobani 06/16/2025 10:33:35 PM EST > Need to call the specialist office for complete details of the specialist and the request, and if they have progress notes. P: , Cinthya Clemons 06/20/2025 03:56:41 PM EST >Faxed order and sent patient notification, Sonali Linda 06/25/2025 08:29:52 AM EST > Pt called requesting to refax referral to [phone]. Refaxed. Referral Priority Routine Medications Medication SIG (Take, Route, Frequency, Duration) Notes Start Date End Date Status Fluticasone Propionate 50 MCG/ACT Suspension 1 spray in each nostril Nasally Once a day; Duration: 30 days 04/13/2024 Active Aspir-Low 81 MG Tablet Delay ed Release 1 tablet Orally Once a day; Duration: 90 days Active Atorvastatin Calcium 20 MG Tablet 1 tablet Orally Once a day; Duration: 90 days Active MethylPREDNISolone (Ciro) 4 M G Tablet as directed Orally daily; Duration: 6 days MEDROL PK DIRECTED 06/09/2025 Active Itraconazole 100 MG Capsule [address] a meal Orally Once a day Active Gabapentin 100 MG Capsule 1 capsule Oral ly 3 times a day; Duration: 30 days 04/23/2025 Active Losartan Potassium 25 MG Tablet 1 tablet Orally Once a day 12/02/2023 Active Omeprazole 20 MG Capsule Delayed Release 1 capsule 30 minutes before morning meal Orally as needed; Duration: 90 days Active Social History Tobacco Use: Social History Observation Description Date Details (start date - stop date) Never Smoker NA - NA Sex Assigned At : Social History Observation Description Sex Assigned At Female Social History Alcohol Social Info Question Answer Notes Audit C Did you have a drink containing alcohol i n the past year Yes How often did you have a drink containing alcohol last year? Never (0 points) How many drinks did you have on a typical day when you are drinking in the past year? 1 or 2 (0 points) How often did you have six or more drinks on one occasion in the past year? Never (0 points) Points 0 Interpretation Negative Drug Screening Social Info Question Answer Notes DAST-10 (2020 Edition) 1. Have you used drugs other than those required for medical reasons? No 2. Do you abuse more than one drug at a time? No 3. Are you always able to stop using drugs when you want to? No 4. Have you had blackouts or flashbacks as a res ult of drug use? No 5. Do you ever feel bad or guilty about your iliana g use? No 6. Does your spouse (or pare nts) ever complain about your involvement with drugs? No 7. Have you neglected your family because of you r use of drugs? No 8. Have you engaged in illegal activities in ord er to obtain drugs? No 9. Have you ever experienced withdrawal symptoms (felt sick) when you stopped taking drugs? No 10. Have you had medical pro blems as a result of your drug use (e.g., memory loss, hepatitis, convulsions, bleeding etc.)? No Results: 1 Interpretation of Score: Low level Caffeine Social Info Question Answer Notes Screening 1- Do you drink more than 2 cups of caffeine per day (coffee, tea, energy drinks, cola, pills, patches, shots)? If patient answers No to Question 1, stop questionnaire. If yes, proceed. Yes 2- Do you need caffeine in order to perform your daily routine? NO 3- Have you had times when you consume more caffeine than intended? NO 4- Do you get headaches when you skip coffee or other sources of caffeine? NO 5- Do you feel anxious or jittery when you drink caffeine? NO 6- Have you ever tried to cut back on your caffeine intake and been unable to do so? NO 7- Do you need more and more caffeine to feel comfortable? NO 8- Do you ever crave caffeine when it is not your usual time of day to drink coffee or other caffeinated drinks? 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 Problem Osteoarthritis (696171836) Unspecified osteoarthritis, unspecified site (M19.90) Active confirmed Problem Lumbar radiculopathy (928918896) Radiculopathy, lumbar region (M54.16) Active confirmed Problem Osteopenia (450888459) Osteopenia, unspecified location (M85.80) Active confirmed Vital Signs Heart Rate 73 /min 05/31/2025 Temperature 97.0 degrees Fahrenheit 05/31/2025 Oximetry 98 % 05/31/2025 Blood pressure diastolic 72 mm Hg 05/31/2025 Height 63 in 05/31/2025 Blood pressure systolic 112 mm Hg 05/31/2025 Weight 130.0 lbs 05/31/2025 BMI 23.03 kg/m2 05/31/2025 Encounters Encounter Location Date Provider Diagnosis [place] [id number] [place] [address] 04/29/2025 Kyle Clemons [facility] [address] [facility] [address] [place] [address] 06/09/2025 Kiersten Zamarripa [address] [place] [place] [address] [place] [address] 09/06/2024 Rita Woodall Simple chronic bronchitis J41.0 ; Hyperlipidemia, unspecified E78.5 ; Essential (primary) hypertension I10 ; Atherosclerotic heart disease of solomon coronary artery without angina pectoris I25.10 ; Gastro-esophageal reflux disease without esophagitis K21.9 and Osteopenia, unspecified location M85.80 [address] [place] [address] 07/31/2024 Eliu Negron [address] [place] [id number] 04/10/2025 Eliu Negron Radiculopathy, lumba r region M54.[address] [place] [address] 10/19/2024 Eliu Negron Other injury of unspecified body region, initial encounter T14.8XXA and Benign lipomatous neoplasm of skin and subcutaneous tissue of unspecified limb D17.[address] [place] [address] 01/25/2025 Eliu Negron Simple chronic bronchitis J41.0 ; Encounter for screening, unspecified Z13.9 ; Essential (primary) hypertension I10 ; Gilbert syndrome E80.4 ; Radiculopathy, lumbar region M54.16 ; Unspecified osteoarthritis, unspecified site M19.90 and Encounter for screening mammogram for malignant neoplasm of breast Z12.[address] [place] [address] 01/19/2025 Eliu Negron Hyperlipidemia, unspecified E78.[address] [place] [address] 04/23/2025 RODRIGO LICONA-SOFIA Neuralgia and neuritis, unspecified M79.2 ; Diarrhea, unspecified R19.7 and Cellulitis of left toe L03.[address] [place] [address] 04/27/2025 RODRIGO KEE Generalized skin eruption due to drugs and medicaments taken internally L27.0 ; Ingrowing nail L60.0 and Hereditary and idiopathic neuropathy, unspecified G60.[address] [place] [address] 05/31/2025 Eliu Negron Acute upper respiratory infection, unspecified J06.9 [facility] [address] [place] [address] 01/11/2025 Eliucecil Walterso Hyperlipidemia, unspecified E78.5 ; Other specified abnormal findings of blood chemistry R79.89 ; Unspecified abnormal findings in urine R82.90 and Atherosclerotic heart disease of solomon coronary artery without angina pectoris I25.10 [facility] [address] [place] [address] 01/18/2025 Eliu Walterso [facility] [address] [place] [id number] 03/29/2025 Eliu Walterso Inconclusive mammogr am R92.2 [facility] [address] [place] [address] 04/18/2025 Eliu Walterso [facility] [address] [place] [address] 04/20/2025 Eliu Walterso [facility] [address] [place] [id number] 04/23/2025 Eliu Walterso [facility] [address] [place] [id number] 04/23/2025 Eliu Walterso [facility] [address] [place] [address] 04/23/2025 Eliu Walterso [facility] [address] [place] [address] 04/23/2025 Eliu Walterso Neuralgia and neuritis, unspecified M79.2 [facility] [address] [place] [address] 04/29/2025 Eliu Walterso Cellulitis, unspecified L03.90 [facility] [address] [place] [address] 05/07/2025 Eliu Walterso [facility] [address] [place] [address] 05/30/2025 Eliu Walterso Neuralgia and neuritis, unspecified M79.2 [facility] [address] [place] [phone] 06/09/2025 Eliu Walterso [facility] [address] [place] [address] 06/11/2025 Eliu Walterso Assessments Encounter Date Diagnosis (ICD Code) Assessment Notes Treatment Notes Treatment Clinical Notes Section Notes 09/06/2024 Simple chronic bronchitis (ICD-10 - J41.0) stable, on no rescue inhaler. The patient was advised to monitor symptoms for clinical infections, like fever, sputum, and SOB. Strongly encourage smoking cessation , and aggressive treatment of allergies. Keep current on Flu and pneumonia vaccinations. The best way to prevent and improve a smoker's cough is to quit smoking. encouraged to quit smoking. Advised to use inhaler as needed for help with cough and breathing issues. To call for Worsening symptoms. will continue monitor with spirometry annual for further care. 10/19/2024 Other injury of unspecified body region, initial encounter (ICD-10 - T14.8XXA) Musculoskeletal strain of L-Trapezius muscle region, continue Ibuprofen and use heating pad, continue monitoring. 01/11/2025 Hyperlipidemia, unspecified (ICD-10 - E78.5) 01/19/2025 Hyperlipidemia, unspecified (ICD-10 - E78.5) 01/25/2025 Simple chronic bronchitis (ICD-10 - J41.0) Stable, ano active wheezing, well compensated, on no inhalers, continue momnitoring. 04/23/2025 Neuralgia and neuritis, unspecified (ICD-10 - M79.2) Start gabapentin for nerve pain radiating from the left great toe up her foot and ankle. Discussed we can increase the gabapentin if she has improvement. 04/23/2025 Diarrhea, unspecified (ICD-10 - R19.7) Patient reported stomach pain, frequent nausea, vomiting after Cymbalta, and ongoing diarrhea. No solid bowel movement recently; drinks a lot of water. Recent MRI showed stable pancreatic cyst and normal bowels. Blood work at hospital showed elevated glucose, but no history of diabetes. Patient denies any hx of diverticulitis. Would rather wait before CT A/P or GI referral. - Advised to monitor symptoms and wait to see if they resolve. - Instructed to call office if gastrointestinal symptoms persist for possible CT scan. 04/23/2025 Neuralgia and neuritis, unspecified (ICD-10 - M79.2) 04/27/2025 Generalized skin eruption due to drugs and medicaments taken internally (ICD-10 - L27.0) Rash developed after five days of Keflex use. Patient has no prior history of Keflex use. No shortness of breath or difficulty swallowing reported. Rash attributed to allergic reaction to Keflex. - Stop Keflex due to allergic reaction. - Document Keflex allergy in medical record. 04/27/2025 Ingrowing nail (ICD-10 - L60.0) patient saw podiatry this wednesday and he did revision on the ingrown toe nail. She states he wanted to put her on cipro but then told her to continue keflex. 04/29/2025 Cellulitis, unspecified (ICD-10 - L03.90) cellulit 05/30/2025 Neuralgia and neuritis, unspecified (ICD-10 - M79.2) 05/31/2025 Acute upper respiratory infection, unspecified (ICD-10 - J06.9) Worsenig symptoms since Wednesday, will start Azithromycin and benzonatate, patient advised to stop the Itraconazole while taking these meds, continue monitoring. 03/29/2025 Inconclusive mammogram (ICD-10 - R92.2) 04/10/2025 Radiculopathy, lumbar region (ICD-10 - M54.16) Worsening symptoms, continue treatment plan started in ER, advised to use a heating pad in addition to this, continue monitoring. 04/23/2025 Cellulitis of left toe (ICD-10 - L03.032) Redness noted around toe; provider concerned about possible infection at site of ingrown toenail removal. No swelling in legs; patient keeps foot covered and elevated. Patient denied fever and chills but unsure about fever. - Prescribed Keflex for 10 days, 1 tablet twice a day, to treat possible infection. - Advised to wash toe with warm water and soap, dry thoroughly, and keep covered. - Recommended to avoid socks and shoes to prevent sweating and promote healing. - Instructed to eat with medication to reduce stomach upset. 04/27/2025 Hereditary and idiopathic neuropathy, unspecified (ICD-10 - G60.9) Neuropathy in the left foot started after the ingrown toe nail surgery and she states the pain starts at the top of the foot and radiates up the leg. Started gabapentin and she saw improvement. Advised take 100mg at breakfast and lunch and take 200mg at bed time. She agreed for now. 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 09/06/2024 Hyperlipidemia, unspecified (ICD-10 - E78.5) Chronic, Stable, with medication tax compliance agent weight gain, diet and daily activity. Check weight, BP and lipid on OV. Exercise regularly, at least 30 min 4-6 times per week. Lose weight if overweight. If you smoke, quit. Eat a heart healthy diet: plenty of fruits and vegetables, avoid bad fats, such as saturated and trans (found in butter, coconut and palm oil, shortening and margarine, meats and whole milk dairy products). stable asymptomatic Assess response to lifestyle modification in adjunct to medication by labs and weight. Goals discussed with the patient 09/06/2024 Essential (primary) hypertension (ICD-10 - I10) Per cardiology notes The patient is Stable. The patient continues with medical treatment: The patient is advised to maintain a low salt/DASH diet. Increase daily exercise to 30 minutes of low impact per day. Home blood pressure checks with a diary if possible. Continue lab surveillance. I Ordered CBC, CMP, Albumin ratio, and urinalysis in 4 months. Follow up every three months. 01/11/2025 Unspecified abnormal findings in urine (ICD-10 - R82.90) 01/25/2025 Essential (primary) hypertension (ICD-10 - I10) Per cardiology notes Stable, BP controlled, continue treatmetn plan and monitoring. 01/25/2025 Gilbert syndrome (ICD-10 - E80.4) Hyperbilirubi nemia. Stalble, mild hypebilirubinemia on labs, doing well, continue monitoring. 01/11/2025 Atherosclerotic heart disease of solomon coronary artery without angina pectoris (ICD-10 - I25.10) 09/06/2024 Atherosclerotic heart disease of solomon coronary artery without angina pectoris (ICD-10 - I25.10) Per cardiology notes Reviewed the history of CAD and previous events, treatments, and interventions. The patient reports no current symptoms or concerns. The condition is being followed with assistance from a product development assistant. Patient maintains good control of blood pressure, cholesterol, and sugar. 09/06/2024 Gastro-esophageal reflux disease without esophagitis (ICD-10 - K21.9) 4 mm cyst in pancreatic head noted in CT stable. Reviewed gastroesophageal reflux disease and dietary measures including weight control and weight reduction also management options including antiacids H2 blockers and PPIs 01/25/2025 Radiculopathy, lumbar region (ICD-10 - M54.16) Stable, symptoms at baseline relieved with OTC NSAID's, continue monitoring. 01/25/2025 Encounter for screening mammogram for malignant neoplasm of breast (ICD-10 - Z12.31) 01/25/2025 Unspecified osteoarthritis, unspecified site (ICD-10 - M19.90) Stable, symptoms at baseline relieved with OTC NSAID's, continue monitoring. 09/06/2024 Osteopenia, unspecified location (ICD-10 - M85.80) Monitor for bone pain, functional limitation. Take Calcium with Vit D 2 times a day. Exercise advised. Monitor DEXA, Calium, vitamin D level. Treat accordingly Will continue to monitor, stable 04/23/2025 Other Redness noted around toe; provider concerned about possible infection at site of ingrown toenail removal. No swelling in legs; patient keeps foot covered and elevated. Patient denied fever and chills but unsure about fever. - Prescribed Keflex for 10 days, 1 tablet twice a day, to treat possible infection. - Advised to wash toe with warm water and soap, dry thoroughly, and keep covered. - Recommended to avoid socks and shoes to prevent sweating and promote healing. - Instructed to eat with medication to reduce stomach upset. Plan Of Treatment Next Appt Details Provider Name:Eliu Walterso, 08/02/2025 10:30:00 AM, [address], [address], [place], [address], Insurance Providers Payer Name Payer Address Payer Phone Subscriber Number Group Number Insured Name Patient Relationship to Insured Coverage Start Date Coverage End Date Medicare Aligned [address] [place] [phone] [id number] SAULO KIM Self - patient is the insured 4 [employer] [facility] Supplemental [address] [place] [address] [id number] SAULO KIM Self - patient is the insured 4 Medical (General) History Medical History History ICD Code bronchitis High Cholesterol Surgical History Surgery Date(Month/Year) Ingrown toenail removal, right toe, sept ember 03/2025 Hospitalization History Reason Date(Month/Year) Severe pain management, [facility] yusef Medrano 08/23/2023
--- OUTSIDE RECORDS SUMMARY | 2025-06-26 19:57 | XMS_ITS | Patient Health Record ---
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 Name Role Phone MK MCMULLEN Unavailable [phone] Allergies No Known Allergies Reason For Referral No Information Medications Medication SIG (Take, Route, Frequency, Duration) Notes Start Date End Date Status Omeprazole 20 MG Capsule Delayed Release 1 capsule Orally Once a day; Duration: 30 day(s) Active Fluticasone Propionate 50 MCG/ACT Suspension 1 spray in each nostril Nasally Once a day; Duration: 30 day(s) Active Albuterol Sulfate 108 (90 Base) MCG/ACT Aerosol Powder Breath Activated 1 puff as needed Inhalation every 4 hrs Active Aspirin 81 MG Tablet Delayed Release 1 tablet Orally Once a day; Duration: 30 day(s) Active Atorvastatin Calcium 20 MG Tablet 1 tablet Orally Once a day; Duration: 30 day(s) Active Famotidine 40 MG Tablet 1 tablet after b reakfast and 1 at bedtime Orally Twice a day; Duration: 30 days Active Social History Tobacco Use: Social History Observation Description Date Details (start date - stop date) Never Smoker NA - NA Social History Drug/Alcohol: Social Info Question Answer Notes AUDIT-C (Standard) Did you have a drink containing alcohol in the past year? Yes How often did you have six or more drinks on one occasion in the past year? 2 to 3 times per week (3 points) How many drinks did you have on a typical day when you were drinking in the past year? 3 or 4 drinks (1 point) How often did you have a drink containing alcohol in the past year? 2 to 4 times a month (2 points) Points 6 Interpretation Positive Alcohol MODERATION OF ETOH C ONSUMPTION RECOMMENDATION: Counseling about alcohol consumption moderate alcohol usage 4 glasses of wi ne per week Tobacco Use: Social Info Question Answer Notes Tobacco Control (Standard) Tobacco use: Nonsmoker Additional Findings: Tobacco non-user Current no nsmoker Problems Problem Type SNOMED Code ICD Code Onset Dates Problem Status W/U Status Risk Notes Problem Chronic sinusitis (08369323) Chronic sinusitis, unspecified (J32.9) Active confirmed Problem Postnasal drip (14187937) Postnasal drip (R09.82) Active confirmed Problem Nasal congestion (22827316) Nasal congestion (R09.81) Active confirmed Problem Chronic cough (07814320) Chronic cough (R05.3) Active confirmed Problem Gastro-esophagea l reflux disease without esophagitis (096071399) Gastro-esophage al reflux disease without esophagitis (K21.9) Active confirmed Problem Dysfunction of bilateral eustachian tubes (244264013857589 0) Other specified disorders of Eustachian tube, bilateral (H69.83) Active confirmed Problem Bilateral otalgia (690772624) Otalgia, bilateral (H92.03) Active confirmed Plan Of Treatment No Information Insurance Providers Payer Name Payer Address Payer Phone Subscriber Number Group Number Insured Name Patient Relationship to Insured Coverage Start Date Coverage End Date MEDICARE [place] PART [address] [place] [address] [id number] SAULO KIM Self - patient is the insured [facility] [address] [place] [address] [id number] SAULO KIM Self - patient is the insured Medical (General) History Medical History History ICD Code Esophageal reflux heart disease high cholesterol Surgical History Surgery Date(Month/Year) skin cancer surgery hysterectomy 2002
--- OUTSIDE RECORDS SUMMARY | 2025-06-26 19:57 | XMS_ITS | Data Portability ---
Author Organization [facility], formerly [facility], [facility] Address [address] [place] [id number] Care Team Providers Care Production Administrative Assistant Name Role Phone PRESSER, JACQUELYN Primary Care Provider Assessment Encounter Date Assessment Date Assessment LastModified by Organization Details LastModified Time 10/09/2021 10/09/2021 66-year-old fema le who presents today with past medical history of dyslipidemia and GERD with left hip peritrochanteric pain syndrome. Upon review of the patient's history of present illness, physical exam, and radiographs, I diagnosed them with peritrochanteric pain syndrome of the hip. Today, I discussed the natural history of this disease and its prognosis. I have counseled the patient on treatment options that include oral anti-inflammatorie s, physical therapy, and injections. Plan: 1) Greater trochanteric bursa injection 2) Physical therapy 3) Oral anti-inflammatorie s. Prescription drug management was reviewed with the patient. Discussion took place so that the patient understands when to take the medication, the duration, and possible dangers of incorrect administration. Side effect profiles were reviewed. 4) Return to clinic for follow-up As needed [email or web address] Not available 10/10/2021 15:34:40 01/23/2022 01/23/2022 4 views of the right shoulder demonstrate very minimal osteoarthritis of the right shoulder. We also obtained 2 views of the cervical spine this demonstrated C5-C6 cervical spondylosis Cervical radiculopathy with likely pinched nerve I discussed with Amira today that I believe most of her symptoms are coming from a pinched nerve in her neck. We would recommend a Medrol Dosepak as well as some physical therapy. [place] encouraged her to try the therapy a few visits and if she needs more we can get send a prescription [place] She can definitely learn the exercises and do these on her own. In addition if the Medrol Dosepak does not work we would send more anti-inflammatory medication however she has some naproxen. She is not returning until mid April. [email or web address] Not available 01/23/2022 11:46:20 03/27/2022 03/27/2022 66 year old fema le with a left thigh contusion Activities as tolerated Stretching demonstrated in the office today Follow up as needed AP lateral the left femur: no fracture or dislocation is seen. [email or web address] Not available 03/27/2022 15:12:53 09/22/2022 09/22/2022 Images: 3 views of the right elbow demonstrate no arthritis, fractures or bony osteophytes. Impression: A diagnosis of Lateral epicondylitis of the right elbow has been determined. The clinical and radiographic findings were discussed in detail. A significant amount of time was spent providing education on the anatomy of the elbow joint, the basis for its dysfunction and the rationale for my treatment recommendations. We have discussed that this condition can become progressively worse over time. The basis for non-operative treatment has been explored. Not all nonoperative measures have been exhausted. Non-operative recommendations include but are not limited to physical therapy, activity modification, bracing NSAIDs, and injections. The patient has been instructed on a home regiment of stretching. Home stretching sheet has been provided. Activity modification will include the avoidance of activities that precipitate symptoms or excessively load the elbow joint. I instructed them on the use of an elbow brace and demonstrated where it should be worn. The role of NSAID's has been discussed though I have asked the patient to contact their internal medicine doctor or box tender before beginning a course of these prescribed medications. I did offer them Voltaren gel for their elbow. Injections of cortisone, platelet rich plasma or stem cells will be given based on their documented need. We discussed the short term benefits of steroids but assisted consequences. In addition, we discussed the proposed benefits of PRP injections. I have explained the importance of frequent follow-up so that we can gauge improvement. If clinical improvement is not evident then this may prompt the recommendation for further radiographic workup, other testing and eventually surgical repair. Surgical options have also been presented. [email or web address] Not available 09/28/2022 08:00:40 Plan of Treatment Reminders Order Date Submit Date Provider Last Modified By Organization Details Last Modified Time Details Appointments None recorded. Lab None recorded. Referral physical therapist referral - Total # of Visits: 18 2021 022 SARAH [facility] [place], [address], [address], [place], [address], 2 00:26:31 physical therapist referral - 1. Gluteal and IT band stretchin g with manual therapy as indicated 2. teach home exercise and stretchin g (HEP) 3. trial of iontophor esis as indicated (if no pacemaker ) 4. Graston as indicated for IT band 5. functiona l restorati on Total # of Visits: 14 2021 022 [email or web address] Not available 15:28:13 physical therapist referral 2020 021 lucy [facility] [place], [address], [address], [place], [address], 1 09:50:10 Procedures None recorded. Surgeries None recorded. Imaging XR, elbow, 3 or more view 2022 023 [email or web address] [facility], [address], [place], [address], 3 12:49:39 XR, femur, 2 or more view 2021 022 jose [facility], [address], [address], [place], [address], 2 15:13:28 XR, hip + pelvis, unilatera l, 2 or 3 view 2021 022 tucker [facility], [address], [address], [place], [address], 2 15:46:08 XR, lumbosacr al spine, 2 or 3 view 2021 022 [email or web address] [facility], [address], [place], [address], 2 15:41:31 Medication Orders Voltaren Arthritis Pain 1 % topical gel 2022 023 [email or web address] [id number], [address] [address], [place], [address], 3 12:49:39 Medrol (Ciro) 4 mg tablets in a dose pack 2021 022 [email or web address] [id number], [address] [facility] [address], [place], [address], 2 08:20:16 Mobic 15 mg tablet 2020 021 [email or web address] [id number], [address] [address], [place], [address], 1 09:50:10 Patient TargetsNo targets recorded. Patient Instructions Encounter Date Encounter Id Patient Instructions Last Modified By Organization Details Last Modified Time 08/30/2020 [id number] The patient was instructed to ice the injured extremity. Nonsteroidal anti-inflammatory medication would be an appropriate treatment option for the patient. Nonsteroidal anti-inflammatory medication should be taken with food and alcohol consumption should be avoided. This type of medication can cause stomach problems or other complications, and if so, the medication should be discontinued and the office should be notified. Prescription NSAIDs as well as over the counter NSAIDs are similar in efficacy and have similar risks/complicatio ns. The patient was advised to limit activities that cause increased inflammation, swelling and pain. Guidelines for activity modification were reviewed with the patient. The importance of supervised physical therapy was reviewed with the patient in the office today. compression. Prescription drug management was reviewed with the patient. Discussion took place so that the patient understands when to take the medication, the duration and possible dangers of incorrect administration. Side effect profiles were reviewed. [email or web address] Not available 08/30/2020 09:18:37 10/09/2021 [id number] Hip Trochanteric Bursitis EDUARDO Mary Alice [email or web address] Not available 10/09/2021 14:46:03 Reason for Referral Physical Therapist Referral for Strain of gastrocnemius tendon Referring Physician: Carlos Eduardo Espinal, Orthopedic Sports Medicine, Encounter Date: 08/30/2020 Physical Therapist Referral for Greater trochanteric pain syndrome 1. Gluteal and IT band stretching with manual therapy as indicated2. teach home exercise and stretching (HEP)3. trial of iontophoresis as indicated (if no pacemaker)4. Graston as indicated for IT band5. functional restorationTotal # of Visits: 14 Referring Physician: Enrique Mattson, Orthopedic Surgery-Adult Reconstructive, Encounter Date: 10/09/2021 Physical Therapist Referral for Subacromial bursitis of right shoulder Total # of Visits: 18 Referring Physician: Duncan An, Orthopedic Surgery Shoulder and Elbow, Encounter Date: 01/23/2022 Results Created Date Observation Date Name Description Value Unit Range Abnormal Flag Note LastModifiedBy Organization Detail LastModifiedTime 10/10/19 22 XR, hip + pelvi s, unila teral , 2 or 3 view No observ ation record ed. tucker [facility] [address], [place], [address], 10/10/2021 15:33:43 10/10/19 22 XR, lumbo sacra l spine , 2 or 3 view No observ ation record ed. tucker [facility] [address], [place], [address], 10/10/2021 15:32:06 03/27/20 22 XR, femur , 2 or more view No observ ation record ed. jose [facility] [address], [place], [address], 03/27/2022 15:12:53 09/22/19 23 XR, elbow , 3 or more view No observ ation record ed. [email or web address] [facility] [address], [place], [address], 09/22/2022 11:12:22 Result Notes None recorded. Problems Name Problem SNOMED Code Status Onset Date Resolution Date Notes Provider Name and Address Organization Details Recorded Time Sprained finger/thum b Active 2018 Daryn Saleem MD [address], [place], [address], [facility] 9 17:01:16 Traumatic dislocation of joint of finger 729187290 Active 2018 Daryn Saleem MD [address], [place], [address], [facility] 9 17:01:34 Joint pain in right hand [id number] 108 Active 2018 Daryn Saleem MD [address], [place], [address], [facility] 9 17:01:37 Pain in finger 02621105 Active 2018 Daryn Saleem MD [address], [place], [address], [facility] 9 13:44:50 Acquired trigger finger 7276290 Active 2019 Daryn Saleem MD [address], [place], [address], [facility] 0 13:19:55 Effusion of joint of hand 03921918 Active 2019 Daryn Saleem MD [address], [place], [address], [facility] 0 14:03:53 Greater trochanteri c pain syndrome 8619800 Active 2021 ENRIQUE MATTSON MD [address], [place], [address], [facility] 2 15:33:50 Problem Notes None recorded. Procedures Surgical History Date Name Laterality Status Provider Name and Address Organization Details Recorded Time 10/10/19 22 Greater Trochanteric Bursal Injection 80mg - Avino completed ENRIQUE MATTSON MD [address], [place], [place], [address] [place] [address], [facility] 10/10/2021 15:32:44 07/19/19 21 P&A - Tom completed Emigdio Santos DPM [address], [place], [address] [place] [address], [facility] 07/19/2020 11:31:28 09/18/19 20 Trigger Finger Injection - Stiven completed Daryn Saleem MD [address], [place], [address] [place] [address], [facility] 09/18/2019 13:19:17 10/07/19 19 Ultrasound Achilles rupture - Tom completed Emigdio Santos DPM [address], [place], [address] [place] [address], [facility] 10/07/2018 01:14:16 Hysterectomy completed Bakari Montanez PA-C [address], [place], [address] [place] [address], [facility] 12/03/2017 08:54:44 Removal of tonsils completed Bakari Montanez PA-C [address], [place], [address] [place] [address], [facility] 12/03/2017 08:54:50 Imaging Results None recorded. Procedure Notes None recorded. Medical Equipment None Reported. Allergies Allergen ID Allergen Name Allergen Category Reaction Reaction Severity Criticality Documentation Date Start Date Code Code System Note Provider Name and Address Organization Details Recorded Time 521395 No known allergy (situatio n) Not available Not available Not available Not available 04/27/20162009 50007 [id number] SNOMED Not Available [facility] 6 19:22:18 No known drug allergies Medications Name Sig Start Date Stop Date Status Note LastModified by Organization Details LastModified Time amoxicillin 500 mg capsule TAKE 1 CAPSULE BY MOUTH EVERY 8 HOURS UNTIL FINISHED active Not Available Not Available No t Available atorvastati n 40 mg tablet TAKE ONE TABLET BY MOUTH ONE TIME DAILY 10/09 completed Not Available Not Available Not Available prednisone 10 mg tablet TAKE 6 TABLETS BY MOUTH ON DAY 1, THEN DECREASE BY 1 TABLET DAILY UNTIL FINISHED 08/30 completed Not Available Not Available Not Available atorvastati n 20 mg tablet TAKE ONE TABLET BY MOUTH ONE TIME DAILY active Not Available Not Available No t Available ipratropium 0.5 mg-albutero l 3 mg (2.5 mg base)/3 mL nebulizatio n soln INHALE ONE VIAL VIA NEBULIZER EVERY 12 HOURS NEEDED FOR COUGH active Not Available Not Available No t Available ketoconazol e 2 % shampoo 11/12 completed Not Available Not Available Not Available azithromyci n 250 mg tablet TAKE TWO TABLETS BY MOUTH ON DAY 1, THEN TAKE ONE TABLET ONE TIME DAILY ON DAYS 2-5 active Not Available Not Available No t Available ibuprofen 800 mg tablet TAKE ONE TABLET BY MOUTH THREE TIMES A DAY ( DO NOT TAKE MORE THAN 5 CONSECUTI VE DAYS IN A ROW ) 08/30 completed Not Available Not Available Not Available clarithromy lilo 500 mg tablet 12/03 completed Not Available Not Available Not Available ondansetron HCl 8 mg tablet TAKE ONE TABLET BY MOUTH THREE TIMES A DAY NEEDED 10/09 completed Not Available Not Available Not Available meloxicam 15 mg tablet TAKE ONE TABLET BY MOUTH ONE TIME DAILY 10/09 completed Not Available Not Available Not Available prednisone 20 mg tablet TAKE THREE TABLETS BY MOUTH ONE TIME DAILY FOR 3 DAYS THEN TAKE TWO TABLETS BY MOUTH ONE TIME DAILY FOR 3 DAYS THEN TAKE ONE TABLET BY MOUTH active Not Available Not Available No t Available methylpredn isolone 4 mg tablet 11/12 completed Not Available Not Available Not Available clobetasol 0.05 % topical cream APPLY CREAM TO SCALP TOPICALLY TWICE DAILY FOR 14 DAYS active Not Available Not Available No t Available clindamycin HCl 150 mg capsule TAKE TWO CAPSULES BY MOUTH EVERY 6 HOURS FOR 3 DAYS, ON DAY 4 BEGIN TAKING ONE CAPSULE BY MOUTH EVERY 6 HOURS UNTIL FINISHED 08/30 completed Not Available Not Available Not Available metronidazo le 500 mg tablet TAKE ONE TABLET BY MOUTH THREE TIMES A DAY 01/23 completed Not Available Not Available Not Available acyclovir 400 mg tablet 07/18 completed Not Available Not Available Not Available omeprazole 40 mg capsule,del ayed release TAKE ONE CAPSULE BY MOUTH ONE TIME DAILY 30 MINUTES BEFORE MORNING MEAL active Not Available Not Available No t Available triamcinolo ne acetonide 0.1 % topical cream APPLY TO THE AFFECTED AREA(S) TOPICALLY TWICE DAILY FOR UP TO 2 WEEKS AT A TIME 08/30 completed Not Available Not Available Not Available amoxicillin 875 mg tablet TAKE ONE TABLET BY MOUTH TWICE A DAY FOR 10 DAYS 10/09 completed Not Available Not Available Not Available dicyclomine 20 mg tablet TAKE 1 TABLET BY MOUTH 3 TIMES A DAY 08/30 completed Not Available Not Available Not Available Mapap (acetaminop hen) 500 mg capsule TAKE 1 TABLET BY MOUTH EVERY 6 HOURS NEEDED FOR FEVER OR PAIN 10/09 completed Not Available Not Available Not Available benzonatate 100 mg capsule 1 CAPSULE 3 TIMES PER DAY NEEDED FOR COUGH active Not Available Not Available No t Available cephalexin 500 mg capsule 10/06 completed Not Available Not Available Not Available triamcinolo ne acetonide 0.1 % topical ointment APPLY ONE APPLICATI ON ON THE SKIN TWO TIMES A DAY; APPLY TO ARMS NEEDED FOR ITCH 10/09 completed Not Available Not Available Not Available clobetasol 0.05 % topical foam 11/12 completed Not Available Not Available Not Available omeprazole 20 mg capsule,del ayed release TAKE ONE CAPSULE BY MOUTH EVERY MORNING active Not Available Not Available No t Available montelukast 10 mg tablet TAKE ONE TABLET BY MOUTH EVERY MORNING active Not Available Not Available No t Available codeine 10 mg-guaifene sin 100 mg/5 mL oral liquid TAKE 10 ML BY MOUTH EVERY FOUR HOURS NEEDED FOR COUGH active Not Available Not Available No t Available clobetasol 0.05 % topical ointment APPLY THIN LAYER TO AFFECTED AREA ONCE DAILY FOR 1 WEEK, THEN NEEDED FOR ITCHING active Not Available Not Available No t Available epinephrine 0.3 mg/0.3 mL injection, auto-inject or 12/03 completed Not Available Not Available Not Available prednisone 5 mg tablets in a dose pack 10/06 completed Not Available Not Available Not Available ibuprofen 600 mg tablet TAKE 1 TABLET BY MOUTH FOUR TIMES A DAY WITH MEALS NEEDED 10/09 completed Not Available Not Available Not Available levofloxaci n 500 mg tablet TAKE ONE TABLET BY MOUTH EVERY 24 HOURS FOR 7 DAYS active Not Available Not Available No t Available estradiol 0.01% (0.1 mg/gram) vaginal cream INSERT 0.5 GRAMS VAGINALLY THREE TIMES WEEKLY DIRECTED active Not Available Not Available No t Available levofloxaci n 750 mg tablet TAKE ONE TABLET BY MOUTH ONE TIME DAILY FOR 5 DAYS 10/09 completed Not Available Not Available Not Available methylpredn isolone 4 mg tablets in a dose pack TAKE DIRECTED ON PACKAGE active Not Available Not Available No t Available albuterol sulfate HFA 90 mcg/actuati on aerosol inhaler INHALE ONE PUFF BY MOUTH EVERY 6 HOURS NEEDED FOR WHEEZING active Not Available Not Available No t Available hydroxyzine HCl 10 mg tablet 11/12 completed Not Available Not Available Not Available fluticasone propionate 50 mcg/actuati on nasal spray,suspe nsion USE TWO SPRAYS IN EACH NOSTRIL ONE TIME DAILY active Not Available Not Available No t Available doxycycline hyclate 100 mg tablet 11/12 completed Not Available Not Available Not Available naproxen 500 mg tablet TAKE 1 TABLET BY MOUTH TWICE A DAY FOR 10 DAYS NEEDED FOR PAIN 10/09 completed Not Available Not Available Not Available diazepam 5 mg tablet 04/06 completed Not Available Not Available Not Available amoxicillin 875 mg-potassiu m clavulanate 125 mg tablet 11/12 completed Not Available Not Available Not Available amoxicillin 500 mg-potassiu m clavulanate 125 mg tablet TAKE ONE TABLET BY MOUTH THREE TIMES A DAY FOR 10 DAYS USE ONLY UPON FLARE UP 08/30 completed Not Available Not Available Not Available azithromyci n 500 mg tablet TAKE 1 TABLET BY MOUTH DAILY FOR 3 DAYS 10/09 completed Not Available Not Available Not Available cyclobenzap rine 5 mg tablet TAKE 1 TABLET BY MOUTH EVERY 8 HOURS NEEDED FOR PAIN X5 DAYS 10/09 completed Not Available Not Available Not Available rosuvastati n 10 mg tablet TAKE ONE TABLET BY MOUTH ONE TIME DAILY 10/09 completed Not Available Not Available Not Available chlorhexidi ne gluconate 0.12 % mouthwash PLEASE SEE ATTACHED FOR DETAILED DIRECTION S 10/09 completed Not Available Not Available Not Available sodium fluoride 1.1 % dental paste USE DIRECTED 03/31 /2022 completed Not Available Not Available Not Available diclofenac 1 % topical gel APPLY 2 GRAMS TO THE AFFECTED AREA(S) BY TOPICAL ROUTE 4 TIMES PER DAY active Not Available Not Available No t Available azelastine 205.5 mcg (0.15 %) nasal spray SPRAY ONE SPRAY IN EACH NOSTRIL ONE TIME DAILY PREFERRED IN THE EVENING TIME active Not Available Not Available No t Available estradiol 10 mcg vaginal tablet 07/18 completed Not Available Not Available Not Available Suprep Bowel Prep Kit 17.5 gram-3.13 gram-1.6 gram oral solution TAKE 177 MLS BY MOUTH TWO TIMES A DAY 08/30 completed Not Available Not Available Not Available Duexis 800 mg-26.6 mg tablet Take 1 tablet 3 times a day by oral route. 11/12 completed Not Available Not Available Not Available Sorilux 0.005 % topical foam 10/06 completed Not Available Not Available Not Available lancets 28 gauge 12/03 completed Not Available Not Available Not Available Pennsaid 20 mg/gram/act uation (2 %) topical soln in metered-dos e pump APPLY 2 PUMPS (40 MG) TO THE AFFECTED AREA(S) BY TOPICAL ROUTE 2 TIMES PER DAY 10/06 completed Not Available Not Available Not Available Enstilar 0.005 %-0.064 % topical foam 04/06 completed Not Available Not Available Not Available Imvexxy Maintenance Pack 10 mcg vaginal insert 11/12 completed Not Available Not Available Not Available Vitals Date Recorded Body height Body mass index (BMI) Body weight Provider Name and Address Organization Details Last Updated DateTime 08/30/2020 157.48 cm 24.1 kg/m2 75757.19 g Kathy Mayes [facility] 08/30/2020 09:05:36 Date Recorded Body height Provider Name an d Address Organization Details Last Updated DateTime 09/22/2022 157.48 cm Mignon Murillo [facility] 09/22/2022 11:12:08 Date Recorded Body height Body mass index (BMI) Body weight Provider Name and Address Organization Details Last Updated DateTime 10/09/2021 157.48 cm 26 kg/m2 88033.55 g Hanna Schilling [facility] 10/09/2021 13:37:06 Date Recorded Body height Provider Name an d Address Organization Details Last Updated DateTime 01/23/2022 157.48 cm Mignon Murillo [facility] 01/23/2022 11:26:56 Date Recorded Body height Provider Name an d Address Organization Details Last Updated DateTime 03/27/2022 157.48 cm Katie Stewartt [facility] 03/27/2022 14:36:11 Social History Question Answer Notes LastModified by Organizat ion Details LastModified Time Tobacco Smoking Status Former Smoker Not Available Epion 12/03/2017 08:29:33 What Is Your Level Of Caffeine Consumption? Moderate [email or web address] Information not available 12/03/2017 Which Of Your Hands Is Dominant? Right [email or web address] Information not available 12/03/2017 Are You ? No [email or web address] Information not available 12/03/2017 What Was The Date Of Your Most Recent Tobacco Screening? 12/12/2018 [email or web address] Information not available 09/22/2022 How Much Tobacco Do You Smoke? 1 PPW [email or web address] Information not available 12/03/2017 What Types Of Sporting Activities Do You Participate In? Running, Tennis, Golf [email or web address] Information not available 12/03/2017 How Many Years Have You Smoked Tobacco? 4 [email or web address] Information not available 12/03/2017 Sex: Unknown Functional Status Question Answer Note LastModified by Organizat CuPcAk[employer] & other things you bake Details LastModified Time What is your level of alcohol consumption? Occasional [email or web address] Information not available 12/03/2017 Are you currently employed? No [email or web address] Information not available 04/06/2019 What is your occupation? retired [email or web address] Information not available 04/06/2019 What is your exercise level? Moderate [email or web address] Information not available 12/03/2017 Mental Status None recorded. Family History Relationship Description Onset Age of this Age Resolved Age Notes LastModified by Organization Details LastModified Time Father No current problems or disability [email or web address] Not available 09/22 10:50:52 Father Alzheimer's disease pt. added direct ly (08/30) [email or web address] Not available 08/30/2020 08:48:07 Mother No current problems or disability [email or web address] Not available 09/22 10:50:52 Mother Heart disease pt. added direct ly (08/30) [email or web address] Not available 08/30/2020 08:48:46 Mother Pulmonary embolism pt. added direct ly (08/30) [email or web address] Not available 08/30/2020 08:48:46 Medical History Condition Response Coronary Artery Disease N Gout N Head Trauma/Injury N Artificial Joints N Migraines N Thyroid Problems N COPD N Depression N Lung Disease N Pacemaker N Edema N Anemia N Back Pain N Deep Vein Thrombosis N Diabetes N Varicose Veins N Bleeding Disorder N Arthritis N Seizures/Epilepsy N Blood Clot N AIDS/HIV N Acid Reflux (GERD) Y Cancer N Stroke N Asthma N Leg or Foot Ulcers N Substance Abuse N Peripheral Vascular Disease N Back Injury N High Cholesterol Y Hepatitis N Liver Disease N Heart Disease N Rheumatoid Arthritis N Pulmonary Embolism N Fibromyalgia N Headaches N Hypertension N Osteoporosis N Kidney Disease N Gynecological HistoryNo gynecological history recorded. Obstetrics History GPAL:G 0 P 0 0 0 0 Past Encounters Encounter ID Performer Location Encounter Start Date Encounter Closed Date Diagnosis/Indication Diagnosis SNOMED-CT Code Diagnosis ICD10 Code Diagnosis IMO Codes Diagnosis Note [id number] Maria Eugenia Fox MD [facility] [address] [address] 12/03/2017 08:18:27 12/03/2017 09:07:27 Pain of shoulder region 38509664 M25.511 Inflammati on of rotator cuff tendon 641770708 M65.811 [id number] Demetrius Medina MD [facility] [address],[facility] [address] [place] [address] 02/25/2018 13:11:29 02/25/2018 14:14:36 Pain of left ankle joint 9420435953 3673684 M25.572 [id number] Emigdio Santos DPM [facility] [address] [address] 10/06/2018 13:52:05 10/06/2018 14:54:35 Rupture of Achilles tendon 146207337 M66.862 Joint pain in ankle and foot 708156268 M25.572 [id number] Emigdio Santos DPM [facility] [address] [address] 11/14/2018 14:47:02 11/14/2018 14:58:11 Rupture of Achilles tendon 512030653 M66.862 [id number] Jose Mcelroy MD [facility] [address] [facility] [address] [place] [address] 12/12/2018 14:54:53 12/12/2018 15:21:02 Neck pain 09032883 M54.2 Patient advised to guarded activity and to avoid excessive bending, lifting, twisting. Patient is not to lift >15lbs. Patient advised to go to the ER with worsening neck pain, leg or arm stiffness, unsteadine ss in gait, arm weakness, or worsening numbness/t ingling in arms. 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 At this time I recommende d a course of physical therapy. Rx given. Patient was advised against general life positions which may worsen her condition. Should her pain worsen or should pain not improve after physical therapy or should she start having radiating symptoms, we will obtain a cervical MRI prior return to clinic. Cervical precaution s discussed with patient [id number] Daryn Saleem MD [facility] [address] 7 04/06/2019 14:51:46 04/06/2019 15:52:49 Joint pain in right hand 1926057835 995412 M25.541 Sprained finger/thumb 28 1383808 S63.634A Traumatic dislocation of joint of finger 339180594 S63.254A [id number] [facility] [address] 7 04/20/2019 13:25:29 04/20/2019 13:53:50 Traumatic dislocation of joint of finger 387839368 S63.254A S63.254D Sprained finger/thumb 28 0400217 S63.634A S63.694D Joint pain in right hand 3074768987 237682 M25.541 Pain in finger 47794052 M79.644 [id number] Daryn Saleem MD [facility] [address] [address] 04/28/2019 10:04:55 04/28/2019 10:26:56 Sprained finger/thumb 221960642 S63.634A S63.694D Traumatic dislocation of joint of finger 273211340 S63.254A S63.254D Pain in finger 40292897 M79.644 Joint pain in right hand 2993508012 117886 M25.541 [id number] Daryn Saleem MD [facility] [address] [place] [address] 05/18/2019 13:50:32 05/18/2019 14:29:59 Traumatic dislocation of joint of finger 914889378 S63.254A S63.254D Pain in finger 78309958 M79.644 Sprained finger/thumb 28 6611285 S63.634A S63.694D Joint pain in right hand 0636206192 084235 M25.541 [id number] Daryn Saleem MD [facility] [address] [place] [address] 7 06/12/2019 14:38:40 06/12/2019 15:21:57 Joint pain in right hand 9105705512 188726 M25.541 Traumatic dislocation of joint of finger 694665319 S63.254A S63.254D Pain in finger 48602593 M79.644 Sprained finger/thumb 28 1277997 S63.634A S63.694D [id number] Daryn Saleem MD [facility] [address] [place] [address] 7 07/13/2019 15:50:39 07/13/2019 16:30:35 Traumatic dislocation of joint of finger 841582643 S63.254A S63.254D Sprained finger/thumb 28 4326580 S63.634A S63.694D Pain in finger 37895059 M79.644 Joint pain in right hand 2190185893 844739 M25.541 [id number] Daryn Saleem MD [facility] [address] [place] [address] 7 09/18/2019 13:01:58 09/18/2019 13:29:28 Traumatic dislocation of joint of finger 861490659 S63.254A S63.254D Sprained finger/thumb 28 3092913 S63.634A S63.694D Pain in finger 37210849 M79.644 Joint pain in right hand 0587767914 132690 M25.541 Acquired t mica splitter finger 1957650 M65.341 [id number] Daryn Saleem MD [facility] [address] [place] [address] 11/13/2019 13:37:48 11/13/2019 14:08:48 Traumatic dislocation of joint of finger 698053726 S63.254A S63.254D Acquired t mica splitter finger 2251133 M65.341 Sprained finger/thumb 28 5888100 S63.634A S63.694D Effusion o f joint of hand 96869726 M25.441 Pain in finger 52583097 M79.644 Joint pain in right hand 9389837919 711512 M25.541 [id number] Daryn Saleem MD [facility] [address] [place] [address] 7 11/27/2019 14:45:41 11/27/2019 15:52:27 Joint pain in right hand 0533233860 265847 M25.541 Traumatic dislocation of joint of finger 717761663 S63.254A S63.254D Acquired t mica splitter finger 7657197 M65.341 Effusion o f joint of hand 01401248 M25.441 Pain in finger 75596347 M79.644 Sprained finger/thumb 28 5884765 S63.634A S63.694D [id number] Emigdio Santos DPM [facility] [address] [place] [address] 7 07/19/2020 10:44:05 07/19/2020 11:32:32 Ingrowing toenail 950309832 L60.0 Pain in right foot 23934 03493 47907 M79.671 [id number] Carlos Eduardo Espinal MD [facility] [address] [place] [address] 7 08/30/2020 08:44:44 08/30/2020 09:11:26 Strain of gastrocnemius tendon 955347202 S86.112A [id number] ENRIQUE MATTSON MD [facility] [address] [facility],[address] [place] [address] 10/09/2021 13:18:16 10/09/2021 15:00:21 Pain of hip region 64812891 M25.552 Greater tr ochanteric pain syndrome 9575307 M70.62 Low back pain 598163600 M54.50 [id number] Duncan An MD [facility] [address] [facility],[address] [address] 01/23/2022 10:28:37 01/23/2022 11:53:32 Cervical radiculopathy 89043445 M54.12 Subacromia l bursitis of right shoulder 3395456745 291031 M75.51 M54.12 [id number] Demetrius Medina MD [facility] [address],[facility] [address] [place] [address] 03/27/2022 14:19:02 03/27/2022 15:21:02 Contusion of left thigh 4221313359 7118813 S70.12XA [id number] Duncan [facility] [address] [facility],[address] [address] 09/22/2022 10:49:46 09/22/2022 11:38:58 Pain of right elbow joint 5203761086 2600047 M25.521 Right late ral elbow tendinopathy 6844495117 91507 M77.11 Health Concerns Section Related Observation LastModified by Organization Detai ls LastModified Time None Recorded Concern Status LastModified by Organization Details LastModified Time None Recorded Advance Directives Directive None Recorded Payers Insurance Date Sequence Insurance Name Policy Number Policy Ibanez Covered Member ID Ibanez Member ID Guarantor Name 09/18/2022 2 [employer] - [place] (MEDICARE SUPPLEMENT) Amira Ramos [id number] Amira Ramos 07/19/2020 2 [employer] [id number] Amira Ramos [id number] Amira Ramos 07/18/2020 2 AARP (MEDICARE SUPPLEMENT) Amira Ramos [id number] Amira Ramos 09/21/2022 1 [place] Amira Ramos [id number] Amira Ramos 12/07/2019 1 PHANI (O) [id number] Amira Ramos [id number] Amira Ramos Notes Date Note Type Note Provider Name and Address Organization Details Recorded Time 08/30/2020 text/html Lower LegReporte d by PatientHPIFor swelling, patient reportsmild swelling. For associated symptoms, patient reportsweakness. For location, patient reportsleft,deep, andcalf. For quality, patient reportsachingandburnin g. For severity, patient reportsmoderate. For timing, patient reportsacute. For context, patient reportssports injury. For alleviating factors, patient reportsnothing helps. For aggravating factors, patient reportsexercise. For prior imaging, patient reportsultrasound. Katie beckford, [facility] 08/30/2020 09:27:59 10/09/2021 text/html Age: 66Gender: FemaleHip pain: leftDuration of pain: 3 daysLevel of pain: 8 over 10Location of hip pain: upper buttock area, lateralQuality of pain: aching, sharpConsistency of pain: constantMade worse with: getting up from a seated positionCurrent Medications: TylenolPrevious hip injections: noneMost recent injection given: none .Most recent injection lasted: nonePrior surgery to area: noneHistory of Blood Clot / PE: NoBlood thinner: NoOpioid pain medication: NoSmoker: NoVascular Disease: NoDiabetes: NoBMI: 26 PMH:DyslipidemiaGERD PSH: None ENRIQUE MATTSON MD [address], [place], [address], [facility] 10/10/2021 15:34:57 01/23/2022 text/html Is a eqhrd-hhig-lynaiegt female. She is retired. She enjoys playing golf as well as occasional tennis. She presents today with right shoulder pain that radiates down to her right elbow is right as well as her right hand. This started about 3 days ago. She reports that she had some right lateral sided elbow pain however this would often go away. She is played golf and this did not seem to bother her too much. However 3 days ago now she has difficulty sleeping with her arm over her body. Pain is very limiting. Duncan An MD [address], [place], [address], [facility] 09/21/2022 20:34:03 03/27/2022 text/html 66 year old female states that she hit her left thigh on her boat trailer on 03/19/22. She said it's originally it did not bother her period over the past few days she states it has become more sore and black and blue period she is not limping. Demetrius Medina MD [address], [place], [address], [facility] 03/27/2022 15:13:33 09/22/2022 text/html The patient is a 67-year-old wbaad-fdid-wmbfgjws female. She presents today with right lateral sided elbow pain. The pain is mostly on the lateral aspect of the elbow. She denies any injuries. Is worse with lifting anything. Duncan An MD [address], [place], [address], [facility] 09/28/2022 08:00:44 OBGyn Episode No OBEpisode recorded.
--- OUTSIDE RECORDS SUMMARY | 2025-06-26 19:57 | XMS_ITS | Clinical Summary ---
[facility] Address [address] [place] [address] Care Team Providers Care Foreign Exchange Trader Name Role Phone Presser, Kem Cadena MD Primary Care Provider [phone] Allergies No known active allergies Medications albuterol (PROVENTIL HFA;VENTOLIN HFA; PROAIR HFA) 90 mcg/actuation inhaler INHALE ONE PUFF BY MOUTH EVERY 6 HOURS NEEDED FOR WHEEZING 3 Active atorvastatin (LIPITOR) 20 mg tablet atorvastatin 20 mg tablet TAKE ONE TABLET BY MOUTH ONE TIME DAILY Active azelastine 205.5 mcg (0.15 %) Pomaria 3 Active clobetasoL (TEMOVATE) 0.05 % cream APPLY CREAM TO SCALP TOPICALLY TWICE DAILY FOR 14 DAYS 2 Active omeprazole (PRILOSEC) 20 mg capsule Take 20 mg total (1 capsule) by mouth as needed. Active montelukast (SINGULAIR) 10 mg tablet montelukast 10 mg tablet TAKE ONE TABLET BY MOUTH EVERY MORNING Active guaiFENesin (HUMIBID E) 400 mg Tab Take 400 mg total (1 tablet) by mouth every 4 (four) hours as needed. 60 tablet 3 Active Additional Information Patient not taking.Reported on 10/07/2022 fluticasone propionate (FLONASE NASL) by Nasal route. Active busPIRone (BUSPAR) 5 mg tablet Take 10 mg total (2 tablets) by mouth every evening. 30 tablet 1 3 Active Additional Information Patient not taking.Reported on 10/28/2022 Active Problems Problem Noted Date Diagnosed Date Elevated bilirubin 10/15/2022 Assessment & Plan (10/15/2022 10:03 AM EDT): Isolated persistently elevated bili. Check for GIlberts Pancreatic mass 10/15/2022 Assessment & Plan (10/28/2022 9:17 AM EDT): NO new symptoms. -9lb since september. Amylase/Lipase wnl as of 10/07/22. Pt referred to subspecialty GI for EUS axel to evaluate this mass. She has appt with Dr. Garza for Nov 11 2022. Total time spent was 30 minutes, out of which more than 50% of time was spent in discussion of diagnosis and importance of compliance of treatment plan. Chronic sinusitis with recurrent bronchitis 09/09 Assessment & Plan (10/07/2022 11:34 AM EDT): Pt advised to follow up with her ENT for evaluation, as there is evidence of sinusitis that could be cause of cough. She was not able to tolerate humibid due to dizziness. Continue nasal corticosteroid, as bulging tympanic membranes are less pronounced. Assessment & Plan (09/21/2022 10:24 AM EDT): Bulging tm with reddened bilat ear canals. Red beefy turbinates. Consistent with allergen/viral related irritation with bronchitis. Try bid mucolytic, and nasocorticoid BID, push fluids, and follow up with pulmonlogist as planned at the end of September. I do not feel these symptoms are related to acid reflux, as high dose PPI has no effect and symptoms atypical of gerd. Abdominal pain Assessment & Plan (10/15/2022 10:05 AM EDT): Ct abdomen reviewed. No pathology to explain upper abdominal pain. Labs today, MRCP to evaluate pancreatic duct. CT shows calcification in pancreas. Consider eus to evaluate pending MRCP results. Start buspar as directed. Total time spent was 30 minutes, out of which more than 50% of time was spent in discussion of diagnosis and importance of compliance of treatment plan. Assessment & Plan (10/07/2022 11:36 AM EDT): DDx: FD, pancreatitis, IBS. Pt has a long history of this, but symptoms come and go. Pt not acutely ill today. Pain is exacerbated by eating and pt elusive about how much alcohol she consumes daily. I suspect this abdominal pain is related to stress, possibly gastritis due to etoh intake. Pt admits to being in the middle of a relocation and she has a lot to do. She is seeing multiple practitioners for the same complaints, as she states that she went to her PCP today and had blood work done with ct thorax ordered for cough as well as undergoing workup by pulmonology. CT abdomen, pancreatic enzymes to evaluate for acute process. Trial high dose PPI ineffective to control this pain, as discussed in prior visits. FU 2 weeks, will trial buspar at that time if negative workup. Total time spent was 40 minutes, out of which more than 50% of time was spent in discussion of diagnosis and importance of compliance of treatment plan. Social History Tobacco Use Types Packs/Day Years Used Date Smoking Tobacco: Former Cigarettes Smokeless Tobacco: Never Tobacco Cessation:Counseling Given: Not Answered Alcohol Use Standard Drinks/Week Comments Yes 0 (1 standard drink = 0.6 oz pur e alcohol) occasionally PHQ-2 Answer Date Recorded PHQ-9 Total Score 2 10/27/2022 Comments Unknown Sex and Gender Information Value Date Recorded Sex Assigned at Not on file Legal Sex Female 5:48 PM EST Gender Identity Not on file Sexual Orientation Not on file Last Filed Vital Signs Vital Sign Reading Time Taken Comments Blood Pressure 153/83 10/28/2022 8:26 AM EDT Pulse 71 10/28/2022 8:26 AM EDT Temperature 36.6 C (97.9 F) 10/28/2022 8:26 AM EDT Respiratory Rate - - Oxygen Saturation - - Inhaled Oxygen Concentration - - Weight 60.8 kg (134 lb) 10/28/2022 8:26 AM EDT Height 170.2 cm (5' 7 ) 10/28/2022 8:26 AM EDT Body Mass Index 20.99 10/28/2022 8:26 AM EDT Plan of Treatment Health Maintenance Due Date Last Done Comments Breast Cancer Screening 1954 Cologuard 1954 Depression Screening & Follow Up 1954 FIT 1954 FOBT 1954 Flex Sigmoidoscopy 1954 Medicare Annual Wellness (AWV) 1954 IMM SERIES: MMR Vaccines (1 of 1 - Standard series) 1955 Social Drivers of Health Assessment 1955 IMM SERIES: Varicella Vaccines (1 of 2 - 13+ 2-dose series) 1967 HEPATITIS C SCREENING 1972 Weight Management (Adult) 1972 IMM SERIES: DTAP/TDAP/TD/DTP (1 - Tdap) 1973 Annual Exam for 40yo+ 1994 Colonoscopy 2004 Colorectal Cancer Screening 2004 IMM SERIES: Zoster (1 of 2) 2004 Pneumococcal Vaccine 65+ (1 of 1 - PCV) 2004 DEXA Scan Screening 2019 Falls Risk Assessment 2019 GLAUCOMA SCREENING 67+ YR 2021 Influenza Vaccine (#1) 2025 8, 04/22/2017, 04/29/2016, Additional history exists IMM SERIES: SARS-COV2 and COVID-19 vaccines ( season) 2025 09/04/2020 IMM SERIES: HIB Vaccines Aged Out No longer eligible based on patient's age to complete this topic IMM SERIES: HPV Vaccines Aged Out No longer eligible based on patient's age to complete this topic IMM SERIES: Hepatitis A Vaccine Aged Out No longer eligible based on patient's age to complete this topic IMM SERIES: Hepatitis B Vaccine Aged Out No longer eligible based on patient's age to complete this topic IMM SERIES: Meningococcal ACWY Aged Out No longer eligible based on patient's age to complete this topic IMM SERIES: Meningococcal B Vaccines Aged Out No longer eligible based on patient's age to complete this topic IMM SERIES: Polio Vaccines Aged Out N o longer eligible based on patient's age to complete this topic IMM SERIES: Rotavirus Vaccines Aged Out No longer eligible based on patient's age to complete this topic Insurance [facility]ICARE [facility] [employer] [place] [id number] Care Teams Foreign Exchange Trader Relationship Specialty Start Date End Date PressKem cintron MD [address] [facility] [address] [place] [address] PCP - General Family Medicine 09/18/22
--- OUTSIDE RECORDS SUMMARY | 2025-06-26 19:57 | XMS_ITS | Patient Health Record ---
Author Organization [facility] Address [address] [place] [address] Care Team Providers Care Contact Center Engineer Name Role Phone LYLY MENDOZA Primary Care Provider Unav ailable LYLY MENDOZA Unavailable Allergies No Known Allergies Reason For Referral No Information Medications Medication SIG (Take, Route, Frequency, Duration) Notes Start Date End Date Status Atorvastatin Calcium 20 MG Tablet 1 tablet Orally Once a day Active Fluticasone Propionate (Inhal) 50 MCG/ACT Aerosol Powder Breath Activated 1 puff Inhalation Twice a day Active Aspirin 81 MG Tablet Delayed Release 1 tablet Orally Once a day Active Omeprazole 40 MG Capsule Delayed Release 1 capsule 30 minutes before morning meal Orally Once a dayas needed Active Social History Tobacco Use: Social History Observation Description Date Details (start date - stop date) Former Smoker NA - NA Social History Drugs/Alcohol: Social Info Question Answer Notes Alcohol Screen (Audit-C) Did you have a drink containing alcohol in the past year? Yes Points 0 Interpretation Negative Drugs Have you used drugs other than those for medical reasons in the past 12 months? No Drug Use/Abuse: Never Alcohol use: Do you consume Alcohol? Yes Frequency: Social Tobacco Use: Social Info Question Answer Notes Tobacco Use/Smoking Are you a former smoker How long has it been since you last smoked? > 10 years Additional Findings: Tobacco Non-User Ex-moderat e cigarette smoker (10-19/day) Tobacco use other than smoking: Are you an other tobacco user? No Additional Details Category Social Info Options Details Miscellaneous: Caffeine: 1 cup per day of coffee Diet Regular diet Activity Level Active lifestyle Exercise Type Swimming Advance Directive Living Will Problems Problem Type SNOMED Code ICD Code Onset Dates Problem Status W/U Status Risk Notes Problem Mixed hyperlipidemia (014045160) Mixed hyperlipidemia (E78.2) Active confirmed Problem Atherosclerosis of coronary artery without angina pectoris (138766042611856) Atherosclerosis of osage coronary artery of osage heart without angina pectoris (I25.10) Active confirmed Problem Diastolic dysfunction (6048826) Diastolic dysfunction (I51.9) Active confirmed Problem Aortic valve sclerosis (77434133) Aortic valve sclerosis (I35.8) Active confirmed Problem Former smoker (1881006) Former smoker (Z87.891) Active confirmed Problem Tricuspid incompetence, non-rheumatic (967110320) Nonrheumatic tricuspid valve regurgitation (I36.1) Active confirmed Problem Cardiomegaly (7229948) Concentric left ventricular hypertrophy (I51.7) Active confirmed Plan Of Treatment No Information Insurance Providers Payer Name Payer Address Payer Phone Subscriber Number Group Number Insured Name Patient Relationship to Insured Coverage Start Date Coverage End Date Medicare of [place] / [facility] [address] [address] [place] [address] [id number] Amira Ramos Self - patient is the insured 0 AARP MCR Supplement [address] [place] [address] [phone] [id number] Amira Ramos Self - patient is the insured 3 Medical (General) History Medical History History ICD Code Former smoker Z87.891 Mixed hyperlipidemia E78.2 Atherosclerosis of osage co ronary artery of osage heart without angina pectoris I25.10 Surgical History Surgery Date(Month/Year) hysterectomy breast biopsy
--- OUTSIDE RECORDS SUMMARY | 2025-06-26 19:57 | XMS_ITS | Clinical Summary ---
Author Organization [employer] [facility] [employer] [facility] Address [address] [place] [address] Care Team Providers Care Industrial Tech Instructor Name Role Phone Presser, Kem Boles MD Primary Care Provider Allergies No known active allergies Medications omeprazole (PriLOSEC) 20 MG capsule 09/13/2015 Active atorvastatin (LIPITOR) 20 MG tablet Take 20 mg by mouth. Active amoxicillin (AMOXIL) 875 MG tablet 03/24/2021 Active albuterol 90 mcg/actuation 2 puff inhaler Inhale 2 puffs every 4 (four) hours as needed. 07/03/2019 Active aspirin 81 MG tablet Take 81 mg by mouth daily. Active atorvastatin (LIPITOR) 40 MG tablet Take 40 mg by mouth daily. Active omeprazole (PriLOSEC) 20 MG capsule 06/12/2019 Active IMVEXXY MAINTENANCE PACK 10 mcg inst 06/10/2019 Active estradiol 10 mcg tab 07/08/2019 Active albuterol (PROVENTIL HFA;VENTOLIN HFA) 90 mcg/actuation inhaler 07/03/2019 Active acyclovir (ZOVIRAX) 400 MG tablet 06/12/2019 Active benzonatate (TESSALON) 100 MG capsule 07/03/2019 Active clobetasol (OLUX) 0.05 % topical foam 07/07/2019 Active Social History Tobacco Use Types Packs/Day Years Used Date Smoking Tobacco: Former Cigarettes 8 1 980 - 07/12/1987 Smokeless Tobacco: Never Tobacco Cessation:Counseling Given: Yes Comments No Sex and Gender Information Value Date Recorded Sex Assigned at Not on file Legal Sex Female 11:59 AM EDT Gender Identity Not on file Sexual Orientation Not on file Last Filed Vital Signs Vital Sign Reading Time Taken Comments Blood Pressure 128/82 03/31/2021 8:55 AM EDT Pulse 66 03/31/2021 8:55 AM EDT Temperature 37 C (98.6 F) 03/31/2021 8:55 AM EDT Respiratory Rate 18 03/31/2021 8:55 AM EDT Oxygen Saturation 99% 03/31/2021 8:55 AM EDT Inhaled Oxygen Concentration - - Weight 63 kg (139 lb) 03/31/2021 8:55 AM EDT Height 157.5 cm (5' 2 ) 03/31/2021 8:55 AM EDT Body Mass Index 25.42 03/31/2021 8:55 AM EDT Plan of Treatment Not on file Medical Devices Not on file Insurance [facility] [place] [address] [place] [address] Care Teams Industrial Tech Instructor Relationship Specialty Start Date End Date Presser, Kem Boles MD PCP - General Family Medicine 10/31/18
--- OUTSIDE RECORDS SUMMARY | 2025-06-26 19:57 | XMS_ITS | Patient Health Record ---
Author Organization [facility] Address 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 Yes How often did you have a dri nk containing alcohol in the past year? 2 to 3 times a week (3 points) How many drinks did you have on a typical day when you were drinking in the past year? 1 or 2 drinks (0 point) How often did you have six o r more drinks on one occasion in the past year? Never (0 point) Points 3 Interpretation Positive Tobacco Control (Standard) Question Answer Notes Tobacco use: Former smoker How long has it been since you last smoked? Grea ter than 10 years Problems Problem Type SNOMED Code ICD Code Onset Dates Problem Status W/U Status Risk Notes Problem Atherosclerotic hear t disease of [place] coronary artery without angina pectoris (780947343186782) Atherosclerotic heart disease of [place] coronary artery without angina pectoris (I25.10) Active confirmed Problem Tricuspid valve disorder, non-rheumatic (243579199) Tricuspid Regurgitation, nonrheumatic (I36.1) Active confirmed Problem Atherosclerotic hear t disease of [place] coronary artery without angina pectoris (438614352222219) CAD (Coronary Artery Disease), [place], w/o angina (I25.10) Active confirmed Problem Hypertension (03273371) HTN Hypertension (I10) Active confirmed Problem Pure hypercholesterolemia (984357814) HPL hyperlipidemia (E78.00) Active confirmed Problem Hyperlipidemia (84481829) Other hyperlipidemia (E78.49) Active confirmed Problem Angina (108753854) Atherosclerot ic heart disease of [place] coronary artery with unspecified angina pectoris (I25.119) Active confirmed Vital Signs Heart Rate 60 /min 04/03/2025 Blood pressure diastolic 76 mm Hg 04/03/2025 Oximetry 98 % 04/03/2025 Height 63 in 04/03/2025 Blood pressure systolic 130 mm Hg 04/03/2025 Weight 136 lbs 04/03/2025 BMI 24.09 kg/m2 04/03/2025 Encounters Encounter Location Date Provider Diagnosis [facility] [address] [place] [phone] 07/18/2024 Kevin Heath HTN Hypertension I1 0 [facility] [address] [place] [phone] 07/20/2024 Kevin Heath HTN Hypertension I1 0 [facility] [address] [place] [phone] 01/18/2025 Kevin Heath Tricuspid Regurgita tion, nonrheumatic I36.1 [place] [address] [place] [phone] 01/23/2025 Kevin Heath Tricuspid Regurgita tion, nonrheumatic I36.1 and HTN Hypertension I10 [facility] [address] [place] [phone] 04/03/2025 Kevin Heath HTN Hypertension I1 0 [place] [address] [phone] 04/09/2025 Kevin Heath Atherosclerotic hea rt disease of [place] coronary artery without angina pectoris I25.10 and Abn EKG R94.31 [place] [address] [address] 07/20/2024 Kevin Heath HTN Hypertension I1 0 ; Atherosclerotic heart disease of [place] coronary artery without angina pectoris I25.10 ; HPL hyperlipidemia E78.00 ; Palpitations R00.2 ; Abn EKG R94.31 ; Bradycardia R00.1 ; Tricuspid Regurgitation, nonrheumatic I36.1 ; Dizziness R42 and Other specified symptoms and signs involving the circulatory and respiratory systems R09.89 [place] [address] [phone] 01/23/2025 Kevin Heath HTN Hypertension I1 0 ; Atherosclerotic heart disease of [place] coronary artery without angina pectoris I25.10 ; Other hyperlipidemia E78.49 ; Palpitations R00.2 ; Abn EKG R94.31 ; Bradycardia R00.1 ; Tricuspid Regurgitation, nonrheumatic I36.1 ; Dizziness R42 and Other specified symptoms and signs involving the circulatory and respiratory systems R09.89 [place] [address] [address] 04/03/2025 Kevin Heath Atherosclerotic hea rt disease of [place] coronary artery with unspecified angina pectoris I25.119 ; HTN Hypertension I10 ; Other hyperlipidemia E78.49 ; Palpitations R00.2 ; Abn EKG R94.31 ; Bradycardia R00.1 ; Tricuspid Regurgitation, nonrheumatic I36.1 ; Dizziness R42 and Other specified symptoms and signs involving the circulatory and respiratory systems R09.89 [place] [address] [address] 04/03/2025 Kevin Heath [place] [address] [phone] 05/23/2025 Kevin Heath [place] [address] [phone] 05/28/2025 Kevin Heath Assessments Encounter Date Diagnosis (ICD Code) Assessment Notes Treatment Notes Treatment Clinical Notes Section Notes 04/09/2025 Atherosclerotic heart disease of [place] coronary artery without angina pectoris (ICD-10 - I25.10) 04/09/2025 Abn EKG (ICD-10 - R94.31) 04/03/2025 Atherosclerotic heart disease of [place] coronary artery with unspecified angina pectoris (ICD-10 - I25.119) Mild to moderate non-obstructive CAD per [facility] 07/29/23. CP presents. Continue aggressive risk factor modifications. Continue optimal medical therapy. Order nitroglycerin 0.4 mg PRN. Continue ASA/statin therapy. Patient is not a good candidate for beta-denisse due to underlying bradycardia. order stress test to evaluate for ischemia Patient instructed to call 911 or present to the nearest ER for any concerning symptoms and expressed full understanding. 04/03/2025 HTN Hypertension (ICD-10 - I10) 01/23/2025 HTN Hypertension (ICD-10 - I10) Stable. Well controlled on losartan 25mg daily, extra does prn Renal US 07/18/24: Abdominal aorta 2.0 cm, right RAR 2.11, left RAR 3.03 Pt intolerant to amlodipine. recommend patient to continue low salt diet, closely monitor BP at home, call office if BP is high. 01/23/2025 Tricuspid Regurgitation, nonrheumatic (ICD-10 - I36.1) 01/18/2025 Tricuspid Regurgitation, nonrheumatic (ICD-10 - I36.1) 07/20/2024 Atherosclerotic heart disease of [place] coronary artery without angina pectoris (ICD-10 - I25.10) Mild to moderate non-obstructive CAD per [facility] 07/29/23. CP Free. Continue aggressive risk factor modifications. Continue optimal medical therapy. Periodic EKG. Routine surveillance. Continue ASA/statin therapy. Patient is not a good candidate for beta-denisse due to underlying bradycardia. Closely monitor HR. 07/20/2024 HTN Hypertension (ICD-10 - I10) Stable. Well controlled on losartan 25mg daily, extra does prn Renal US 07/18/24: Abdominal aorta 2.0 cm, right RAR 2.11, left RAR 3.03 Pt intolerant to amlodipine. recommend patient to continue low salt diet, closely monitor BP at home, call office if BP is high. 07/20/2024 HTN Hypertension (ICD-10 - I10) 07/18/2024 HTN Hypertension (ICD-10 - I10) 07/20/2024 HPL hyperlipidemia (ICD-10 - E78.00) Lipid panel 07/29/2023 TC 159, TG 48, HDL 77, LDL 72. Goal LDL <55, h/o muscle pain and fatigue on higher dose of statin. Advised lifestyle modifications. Continue heart healthy diet, continue statin therapy. Routine labs per PCP Patient will have repeat labs completed in August and will decide further medical therapy based off of latest LDL. 01/23/2025 HTN Hypertension (ICD-10 - I10) 01/23/2025 Other hyperlipidemia (ICD-10 - E78.49) Lipid panel 07/29/2023 TC 159, TG 48, HDL 77, LDL 72. 01/16/2025: TC 159, TG 62, HDL 72, LDL 75 Goal LDL <70, h/o muscle pain and fatigue on higher dose of statin. Advised lifestyle modifications. Continue heart healthy diet, continue statin therapy. Routine labs per PCP 01/23/2025 Atherosclerotic heart disease of [place] coronary artery without angina pectoris (ICD-10 - I25.10) Mild to moderate non-obstructive CAD per [facility] 07/29/23. CP Free. Continue aggressive risk factor modifications. Continue optimal medical therapy. Continue ASA/statin therapy. Patient is not a good candidate for beta-denisse due to underlying bradycardia. Routine surveillance. 04/03/2025 HTN Hypertension (ICD-10 - I10) Stable. Well controlled on losartan 25mg daily, extra does prn Renal US 07/18/24: Abdominal aorta 2.0 cm, right RAR 2.11, left RAR 3.03 Pt intolerant to amlodipine. recommend patient to continue low salt diet, closely monitor BP at home, call office if BP is high. 04/03/2025 Other hyperlipidemia (ICD-10 - E78.49) Lipid panel 07/29/2023 TC 159, TG 48, HDL 77, LDL 72. 01/16/2025: TC 159, TG 62, HDL 72, LDL 75 Goal LDL <70, h/o muscle pain and fatigue on higher dose of statin. Advised lifestyle modifications. Continue heart healthy diet, continue statin therapy. Routine labs per PCP 01/23/2025 Palpitations (ICD-10 - R00.2) Stable. Not a good candidate for BB due to underlying bradycardia. If worsening symptoms, consider event monitor vs Holter monitor. Closely monitor HR. Periodic EKG Patient advised to avoid caffeine, ETOH and other stimulants Increase hydration Patient also advised to go to ED if palpitations worsen. 07/20/2024 Palpitations (ICD-10 - R00.2) Rarely occuring palpitations. Not a good candidate for BB due to underlying bradycardia. If worsening symptoms, consider event monitor vs Holter monitor. Closely monitor HR. Periodic EKG Patient advised to avoid caffeine, ETOH and other stimulants Increase hydration Patient also advised to go to ED if palpitations worsen. 07/20/2024 Abn EKG (ICD-10 - R94.31) EKG today shows NSR, septal infarct age undetermined. HR 63. Routine EKG survelliance. 01/23/2025 Abn EKG (ICD-10 - R94.31) SR with acceptable HR. Routine EKG survelliance. 04/03/2025 Palpitations (ICD-10 - R00.2) Stable. Not a good candidate for BB due to underlying bradycardia. If worsening symptoms, consider event monitor vs Holter monitor. Closely monitor HR. Periodic EKG Patient advised to avoid caffeine, ETOH and other stimulants Increase hydration Patient also advised to go to ED if palpitations worsen. 04/03/2025 Abn EKG (ICD-10 - R94.31) SR with acceptable HR. Routine EKG survelliance. 01/23/2025 Bradycardia (ICD-10 - R00.1) HR acceptable in office. Consider Event monitor vs Holter monitor in the future. Closely monitor HR. periodic ECG 07/20/2024 Bradycardia (ICD-10 - R00.1) HR acceptable Consider Event monitor vs Holter monitor in the future. Closely monitor HR. periodic ECG 07/20/2024 Tricuspid Regurgitation, nonrheumatic (ICD-10 - I36.1) ECHO 07/27/23 (PCP) mild LVH, EF 60-65%, Grade I DD, mild AV sclerosis, mild TR. Stable. Routine ECHO survelliance. 01/23/2025 Tricuspid Regurgitation, nonrheumatic (ICD-10 - I36.1) mild TR Stable. Routine ECHO survelliance. 04/03/2025 Bradycardia (ICD-10 - R00.1) HR acceptable in office. Consider Event monitor vs Holter monitor in the future. Closely monitor HR. periodic ECG 04/03/2025 Tricuspid Regurgitation, nonrheumatic (ICD-10 - I36.1) mild TR Stable. Routine ECHO survelliance. 01/23/2025 Dizziness (ICD-10 - R42) Stable. Advised well hydration and slow position changes. Closely monitor BP and HR. 07/20/2024 Dizziness (ICD-10 - R42) Stable. Advised well hydration and slow position changes. Closely monitor BP and HR. 07/20/2024 Other specified symptoms and signs involving the circulatory and respiratory systems (ICD-10 - R09.89) b/l normal carotid arteries. Continue ASA/statin therapy. Routine survelliance. 01/23/2025 Other specified symptoms and signs involving the circulatory and respiratory systems (ICD-10 - R09.89) b/l normal carotid arteries. stable Continue ASA/statin therapy. Routine survelliance. 04/03/2025 Dizziness (ICD-10 - R42) Stable. Advised well hydration and slow position changes. Closely monitor BP and HR. 04/03/2025 Other specified symptoms and signs involving the circulatory and respiratory systems (ICD-10 - R09.89) b/l normal carotid arteries. stable Continue ASA/statin therapy. Routine survelliance. 07/20/2024 Other The patient car e coordinated with Dr. Brown by Florencio Mancini PA-C 01/23/2025 Other The patient car e coordinated with Dr. Brown by Florencio Richmond PA-C 04/03/2025 Other The patient car e coordinated with Dr. Brown by Florencio Richmond PA-C 04/16/2025 Other The patient car e coordinated with Dr. Brown by Florencio Richmond PA-C Plan Of Treatment Pending Test Test Name Order Date Echocardiogram 01/18/2025 Electrocardiogram (EKG) 01/23/2025 Electrocardiogram (EKG) 04/03/2025 Electrocardiogram (EKG) 07/20/2024 Ultrasound : Renal 07/18/2024 Carotid Ultrasound 09/14/2023 Nuclear Stress Test Exercise 04/09/2025 Future Test Test Name Order Date Electrocardiogram (EKG) 07/09/2024 Ultrasound : Renal 07/09/2024 Echocardiogram 01/17/2025 Electrocardiogram (EKG) 01/17/2025 Next Appt Details Provider Name:Kevin Heath, 07/13 09:00:00 AM, [address] [place] [address], [phone], Provider Name:Kevin Heath, 07/13 09:15:00 AM, [address] [place] [address], [phone], Insurance Providers Payer Name Payer Address Payer Phone Subscriber Number Group Number Insured Name Patient Relationship to Insured Coverage Start Date Coverage End Date [employer] [place] [address] [address] [place] [address] [id number] SAULO KIM Self - patient is the insured 0 [employer] A supplemental insurance [address] [place] [id number] PLAN G SAULO KIM Self - patient is the insured 3 Medical (General) History Medical History History ICD Code mild to moderate non-obstructive CAD HLD GERD remote smoking breast cancer Surgical History Surgery Date(Month/Year) hysterectomy
== END 2025-06-26 16:21 | disposition home or self-care (01) ==
PROVIDERS: Physician Assistant; Emergency Provider Emergency Medicine Emergency Medical Services
DX: L03.032 Cellulitis of left toe (principal); M79.675 Pain in left toe(s); I10 Essential (primary) hypertension; E78.5 Hyperlipidemia, unspecified
CPT/HCPCS: 36415; 73630; 80053; 85025; 85652; 86140; 99281; 99283

== ENCOUNTER → 2025-06-26 13:05 | Outpatient (BNV) | payer MEDICARE, OTHER, SELFPAY | PROVIDERS: Visit Provider Radiology Diagnostic Radiology | DX: M19.071 Primary osteoarthritis, right ankle and foot (principal) | CPT/HCPCS: 73630 ==

== ENCOUNTER 2025-06-28 08:04 | Outpatient (RCR) | payer MEDICARE, SELFPAY | END 2025-06-28 16:49 | disposition home or self-care (01) | LOC: HO.WCC 08:04 | PROVIDERS: Visit Provider Surgery Surgical Oncology | DX: L03.032 Cellulitis of left toe (principal); L60.8 Other nail disorders; I10 Essential (primary) hypertension | CPT/HCPCS: 99213 ==